=== PATIENT | male | born 1965 | race Caucasian/White ===

== ENCOUNTER 2017-08-21 02:58 | Inpatient (IN) | payer OTHER ==
[2017-08-21 03:59] LABS: ADD MAN DIFF? NO
[2017-08-21 04:08] LABS: BASOPHIL # 0.1 10^3/ul (0.0-0.1); BASOPHILS % 1.2 % (0.0-2.0); EOSINOPHILS # 0.6 10^3/ul (0.0-0.5); EOSINOPHILS % 8.9 % (0.0-7.0); HEMOGLOBIN 8.1 g/dl (14.0-18.0); LYMPHOCYTES # 1.5 10^3/ul (0.8-2.9); LYMPHOCYTES % 22.3 % (15.0-51.0); MEAN CORPUSCULAR HEMOGLOBIN 29.8 pg (29.0-33.0); MEAN CORPUSCULAR HGB CONC 33.8 g/dl (32.0-37.0); MEAN CORPUSCULAR VOLUME 88.2 fl (82.0-101.0); MEAN PLATELET VOLUME 8.8 fl (7.4-10.4); MONOCYTE # 0.7 10^3/ul (0.3-0.9); MONOCYTES % 11.2 % (0.0-11.0); NEUTROPHIL # 3.6 10^3/ul (1.6-7.5); NEUTROPHILS % 56.1 % (39.0-77.0); PLATELET COUNT 219 10^3/UL (140-415); RED BLOOD COUNT 2.72 10^6/ul (4.70-6.10)
[2017-08-21 04:08] LABS: WHITE BLOOD COUNT 6.5 10^3/ul (4.8-10.8)
[2017-08-21 04:09] LABS: ADD UMIC YES; UR ASCORBIC ACID 40 mg/dL (NEGATIVE); UR BACTERIA FEW /HPF (NONE SEEN); UR BILIRUBIN (Dip) NEGATIVE (NEGATIVE); UR BLOOD (Dip) 3+ mg/dL (NEGATIVE); UR CLARITY CLEAR (CLEAR); UR COLOR YELLOW (YELLOW); UR GLUCOSE (Dip) NEGATIVE (NEGATIVE); UR KETONES (Dip) NEGATIVE (NEGATIVE); UR LEUKOCYTE ESTERASE (Dip) NEGATIVE Leu/ul (NEGATIVE); UR NITRITE (Dip) NEGATIVE (NEGATIVE); UR RBC 144 /HPF (0-5); UR SPECIFIC GRAVITY (Dip) 1.011 (1.003-1.030); UR TOTAL PROTEIN (Dip) NEGATIVE (NEGATIVE); UR UROBILINOGEN (Dip) NEGATIVE (NEGATIVE); UR WBC 7 /HPF (0-5)
[2017-08-21 04:35] LABS: ALANINE AMINOTRANSFERASE 21 IU/L (13-69); ALBUMIN 3.2 g/dl (3.3-4.9); ALBUMIN/GLOBULIN RATIO 0.61; ALKALINE PHOSPHATASE 160 IU/L (42-121); ANION GAP 15 (8-16); ASPARTATE AMINO TRANSFERASE 29 IU/L (15-46); BILIRUBIN,INDIRECT 0.3 mg/dl (0-1.1); BILIRUBIN,TOTAL 0.3 mg/dl (0.2-1.3); BLOOD UREA NITROGEN 25 mg/dl (7-20); CALCIUM 9.3 mg/dl (8.4-10.2); CARBON DIOXIDE 23 mmol/L (21-31); CHLORIDE 100 mmol/L (97-110); CREATININE 1.52 mg/dl (0.61-1.24); GLUCOSE 116 mg/dl (70-220); LIPASE 360 U/L (23-300); POTASSIUM 4.4 mmol/L (3.5-5.1); SODIUM 134 mmol/L (135-144); TOTAL PROTEIN 8.4 g/dl (6.1-8.1)
[2017-08-21] MEDS: ONDANSETRON 4 MG INJ IV ×2 (04:48→22:04)
[2017-08-21] MEDS: morphine 4 MG/ML VIAL IV ×2 (04:48→06:45)
[2017-08-21] MEDS: PIPER-TAZO 3.375 GM IV (PMX) 50 ML IVPB (06:03)
[2017-08-21] MEDS: morphine 2 MG INJ IV ×3 (11:23→19:32)
[2017-08-21] MEDS ORDERED: DOCUSATE SODIUM 100 MG CAP PO (12:00)
[2017-08-21 17:50] LABS: ADD MAN DIFF? NO
[2017-08-21 17:55] LABS: BASOPHIL # 0.1 10^3/ul (0.0-0.1); BASOPHILS % 1.1 % (0.0-2.0); EOSINOPHILS # 0.4 10^3/ul (0.0-0.5); EOSINOPHILS % 5.4 % (0.0-7.0); HEMATOCRIT 20.9 % (42.0-52.0); HEMOGLOBIN 7.1 g/dl (14.0-18.0); LYMPHOCYTES # 1.7 10^3/ul (0.8-2.9); LYMPHOCYTES % 21.6 % (15.0-51.0); MEAN CORPUSCULAR HEMOGLOBIN 29.7 pg (29.0-33.0); MEAN CORPUSCULAR VOLUME 87.4 fl (82.0-101.0); MEAN PLATELET VOLUME 8.5 fl (7.4-10.4); MONOCYTE # 0.9 10^3/ul (0.3-0.9); MONOCYTES % 10.8 % (0.0-11.0); NEUTROPHIL # 4.8 10^3/ul (1.6-7.5); NEUTROPHILS % 60.7 % (39.0-77.0); PLATELET COUNT 199 10^3/UL (140-415); RED BLOOD COUNT 2.39 10^6/ul (4.70-6.10); RED CELL DISTRIBUTION WIDTH 14.8 % (11.5-14.5)
[2017-08-21] MEDS: LIDOCAINE 1% (MPF) 30 ML INJ INJ (22:09)
[2017-08-21] MEDS: FERROUS SULFATE (EC) 325 MG TAB PO (22:39)
[2017-08-21] MEDS: SOD CHLORIDE 0.9% 1,000 ML IV (22:39)
[2017-08-21] MEDS: CEFAZOLIN 1 GM/50 ML (PMX) 50 ML IVPB (23:19)
[2017-08-22] MEDS: CEFAZOLIN 1 GM/50 ML (PMX) 50 ML IVPB ×3 (05:16→21:24)
[2017-08-22] MEDS: morphine 2 MG INJ IV ×5 (05:19→21:24)
[2017-08-22] MEDS: FOLIC ACID 1 MG TAB PO (08:37)
[2017-08-22] MEDS: ZINC SULFATE 220 MG CAP PO (08:37)
[2017-08-22] MEDS: DULOXETINE 30 MG CAP DR PO (08:37)
[2017-08-22] MEDS: SPIRONOLACTONE 50 MG TAB PO (08:37)
[2017-08-22] MEDS: FERROUS SULFATE (EC) 325 MG TAB PO ×2 (08:37→21:24)
[2017-08-22] MEDS ORDERED: VITAMIN A & D 5 GM OINT PACKET TOP (10:32)
[2017-08-22 14:42] LABS: ADD MAN DIFF? NO
[2017-08-22 14:45] LABS: WHITE BLOOD COUNT 9.1 10^3/ul (4.8-10.8)
[2017-08-22 14:45] LABS: BASOPHIL # 0.1 10^3/ul (0.0-0.1); BASOPHILS % 1.1 % (0.0-2.0); EOSINOPHILS # 0.4 10^3/ul (0.0-0.5); EOSINOPHILS % 4.8 % (0.0-7.0); HEMATOCRIT 21.9 % (42.0-52.0); HEMOGLOBIN 7.7 g/dl (14.0-18.0); LYMPHOCYTES # 2.1 10^3/ul (0.8-2.9); LYMPHOCYTES % 23.2 % (15.0-51.0); MEAN CORPUSCULAR HEMOGLOBIN 30.4 pg (29.0-33.0); MEAN CORPUSCULAR HGB CONC 35.2 g/dl (32.0-37.0); MEAN CORPUSCULAR VOLUME 86.6 fl (82.0-101.0); MONOCYTE # 1.3 10^3/ul (0.3-0.9); MONOCYTES % 14.4 % (0.0-11.0); NEUTROPHIL # 5.1 10^3/ul (1.6-7.5); NEUTROPHILS % 55.9 % (39.0-77.0); PLATELET COUNT 162 10^3/UL (140-415); RED BLOOD COUNT 2.53 10^6/ul (4.70-6.10); RED CELL DISTRIBUTION WIDTH 15.6 % (11.5-14.5)
[2017-08-22 15:22] LABS: ANION GAP 13 (8-16); BLOOD UREA NITROGEN 23 mg/dl (7-20); CALCIUM 8.1 mg/dl (8.4-10.2); CARBON DIOXIDE 21 mmol/L (21-31); CHLORIDE 104 mmol/L (97-110); CREATININE 1.59 mg/dl (0.61-1.24); GLUCOSE 116 mg/dl (70-220); POTASSIUM 4.2 mmol/L (3.5-5.1); SODIUM 134 mmol/L (135-144)
[2017-08-22 15:33] LABS: INR 1.29; PROTIME 16.3 Sec (11.9-14.9); PT RATIO 1.3
[2017-08-22 15:34] LABS: PARTIAL THROMBOPLASTIN TIME 38.6 Sec (25.0-35.0)
[2017-08-22] MEDS: SOD CHLORIDE 0.9% 1,000 ML IV (17:26)
[2017-08-22] MEDS: TRIAMCINOLONE ACET 0.1% 15 GM CR TOP (21:23)
[2017-08-22] MEDS: ONDANSETRON 4 MG INJ IV (22:07)
[2017-08-23] MEDS ORDERED: HYDROmorphONE 0.5 MG/0.5 ML SYG IV (01:00)
[2017-08-23] MEDS: HYDROmorphONE 0.5 MG/0.5 ML SYG IV ×6 (01:44→21:51)
[2017-08-23 06:12] LABS: ADD MAN DIFF? NO
[2017-08-23 06:15] LABS: WHITE BLOOD COUNT 7.5 10^3/ul (4.8-10.8)
[2017-08-23 06:15] LABS: BASOPHIL # 0.1 10^3/ul (0.0-0.1); BASOPHILS % 1.1 % (0.0-2.0); EOSINOPHILS # 0.5 10^3/ul (0.0-0.5); EOSINOPHILS % 6.8 % (0.0-7.0); HEMATOCRIT 21.8 % (42.0-52.0); HEMOGLOBIN 7.5 g/dl (14.0-18.0); LYMPHOCYTES # 1.8 10^3/ul (0.8-2.9); LYMPHOCYTES % 23.4 % (15.0-51.0); MEAN CORPUSCULAR HEMOGLOBIN 29.9 pg (29.0-33.0); MEAN CORPUSCULAR HGB CONC 34.4 g/dl (32.0-37.0); MEAN CORPUSCULAR VOLUME 86.9 fl (82.0-101.0); MEAN PLATELET VOLUME 9.3 fl (7.4-10.4); MONOCYTE # 0.9 10^3/ul (0.3-0.9); MONOCYTES % 12.4 % (0.0-11.0); NEUTROPHIL # 4.2 10^3/ul (1.6-7.5); NEUTROPHILS % 55.9 % (39.0-77.0); PLATELET COUNT 154 10^3/UL (140-415); RED BLOOD COUNT 2.51 10^6/ul (4.70-6.10); RED CELL DISTRIBUTION WIDTH 15.5 % (11.5-14.5)
[2017-08-23 06:40] LABS: ANION GAP 11 (8-16); BLOOD UREA NITROGEN 19 mg/dl (7-20); CALCIUM 8.1 mg/dl (8.4-10.2); CARBON DIOXIDE 20 mmol/L (21-31); CHLORIDE 109 mmol/L (97-110); CREATININE 1.17 mg/dl (0.61-1.24); GLUCOSE 109 mg/dl (70-220); POTASSIUM 3.9 mmol/L (3.5-5.1); SODIUM 136 mmol/L (135-144)
[2017-08-23] MEDS: CEFAZOLIN 1 GM/50 ML (PMX) 50 ML IVPB ×3 (06:40→21:13)
[2017-08-23] MEDS: ZINC SULFATE 220 MG CAP PO (08:17)
[2017-08-23] MEDS: DULOXETINE 30 MG CAP DR PO (08:17)
[2017-08-23] MEDS: FERROUS SULFATE (EC) 325 MG TAB PO ×2 (08:18→21:13)
[2017-08-23] MEDS: FOLIC ACID 1 MG TAB PO (08:18)
[2017-08-23] MEDS: SPIRONOLACTONE 50 MG TAB PO (08:18)
[2017-08-23] MEDS: TRIAMCINOLONE ACET 0.1% 15 GM CR TOP ×2 (08:19→21:00)
[2017-08-24] MEDS: HYDROmorphONE 0.5 MG/0.5 ML SYG IV ×6 (02:05→23:43)
[2017-08-24] MEDS: CEFAZOLIN 1 GM/50 ML (PMX) 50 ML IVPB ×3 (05:51→22:06)
[2017-08-24 06:26] LABS: ABNORMAL IP MESSAGE 1; HEMATOCRIT 19.1 % (42.0-52.0); MEAN CORPUSCULAR HEMOGLOBIN 30.2 pg (29.0-33.0); MEAN CORPUSCULAR VOLUME 88.8 fl (82.0-101.0); MEAN PLATELET VOLUME 9.1 fl (7.4-10.4); PLATELET COUNT 137 10^3/UL (140-415); POSITIVE DIFF @See below; RED BLOOD COUNT 2.15 10^6/ul (4.70-6.10); RED CELL DISTRIBUTION WIDTH 15.5 % (11.5-14.5)
[2017-08-24 06:26] LABS: WHITE BLOOD COUNT 7.1 10^3/ul (4.8-10.8)
[2017-08-24 06:49] LABS: ALANINE AMINOTRANSFERASE 25 IU/L (13-69); ALBUMIN 2.2 g/dl (3.3-4.9); ALBUMIN/GLOBULIN RATIO 0.51; ALKALINE PHOSPHATASE 122 IU/L (42-121); ANION GAP 13 (8-16); ASPARTATE AMINO TRANSFERASE 28 IU/L (15-46); BILIRUBIN,INDIRECT 0.4 mg/dl (0-1.1); BILIRUBIN,TOTAL 0.4 mg/dl (0.2-1.3); BLOOD UREA NITROGEN 15 mg/dl (7-20); CALCIUM 8.4 mg/dl (8.4-10.2); CARBON DIOXIDE 19 mmol/L (21-31); CHLORIDE 112 mmol/L (97-110); CREATININE 1.02 mg/dl (0.61-1.24); GLUCOSE 107 mg/dl (70-220); POTASSIUM 4.2 mmol/L (3.5-5.1); SODIUM 140 mmol/L (135-144); TOTAL PROTEIN 6.5 g/dl (6.1-8.1)
[2017-08-24 07:02] LABS: PROTIME 15.4 Sec (11.9-14.9); PT RATIO 1.2
[2017-08-24 07:03] LABS: PARTIAL THROMBOPLASTIN TIME 34.9 Sec (25.0-35.0)
[2017-08-24 07:07] LABS: ADD MAN DIFF? YES; HEMOGLOBIN 6.5 g/dl (14.0-18.0)
[2017-08-24] MEDS: FERROUS SULFATE (EC) 325 MG TAB PO ×2 (08:25→20:27)
[2017-08-24] MEDS: DULOXETINE 30 MG CAP DR PO (08:25)
[2017-08-24] MEDS: ZINC SULFATE 220 MG CAP PO (08:25)
[2017-08-24] MEDS: TRIAMCINOLONE ACET 0.1% 15 GM CR TOP ×2 (08:25→20:28)
[2017-08-24] MEDS: SPIRONOLACTONE 50 MG TAB PO (08:25)
[2017-08-24] MEDS: FOLIC ACID 1 MG TAB PO (08:25)
[2017-08-24 10:00] LABS: ANISOCYTOSIS 2+ (0-0); BAND NEUTROPHILS #M 0.2 10^3/ul (0.0-0.6); BAND NEUTROPHILS % (M) 3 % (0-4); EOSINOPHILS % (M) 3 % (0-7); LYMPHOCYTES #M 1.6 10^3/ul (0.8-2.9); LYMPHOCYTES % (M) 23 % (15-51); MONOCYTE #M 0.5 10^3/ul (0.3-0.9); MONOCYTES % (M) 8 % (0-11); PLATELET ESTIMATE NORMAL; POLYCHROMASIA 3+ (0-0); SEG NEUT #M 4.5 10^3/ul (1.7-7.5); SEGMENTED NEUTROPHILS (M) % 63 % (39-77); SMUDGE%M 2 % (0-0)
[2017-08-24 12:36] LABS: IMMEDIATE SPIN CROSSMATCH 1 6
[2017-08-25] MEDS: HYDROmorphONE 0.5 MG/0.5 ML SYG IV ×6 (03:43→23:51)
[2017-08-25 06:04] LABS: ADD MAN DIFF? NO
[2017-08-25 06:21] LABS: BASOPHIL # 0.1 10^3/ul (0.0-0.1); BASOPHILS % 1.1 % (0.0-2.0); EOSINOPHILS # 0.5 10^3/ul (0.0-0.5); EOSINOPHILS % 7.3 % (0.0-7.0); HEMATOCRIT 25.7 % (42.0-52.0); HEMOGLOBIN 8.5 g/dl (14.0-18.0); LYMPHOCYTES # 1.5 10^3/ul (0.8-2.9); LYMPHOCYTES % 23.2 % (15.0-51.0); MEAN CORPUSCULAR HGB CONC 33.1 g/dl (32.0-37.0); MEAN CORPUSCULAR VOLUME 87.7 fl (82.0-101.0); MONOCYTE # 0.7 10^3/ul (0.3-0.9); MONOCYTES % 10.7 % (0.0-11.0); NEUTROPHIL # 3.7 10^3/ul (1.6-7.5); NEUTROPHILS % 57.1 % (39.0-77.0); PLATELET COUNT 158 10^3/UL (140-415); RED BLOOD COUNT 2.93 10^6/ul (4.70-6.10); RED CELL DISTRIBUTION WIDTH 16.6 % (11.5-14.5)
[2017-08-25 06:21] LABS: WHITE BLOOD COUNT 6.5 10^3/ul (4.8-10.8)
[2017-08-25] MEDS: CEFAZOLIN 1 GM/50 ML (PMX) 50 ML IVPB ×3 (06:35→22:00)
[2017-08-25 06:49] LABS: ANION GAP 11 (8-16); BLOOD UREA NITROGEN 14 mg/dl (7-20); CALCIUM 8.2 mg/dl (8.4-10.2); CARBON DIOXIDE 19 mmol/L (21-31); CHLORIDE 110 mmol/L (97-110); GLUCOSE 89 mg/dl (70-220); POTASSIUM 4.8 mmol/L (3.5-5.1); SODIUM 135 mmol/L (135-144)
[2017-08-25] MEDS: ZINC SULFATE 220 MG CAP PO (09:29)
[2017-08-25] MEDS: FERROUS SULFATE (EC) 325 MG TAB PO ×2 (09:29→21:59)
[2017-08-25] MEDS: FOLIC ACID 1 MG TAB PO (09:29)
[2017-08-25] MEDS: TRIAMCINOLONE ACET 0.1% 15 GM CR TOP ×2 (09:29→21:59)
[2017-08-25] MEDS: DULOXETINE 30 MG CAP DR PO (09:29)
[2017-08-25] MEDS: SPIRONOLACTONE 50 MG TAB PO (09:29)
[2017-08-25] MEDS: ONDANSETRON 4 MG INJ IV (13:04)
[2017-08-25] MEDS: METOCLOPRAMIDE 10 MG INJ IV (16:12)
[2017-08-26] MEDS: METOCLOPRAMIDE 10 MG INJ IV (01:37)
[2017-08-26] MEDS: DIPHENOXYLATE/ATROPINE TAB PO (02:16)
[2017-08-26] MEDS: HYDROmorphONE 0.5 MG/0.5 ML SYG IV ×5 (04:33→22:13)
[2017-08-26] MEDS: CEFAZOLIN 1 GM/50 ML (PMX) 50 ML IVPB ×3 (05:28→22:08)
[2017-08-26 06:05] LABS: ADD MAN DIFF? NO
[2017-08-26 06:13] LABS: BASOPHIL # 0.1 10^3/ul (0.0-0.1); BASOPHILS % 0.3 % (0.0-2.0); EOSINOPHILS % 0.1 % (0.0-7.0); HEMATOCRIT 27.1 % (42.0-52.0); LYMPHOCYTES # 1.3 10^3/ul (0.8-2.9); LYMPHOCYTES % 6.1 % (15.0-51.0); MEAN CORPUSCULAR HEMOGLOBIN 29.5 pg (29.0-33.0); MEAN CORPUSCULAR HGB CONC 33.2 g/dl (32.0-37.0); MEAN CORPUSCULAR VOLUME 88.9 fl (82.0-101.0); MEAN PLATELET VOLUME 9.3 fl (7.4-10.4); MONOCYTE # 1.4 10^3/ul (0.3-0.9); MONOCYTES % 6.7 % (0.0-11.0); NEUTROPHIL # 18.3 10^3/ul (1.6-7.5); NEUTROPHILS % 86.3 % (39.0-77.0); PLATELET COUNT 172 10^3/UL (140-415); RED BLOOD COUNT 3.05 10^6/ul (4.70-6.10); RED CELL DISTRIBUTION WIDTH 16.5 % (11.5-14.5)
[2017-08-26 06:13] LABS: WHITE BLOOD COUNT 21.2 10^3/ul (4.8-10.8)
[2017-08-26] MEDS: SPIRONOLACTONE 50 MG TAB PO (09:38)
[2017-08-26] MEDS: FERROUS SULFATE (EC) 325 MG TAB PO ×2 (09:38→20:05)
[2017-08-26] MEDS: FOLIC ACID 1 MG TAB PO (09:38)
[2017-08-26] MEDS: TRIAMCINOLONE ACET 0.1% 15 GM CR TOP ×2 (09:38→20:05)
[2017-08-26] MEDS: ZINC SULFATE 220 MG CAP PO (09:38)
[2017-08-26] MEDS: DULOXETINE 30 MG CAP DR PO (09:38)
[2017-08-26 16:23] LABS: ADD MAN DIFF? NO
[2017-08-26 16:29] LABS: BASOPHIL # 0.1 10^3/ul (0.0-0.1); BASOPHILS % 0.4 % (0.0-2.0); EOSINOPHILS # 0.3 10^3/ul (0.0-0.5); EOSINOPHILS % 1.8 % (0.0-7.0); HEMATOCRIT 26.4 % (42.0-52.0); HEMOGLOBIN 8.9 g/dl (14.0-18.0); LYMPHOCYTES # 1.4 10^3/ul (0.8-2.9); LYMPHOCYTES % 7.9 % (15.0-51.0); MEAN CORPUSCULAR HEMOGLOBIN 30.2 pg (29.0-33.0); MEAN CORPUSCULAR HGB CONC 33.7 g/dl (32.0-37.0); MEAN CORPUSCULAR VOLUME 89.5 fl (82.0-101.0); MEAN PLATELET VOLUME 9.3 fl (7.4-10.4); MONOCYTE # 1.4 10^3/ul (0.3-0.9); MONOCYTES % 7.6 % (0.0-11.0); NEUTROPHILS % 81.9 % (39.0-77.0); PLATELET COUNT 155 10^3/UL (140-415); RED BLOOD COUNT 2.95 10^6/ul (4.70-6.10); RED CELL DISTRIBUTION WIDTH 16.2 % (11.5-14.5)
[2017-08-26 16:29] LABS: WHITE BLOOD COUNT 18.3 10^3/ul (4.8-10.8)
[2017-08-26 18:56] LABS: ADD UMIC YES; UR ASCORBIC ACID 20 mg/dL (NEGATIVE); UR BACTERIA FEW /HPF (NONE SEEN); UR BILIRUBIN (Dip) NEGATIVE (NEGATIVE); UR BLOOD (Dip) 3+ mg/dL (NEGATIVE); UR CLARITY CLEAR (CLEAR); UR COLOR YELLOW (YELLOW); UR GLUCOSE (Dip) NEGATIVE (NEGATIVE); UR KETONES (Dip) NEGATIVE (NEGATIVE); UR LEUKOCYTE ESTERASE (Dip) NEGATIVE Leu/ul (NEGATIVE); UR MUCUS FEW /HPF (NONE SEEN); UR NITRITE (Dip) NEGATIVE (NEGATIVE); UR RBC > 182 /HPF (0-5); UR SPECIFIC GRAVITY (Dip) 1.016 (1.003-1.030); UR TOTAL PROTEIN (Dip) 1+ mg/dl (NEGATIVE); UR UROBILINOGEN (Dip) NEGATIVE (NEGATIVE); UR WBC 15 /HPF (0-5)
[2017-08-26] MEDS ORDERED: TEMAZEPAM 15 MG CAP PO (23:59)
[2017-08-27] MEDS: HYDROmorphONE 0.5 MG/0.5 ML SYG IV ×4 (02:41→13:16)
[2017-08-27 05:50] LABS: ADD MAN DIFF? NO
[2017-08-27 05:54] LABS: BASOPHIL # 0.1 10^3/ul (0.0-0.1); BASOPHILS % 0.6 % (0.0-2.0); EOSINOPHILS # 0.5 10^3/ul (0.0-0.5); EOSINOPHILS % 3.9 % (0.0-7.0); HEMATOCRIT 24.4 % (42.0-52.0); HEMOGLOBIN 8.2 g/dl (14.0-18.0); LYMPHOCYTES # 1.1 10^3/ul (0.8-2.9); LYMPHOCYTES % 8.7 % (15.0-51.0); MEAN CORPUSCULAR HEMOGLOBIN 29.7 pg (29.0-33.0); MEAN CORPUSCULAR HGB CONC 33.6 g/dl (32.0-37.0); MEAN CORPUSCULAR VOLUME 88.4 fl (82.0-101.0); MEAN PLATELET VOLUME 9.2 fl (7.4-10.4); MONOCYTES % 7.7 % (0.0-11.0); NEUTROPHIL # 9.8 10^3/ul (1.6-7.5); NEUTROPHILS % 78.7 % (39.0-77.0); PLATELET COUNT 138 10^3/UL (140-415); RED BLOOD COUNT 2.76 10^6/ul (4.70-6.10); RED CELL DISTRIBUTION WIDTH 16.2 % (11.5-14.5)
[2017-08-27 05:54] LABS: WHITE BLOOD COUNT 12.4 10^3/ul (4.8-10.8)
[2017-08-27] MEDS: CEFAZOLIN 1 GM/50 ML (PMX) 50 ML IVPB ×3 (05:57→21:04)
[2017-08-27] MEDS: DULOXETINE 30 MG CAP DR PO (08:41)
[2017-08-27] MEDS: FERROUS SULFATE (EC) 325 MG TAB PO ×2 (08:41→21:03)
[2017-08-27] MEDS: FOLIC ACID 1 MG TAB PO (08:41)
[2017-08-27] MEDS: ZINC SULFATE 220 MG CAP PO (08:41)
[2017-08-27] MEDS: SPIRONOLACTONE 50 MG TAB PO (08:41)
[2017-08-27] MEDS: TRIAMCINOLONE ACET 0.1% 15 GM CR TOP ×2 (08:42→21:05)
[2017-08-27] MEDS: DIPHENOXYLATE/ATROPINE TAB PO (16:43)
[2017-08-27] MEDS: HYDROmorphONE 2 MG TAB PO ×2 (17:49→21:04)
[2017-08-27] MEDS: ZOLPIDEM 5 MG TAB PO (21:04)
[2017-08-28] MEDS: HYDROmorphONE 2 MG TAB PO ×4 (04:10→21:06)
[2017-08-28 05:44] LABS: ADD MAN DIFF? NO
[2017-08-28 05:59] LABS: BASOPHIL # 0.1 10^3/ul (0.0-0.1); BASOPHILS % 0.9 % (0.0-2.0); EOSINOPHILS # 0.8 10^3/ul (0.0-0.5); EOSINOPHILS % 10.6 % (0.0-7.0); HEMATOCRIT 24.4 % (42.0-52.0); HEMOGLOBIN 8.1 g/dl (14.0-18.0); LYMPHOCYTES # 1.2 10^3/ul (0.8-2.9); LYMPHOCYTES % 15.5 % (15.0-51.0); MEAN CORPUSCULAR HEMOGLOBIN 29.7 pg (29.0-33.0); MEAN CORPUSCULAR HGB CONC 33.2 g/dl (32.0-37.0); MEAN CORPUSCULAR VOLUME 89.4 fl (82.0-101.0); MEAN PLATELET VOLUME 9.4 fl (7.4-10.4); MONOCYTE # 0.9 10^3/ul (0.3-0.9); MONOCYTES % 11.6 % (0.0-11.0); NEUTROPHIL # 4.6 10^3/ul (1.6-7.5); NEUTROPHILS % 60.7 % (39.0-77.0); PLATELET COUNT 148 10^3/UL (140-415); RED BLOOD COUNT 2.73 10^6/ul (4.70-6.10)
[2017-08-28 05:59] LABS: WHITE BLOOD COUNT 7.6 10^3/ul (4.8-10.8)
[2017-08-28] MEDS: morphine 2 MG INJ IV ×3 (06:22→18:46)
[2017-08-28] MEDS: CEFAZOLIN 1 GM/50 ML (PMX) 50 ML IVPB ×3 (06:22→21:11)
[2017-08-28 06:28] LABS: ANION GAP 11 (8-16); BLOOD UREA NITROGEN 16 mg/dl (7-20); CALCIUM 8.3 mg/dl (8.4-10.2); CARBON DIOXIDE 16 mmol/L (21-31); CHLORIDE 108 mmol/L (97-110); CREATININE 0.86 mg/dl (0.61-1.24); GLUCOSE 92 mg/dl (70-220); POTASSIUM 4.1 mmol/L (3.5-5.1); SODIUM 131 mmol/L (135-144)
[2017-08-28] MEDS: FERROUS SULFATE (EC) 325 MG TAB PO ×2 (08:21→21:06)
[2017-08-28] MEDS: FOLIC ACID 1 MG TAB PO (08:21)
[2017-08-28] MEDS: DULOXETINE 30 MG CAP DR PO (08:21)
[2017-08-28] MEDS: SPIRONOLACTONE 50 MG TAB PO (08:21)
[2017-08-28] MEDS: ZINC SULFATE 220 MG CAP PO (08:21)
[2017-08-28] MEDS: TRIAMCINOLONE ACET 0.1% 15 GM CR TOP ×2 (08:21→21:11)
[2017-08-28] MEDS: VANCOMYCIN HCL 250 MG/5ML POSYG PO (16:48)
[2017-08-28] MEDS ORDERED: HYDROmorphONE 0.5 MG/0.5 ML SYG IV (19:30)
[2017-08-28] MEDS: IBUPROFEN 400 MG TAB PO (21:06)
[2017-08-28] MEDS: ZOLPIDEM 5 MG TAB PO (21:06)
[2017-08-28] MEDS: LIDOCAINE 5% PATCH TD (21:09)
[2017-08-29] MEDS: VANCOMYCIN HCL 250 MG/5ML POSYG PO ×4 (01:00→18:50)
[2017-08-29] MEDS: morphine 4 MG/ML VIAL IV ×3 (01:00→19:45)
[2017-08-29] MEDS: CEFAZOLIN 1 GM/50 ML (PMX) 50 ML IVPB ×2 (05:06→15:00)
[2017-08-29] MEDS: HYDROmorphONE 2 MG TAB PO ×2 (05:06→17:00)
[2017-08-29 05:51] LABS: HEMATOCRIT 23.8 % (42.0-52.0); HEMOGLOBIN 7.9 g/dl (14.0-18.0); MEAN CORPUSCULAR HEMOGLOBIN 29.9 pg (29.0-33.0); MEAN CORPUSCULAR HGB CONC 33.2 g/dl (32.0-37.0); MEAN CORPUSCULAR VOLUME 90.2 fl (82.0-101.0); MEAN PLATELET VOLUME 8.8 fl (7.4-10.4); PLATELET COUNT 140 10^3/UL (140-415); POSITIVE DIFF @See below; RED BLOOD COUNT 2.64 10^6/ul (4.70-6.10); RED CELL DISTRIBUTION WIDTH 15.9 % (11.5-14.5)
[2017-08-29 05:51] LABS: WHITE BLOOD COUNT 6.4 10^3/ul (4.8-10.8)
[2017-08-29 06:04] LABS: ADD MAN DIFF? YES
[2017-08-29 06:27] LABS: ANION GAP 12 (8-16); BLOOD UREA NITROGEN 16 mg/dl (7-20); CALCIUM 8.3 mg/dl (8.4-10.2); CARBON DIOXIDE 18 mmol/L (21-31); CHLORIDE 108 mmol/L (97-110); CREATININE 0.99 mg/dl (0.61-1.24); GLUCOSE 101 mg/dl (70-220); POTASSIUM 4.7 mmol/L (3.5-5.1); SODIUM 133 mmol/L (135-144)
[2017-08-29] MEDS: ZINC SULFATE 220 MG CAP PO (09:18)
[2017-08-29] MEDS: SPIRONOLACTONE 50 MG TAB PO (09:19)
[2017-08-29] MEDS: DULOXETINE 30 MG CAP DR PO (09:19)
[2017-08-29] MEDS: FOLIC ACID 1 MG TAB PO (09:19)
[2017-08-29] MEDS: FERROUS SULFATE (EC) 325 MG TAB PO ×2 (09:19→19:45)
[2017-08-29] MEDS: LIDOCAINE 5% PATCH TD (09:22)
[2017-08-29] MEDS: TRIAMCINOLONE ACET 0.1% 15 GM CR TOP ×2 (09:30→19:49)
[2017-08-29 09:46] LABS: ANISOCYTOSIS 1+ (0-0); BAND NEUTROPHILS #M 2.4 10^3/ul (0.0-0.6); BAND NEUTROPHILS % (M) 38 % (0-4); BASOPHILS % (M) 1 % (0-2); EOSINOPHILS % (M) 10 % (0-7); LYMPHOCYTES #M 0.8 10^3/ul (0.8-2.9); LYMPHOCYTES % (M) 13 % (15-51); MONOCYTES % (M) 16 % (0-11); PLATELET ESTIMATE NORMAL; POLYCHROMASIA 1+ (0-0); SEG NEUT #M 1.6 10^3/ul (1.7-7.5); SEGMENTED NEUTROPHILS (M) % 22 % (39-77)
[2017-08-29] MEDS: SOD CHLORIDE 0.9% 1,000 ML IV ×2 (13:30→23:30)
[2017-08-29] MEDS ORDERED: VANCOMYCIN IV PER PHARMACY XX (15:30)
[2017-08-29] MEDS: VANCOMYCIN 1.25 GM in SOD CHLORIDE 0.9% 250 ML IVPB (17:13)
[2017-08-29] MEDS: ZOLPIDEM 5 MG TAB PO (22:08)
[2017-08-30] MEDS: VANCOMYCIN HCL 250 MG/5ML POSYG PO ×5 (00:14→23:16)
[2017-08-30] MEDS: morphine 4 MG/ML VIAL IV ×6 (00:15→20:18)
[2017-08-30] MEDS: SOD CHLORIDE 0.9% 1,000 ML IV ×3 (04:24→16:20)
[2017-08-30] MEDS: VANCOMYCIN 750 MG in DEXTROSE 5% 150 ML IVPB ×2 (04:24→16:20)
[2017-08-30 06:12] LABS: WHITE BLOOD COUNT 4.1 10^3/ul (4.8-10.8)
[2017-08-30 06:12] LABS: ADD MAN DIFF? NO; EOSINOPHILS # 0.5 10^3/ul (0.0-0.5); EOSINOPHILS % 11.1 % (0.0-7.0); HEMATOCRIT 22.7 % (42.0-52.0); HEMOGLOBIN 7.6 g/dl (14.0-18.0); LYMPHOCYTES # 1.1 10^3/ul (0.8-2.9); LYMPHOCYTES % 25.8 % (15.0-51.0); MEAN CORPUSCULAR HEMOGLOBIN 29.9 pg (29.0-33.0); MEAN CORPUSCULAR HGB CONC 33.5 g/dl (32.0-37.0); MEAN CORPUSCULAR VOLUME 89.4 fl (82.0-101.0); MEAN PLATELET VOLUME 9.3 fl (7.4-10.4); NEUTROPHIL # 1.6 10^3/ul (1.6-7.5); NEUTROPHILS % 38.2 % (39.0-77.0); PLATELET COUNT 142 10^3/UL (140-415); RED BLOOD COUNT 2.54 10^6/ul (4.70-6.10); RED CELL DISTRIBUTION WIDTH 15.9 % (11.5-14.5)
[2017-08-30] MEDS: HYDROmorphONE 2 MG TAB PO ×4 (06:21→23:17)
[2017-08-30 06:51] LABS: ANION GAP 13 (8-16); BLOOD UREA NITROGEN 11 mg/dl (7-20); CALCIUM 8.5 mg/dl (8.4-10.2); CARBON DIOXIDE 16 mmol/L (21-31); CHLORIDE 108 mmol/L (97-110); CREATININE 0.73 mg/dl (0.61-1.24); GLUCOSE 98 mg/dl (70-220); POTASSIUM 4.7 mmol/L (3.5-5.1); SODIUM 132 mmol/L (135-144)
[2017-08-30 08:09] LABS: MONOCYTES % 23.1 % (0.0-11.0)
[2017-08-30] MEDS: FOLIC ACID 1 MG TAB PO (08:36)
[2017-08-30] MEDS: ZINC SULFATE 220 MG CAP PO (08:36)
[2017-08-30] MEDS: DULOXETINE 30 MG CAP DR PO (08:36)
[2017-08-30] MEDS: FERROUS SULFATE (EC) 325 MG TAB PO ×2 (08:36→20:18)
[2017-08-30] MEDS: SPIRONOLACTONE 50 MG TAB PO (08:38)
[2017-08-30] MEDS: LIDOCAINE 5% PATCH TD (08:38)
[2017-08-30] MEDS: TRIAMCINOLONE ACET 0.1% 15 GM CR TOP ×2 (08:42→20:25)
[2017-08-30] MEDS: ONDANSETRON 4 MG INJ IV (09:06)
[2017-08-30] MEDS ORDERED: VANCOMYCIN 1 GM in NS 250 ML IVPB (11:00)
[2017-08-30] MEDS: SOD CHLORIDE 0.9% 250 ML IV* (15:33)
[2017-08-30 16:59] LABS: IRON 38 ug/dl (35-150)
[2017-08-30 17:08] LABS: % IRON SATURATION 19 % SAT (22-52); TOTAL IRON BINDING CAPACITY 205 ug/dl (241-421)
[2017-08-30 17:20] LABS: PLATELET COUNT 153 10^3/UL (140-415)
[2017-08-30 17:28] LABS: INR 1.27; PARTIAL THROMBOPLASTIN TIME 37.9 Sec (25.0-35.0); PROTIME 16.1 Sec (11.9-14.9); PT RATIO 1.3
[2017-08-30 17:32] LABS: THROMBIN TIME 15.8 SEC (13.8-19.1)
[2017-08-30 18:30] LABS: IMMEDIATE SPIN CROSSMATCH 1 2
[2017-08-30 19:55] LABS: LACTATE DEHYDROGENASE 301 IU/L (313-618)
[2017-08-30 21:17] LABS: FOLATE > 20.0 ng/ml (2.8-20.0)
[2017-08-30] MEDS: ZOLPIDEM 5 MG TAB PO (23:16)
[2017-08-31] MEDS: HYDROmorphONE 2 MG TAB PO ×4 (04:08→21:23)
[2017-08-31 04:10] LABS: ADD MAN DIFF? NO
[2017-08-31 04:12] LABS: BASOPHIL # 0.1 10^3/ul (0.0-0.1); BASOPHILS % 1.4 % (0.0-2.0); EOSINOPHILS # 0.4 10^3/ul (0.0-0.5); HEMATOCRIT 27.3 % (42.0-52.0); HEMOGLOBIN 9.3 g/dl (14.0-18.0); LYMPHOCYTES % 26.7 % (15.0-51.0); MEAN CORPUSCULAR HEMOGLOBIN 30.2 pg (29.0-33.0); MEAN CORPUSCULAR HGB CONC 34.1 g/dl (32.0-37.0); MEAN CORPUSCULAR VOLUME 88.6 fl (82.0-101.0); MEAN PLATELET VOLUME 8.9 fl (7.4-10.4); MONOCYTE # 0.8 10^3/ul (0.3-0.9); MONOCYTES % 21.9 % (0.0-11.0); NEUTROPHIL # 1.4 10^3/ul (1.6-7.5); NEUTROPHILS % 39.2 % (39.0-77.0); PLATELET COUNT 147 10^3/UL (140-415); RED BLOOD COUNT 3.08 10^6/ul (4.70-6.10); RED CELL DISTRIBUTION WIDTH 15.6 % (11.5-14.5)
[2017-08-31 04:12] LABS: WHITE BLOOD COUNT 3.6 10^3/ul (4.8-10.8)
[2017-08-31 04:33] LABS: ANION GAP 10 (8-16); BLOOD UREA NITROGEN 9 mg/dl (7-20); CALCIUM 8.4 mg/dl (8.4-10.2); CARBON DIOXIDE 17 mmol/L (21-31); CHLORIDE 113 mmol/L (97-110); CREATININE 0.74 mg/dl (0.61-1.24); GLUCOSE 101 mg/dl (70-220); POTASSIUM 4.9 mmol/L (3.5-5.1); SODIUM 135 mmol/L (135-144)
[2017-08-31 04:38] LABS: VANCOMYCIN,TROUGH 13.2 ug/ml (10.0-20.0)
[2017-08-31] MEDS: SOD CHLORIDE 0.9% 1,000 ML IV ×3 (05:10→17:26)
[2017-08-31] MEDS: VANCOMYCIN 750 MG in DEXTROSE 5% 150 ML IVPB ×2 (05:11→17:25)
[2017-08-31] MEDS: VANCOMYCIN HCL 250 MG/5ML POSYG PO ×4 (05:11→23:14)
[2017-08-31] MEDS: SPIRONOLACTONE 50 MG TAB PO (09:20)
[2017-08-31] MEDS: FOLIC ACID 1 MG TAB PO (09:20)
[2017-08-31] MEDS: FERROUS SULFATE (EC) 325 MG TAB PO ×2 (09:20→21:23)
[2017-08-31] MEDS: DULOXETINE 30 MG CAP DR PO (09:20)
[2017-08-31] MEDS: ZINC SULFATE 220 MG CAP PO (09:21)
[2017-08-31] MEDS: LIDOCAINE 5% PATCH TD (09:22)
[2017-08-31] MEDS: TRIAMCINOLONE ACET 0.1% 15 GM CR TOP ×2 (09:23→21:24)
[2017-08-31] MEDS: morphine 4 MG/ML VIAL IV ×2 (11:48→17:33)
[2017-08-31 20:18] LABS: OCCULT BLOOD STOOL POSITIVE (NEGATIVE)
[2017-08-31] MEDS: ZOLPIDEM 5 MG TAB PO (22:41)
[2017-09-01] MEDS: HYDROmorphONE 2 MG TAB PO ×4 (02:25→21:31)
[2017-09-01] MEDS: VANCOMYCIN HCL 250 MG/5ML POSYG PO ×3 (05:24→17:27)
[2017-09-01] MEDS: VANCOMYCIN 750 MG in DEXTROSE 5% 150 ML IVPB (05:25)
[2017-09-01] MEDS: morphine 4 MG/ML VIAL IV (05:25)
[2017-09-01 06:31] LABS: WHITE BLOOD COUNT 4.2 10^3/ul (4.8-10.8)
[2017-09-01 06:31] LABS: ADD MAN DIFF? NO; BASOPHIL # 0.1 10^3/ul (0.0-0.1); BASOPHILS % 1.2 % (0.0-2.0); EOSINOPHILS # 0.4 10^3/ul (0.0-0.5); EOSINOPHILS % 9.5 % (0.0-7.0); HEMATOCRIT 27.6 % (42.0-52.0); HEMOGLOBIN 9.2 g/dl (14.0-18.0); LYMPHOCYTES # 1.2 10^3/ul (0.8-2.9); LYMPHOCYTES % 27.4 % (15.0-51.0); MEAN CORPUSCULAR HEMOGLOBIN 29.9 pg (29.0-33.0); MEAN CORPUSCULAR HGB CONC 33.3 g/dl (32.0-37.0); MEAN CORPUSCULAR VOLUME 89.6 fl (82.0-101.0); MEAN PLATELET VOLUME 9.1 fl (7.4-10.4); MONOCYTE # 0.8 10^3/ul (0.3-0.9); MONOCYTES % 19.4 % (0.0-11.0); NEUTROPHIL # 1.8 10^3/ul (1.6-7.5); NEUTROPHILS % 41.6 % (39.0-77.0); PLATELET COUNT 166 10^3/UL (140-415); RED BLOOD COUNT 3.08 10^6/ul (4.70-6.10)
[2017-09-01 06:58] LABS: ANION GAP 13 (8-16); BLOOD UREA NITROGEN 9 mg/dl (7-20); CALCIUM 8.6 mg/dl (8.4-10.2); CARBON DIOXIDE 16 mmol/L (21-31); CHLORIDE 114 mmol/L (97-110); CREATININE 0.79 mg/dl (0.61-1.24); GLUCOSE 93 mg/dl (70-220); POTASSIUM 4.9 mmol/L (3.5-5.1); SODIUM 138 mmol/L (135-144)
[2017-09-01] MEDS: TRIAMCINOLONE ACET 0.1% 15 GM CR TOP ×2 (09:01→21:09)
[2017-09-01] MEDS: SPIRONOLACTONE 50 MG TAB PO (09:01)
[2017-09-01] MEDS: FERROUS SULFATE (EC) 325 MG TAB PO ×2 (09:01→21:02)
[2017-09-01] MEDS: FOLIC ACID 1 MG TAB PO (09:01)
[2017-09-01] MEDS: ZINC SULFATE 220 MG CAP PO (09:01)
[2017-09-01] MEDS: DULOXETINE 30 MG CAP DR PO (09:01)
[2017-09-01] MEDS: LIDOCAINE 5% PATCH TD (09:04)
[2017-09-01] MEDS: ZOLPIDEM 5 MG TAB PO (21:30)
[2017-09-02] MEDS: VANCOMYCIN HCL 250 MG/5ML POSYG PO ×4 (00:17→17:49)
[2017-09-02] MEDS: HYDROmorphONE 2 MG TAB PO ×5 (03:04→21:45)
[2017-09-02] MEDS: LIDOCAINE 5% PATCH TD (08:39)
[2017-09-02] MEDS: FOLIC ACID 1 MG TAB PO (08:40)
[2017-09-02] MEDS: DULOXETINE 30 MG CAP DR PO (08:40)
[2017-09-02] MEDS: ZINC SULFATE 220 MG CAP PO (08:40)
[2017-09-02] MEDS: SPIRONOLACTONE 50 MG TAB PO (08:40)
[2017-09-02] MEDS: TRIAMCINOLONE ACET 0.1% 15 GM CR TOP ×2 (08:42→21:45)
[2017-09-02] MEDS: FERROUS SULFATE (EC) 325 MG TAB PO ×2 (08:52→21:44)
[2017-09-02] MEDS: CITRIC ACID/SODIUM CITRATE 15 ML CUP PO ×2 (17:03→21:44)
[2017-09-03] MEDS: HYDROmorphONE 2 MG TAB PO ×5 (02:18→20:24)
[2017-09-03] MEDS: VANCOMYCIN HCL 250 MG/5ML POSYG PO ×5 (02:19→17:53)
[2017-09-03 06:00] LABS: ADD MAN DIFF? NO
[2017-09-03 06:11] LABS: BASOPHIL # 0.1 10^3/ul (0.0-0.1); EOSINOPHILS # 0.4 10^3/ul (0.0-0.5); EOSINOPHILS % 5.5 % (0.0-7.0); HEMATOCRIT 30.8 % (42.0-52.0); HEMOGLOBIN 10.1 g/dl (14.0-18.0); LYMPHOCYTES # 1.4 10^3/ul (0.8-2.9); MEAN CORPUSCULAR HEMOGLOBIN 30.1 pg (29.0-33.0); MEAN CORPUSCULAR HGB CONC 32.8 g/dl (32.0-37.0); MEAN CORPUSCULAR VOLUME 91.7 fl (82.0-101.0); MEAN PLATELET VOLUME 8.7 fl (7.4-10.4); MONOCYTE # 0.7 10^3/ul (0.3-0.9); MONOCYTES % 10.7 % (0.0-11.0); NEUTROPHIL # 4.1 10^3/ul (1.6-7.5); NEUTROPHILS % 60.6 % (39.0-77.0); PLATELET COUNT 208 10^3/UL (140-415); RED BLOOD COUNT 3.36 10^6/ul (4.70-6.10); RED CELL DISTRIBUTION WIDTH 15.9 % (11.5-14.5)
[2017-09-03 06:11] LABS: WHITE BLOOD COUNT 6.8 10^3/ul (4.8-10.8)
[2017-09-03 06:55] LABS: ANION GAP 13 (8-16); BLOOD UREA NITROGEN 8 mg/dl (7-20); CALCIUM 8.8 mg/dl (8.4-10.2); CARBON DIOXIDE 20 mmol/L (21-31); CHLORIDE 110 mmol/L (97-110); CREATININE 0.77 mg/dl (0.61-1.24); GLUCOSE 96 mg/dl (70-220); POTASSIUM 4.6 mmol/L (3.5-5.1); SODIUM 138 mmol/L (135-144)
[2017-09-03] MEDS: CITRIC ACID/SODIUM CITRATE 15 ML CUP PO ×2 (09:03→20:23)
[2017-09-03] MEDS: FOLIC ACID 1 MG TAB PO (09:03)
[2017-09-03] MEDS: DULOXETINE 30 MG CAP DR PO (09:03)
[2017-09-03] MEDS: SPIRONOLACTONE 50 MG TAB PO (09:03)
[2017-09-03] MEDS: FERROUS SULFATE (EC) 325 MG TAB PO ×2 (09:03→20:22)
[2017-09-03] MEDS: ZINC SULFATE 220 MG CAP PO (09:03)
[2017-09-03] MEDS: TRIAMCINOLONE ACET 0.1% 15 GM CR TOP ×2 (09:05→20:23)
[2017-09-03] MEDS: LIDOCAINE 5% PATCH TD (09:05)
[2017-09-03] MEDS: ZOLPIDEM 5 MG TAB PO (21:20)
[2017-09-04] MEDS: VANCOMYCIN HCL 250 MG/5ML POSYG PO ×5 (00:04→23:21)
[2017-09-04] MEDS: HYDROmorphONE 2 MG TAB PO ×5 (01:48→23:21)
[2017-09-04 06:16] LABS: ADD MAN DIFF? NO
[2017-09-04 06:26] LABS: BASOPHIL # 0.1 10^3/ul (0.0-0.1); BASOPHILS % 1.1 % (0.0-2.0); EOSINOPHILS # 0.4 10^3/ul (0.0-0.5); EOSINOPHILS % 5.4 % (0.0-7.0); HEMATOCRIT 32.4 % (42.0-52.0); HEMOGLOBIN 10.5 g/dl (14.0-18.0); LYMPHOCYTES # 1.7 10^3/ul (0.8-2.9); LYMPHOCYTES % 23.9 % (15.0-51.0); MEAN CORPUSCULAR HEMOGLOBIN 29.7 pg (29.0-33.0); MEAN CORPUSCULAR HGB CONC 32.4 g/dl (32.0-37.0); MEAN CORPUSCULAR VOLUME 91.8 fl (82.0-101.0); MEAN PLATELET VOLUME 8.7 fl (7.4-10.4); MONOCYTE # 0.6 10^3/ul (0.3-0.9); MONOCYTES % 8.5 % (0.0-11.0); NEUTROPHIL # 4.2 10^3/ul (1.6-7.5); PLATELET COUNT 220 10^3/UL (140-415); RED BLOOD COUNT 3.53 10^6/ul (4.70-6.10); RED CELL DISTRIBUTION WIDTH 15.9 % (11.5-14.5)
[2017-09-04 06:57] LABS: ANION GAP 15 (8-16); BLOOD UREA NITROGEN 10 mg/dl (7-20); CALCIUM 8.9 mg/dl (8.4-10.2); CARBON DIOXIDE 21 mmol/L (21-31); CHLORIDE 108 mmol/L (97-110); CREATININE 0.74 mg/dl (0.61-1.24); GLUCOSE 91 mg/dl (70-220); POTASSIUM 4.7 mmol/L (3.5-5.1); SODIUM 139 mmol/L (135-144)
[2017-09-04] MEDS: morphine 4 MG/ML VIAL IV (07:51)
[2017-09-04] MEDS: CITRIC ACID/SODIUM CITRATE 15 ML CUP PO ×2 (08:54→20:03)
[2017-09-04] MEDS: SPIRONOLACTONE 50 MG TAB PO (08:55)
[2017-09-04] MEDS: FOLIC ACID 1 MG TAB PO (08:55)
[2017-09-04] MEDS: FERROUS SULFATE (EC) 325 MG TAB PO ×2 (08:55→20:03)
[2017-09-04] MEDS: DULOXETINE 30 MG CAP DR PO (08:56)
[2017-09-04] MEDS: ZINC SULFATE 220 MG CAP PO (08:56)
[2017-09-04] MEDS: LIDOCAINE 5% PATCH TD (08:59)
[2017-09-04] MEDS: TRIAMCINOLONE ACET 0.1% 15 GM CR TOP ×2 (09:03→20:03)
[2017-09-04] MEDS: ZOLPIDEM 5 MG TAB PO (21:33)
[2017-09-05] MEDS: HYDROmorphONE 2 MG TAB PO ×4 (03:21→23:37)
[2017-09-05] MEDS: VANCOMYCIN HCL 250 MG/5ML POSYG PO ×4 (05:36→23:37)
[2017-09-05] MEDS: morphine 4 MG/ML VIAL IV ×4 (05:37→20:40)
[2017-09-05 05:55] LABS: ADD MAN DIFF? NO
[2017-09-05 06:39] LABS: BASOPHIL # 0.1 10^3/ul (0.0-0.1); BASOPHILS % 0.9 % (0.0-2.0); EOSINOPHILS # 0.5 10^3/ul (0.0-0.5); EOSINOPHILS % 6.5 % (0.0-7.0); HEMATOCRIT 31.3 % (42.0-52.0); HEMOGLOBIN 10.3 g/dl (14.0-18.0); LYMPHOCYTES # 1.8 10^3/ul (0.8-2.9); LYMPHOCYTES % 23.5 % (15.0-51.0); MEAN CORPUSCULAR HEMOGLOBIN 29.8 pg (29.0-33.0); MEAN CORPUSCULAR HGB CONC 32.9 g/dl (32.0-37.0); MEAN CORPUSCULAR VOLUME 90.5 fl (82.0-101.0); MEAN PLATELET VOLUME 8.8 fl (7.4-10.4); MONOCYTE # 0.6 10^3/ul (0.3-0.9); MONOCYTES % 7.1 % (0.0-11.0); NEUTROPHIL # 4.8 10^3/ul (1.6-7.5); NEUTROPHILS % 61.4 % (39.0-77.0); PLATELET COUNT 214 10^3/UL (140-415); RED BLOOD COUNT 3.46 10^6/ul (4.70-6.10); RED CELL DISTRIBUTION WIDTH 15.7 % (11.5-14.5)
[2017-09-05 06:39] LABS: WHITE BLOOD COUNT 7.8 10^3/ul (4.8-10.8)
[2017-09-05 07:14] LABS: ANION GAP 12 (8-16); BLOOD UREA NITROGEN 13 mg/dl (7-20); CARBON DIOXIDE 23 mmol/L (21-31); CHLORIDE 108 mmol/L (97-110); CREATININE 0.77 mg/dl (0.61-1.24); GLUCOSE 96 mg/dl (70-220); POTASSIUM 4.9 mmol/L (3.5-5.1); SODIUM 138 mmol/L (135-144)
[2017-09-05] MEDS: ZINC SULFATE 220 MG CAP PO (08:50)
[2017-09-05] MEDS: FOLIC ACID 1 MG TAB PO (08:50)
[2017-09-05] MEDS: DULOXETINE 30 MG CAP DR PO (08:50)
[2017-09-05] MEDS: FERROUS SULFATE (EC) 325 MG TAB PO ×2 (08:50→20:39)
[2017-09-05] MEDS: SPIRONOLACTONE 50 MG TAB PO (08:50)
[2017-09-05] MEDS: CITRIC ACID/SODIUM CITRATE 15 ML CUP PO ×2 (08:50→20:39)
[2017-09-05] MEDS: LIDOCAINE 5% PATCH TD (08:52)
[2017-09-05] MEDS: TRIAMCINOLONE ACET 0.1% 15 GM CR TOP ×2 (08:52→20:39)
[2017-09-06] MEDS: ZOLPIDEM 5 MG TAB PO ×2 (00:30→21:36)
[2017-09-06] MEDS: VANCOMYCIN HCL 250 MG/5ML POSYG PO ×3 (05:14→17:37)
[2017-09-06] MEDS: morphine 4 MG/ML VIAL IV ×3 (05:15→21:36)
[2017-09-06 06:59] LABS: ANION GAP 11 (8-16); BLOOD UREA NITROGEN 14 mg/dl (7-20); CALCIUM 8.7 mg/dl (8.4-10.2); CARBON DIOXIDE 24 mmol/L (21-31); CHLORIDE 108 mmol/L (97-110); CREATININE 0.86 mg/dl (0.61-1.24); GLUCOSE 81 mg/dl (70-220); POTASSIUM 4.4 mmol/L (3.5-5.1); SODIUM 139 mmol/L (135-144)
[2017-09-06] MEDS: FERROUS SULFATE (EC) 325 MG TAB PO ×2 (08:19→20:01)
[2017-09-06] MEDS: ZINC SULFATE 220 MG CAP PO (08:19)
[2017-09-06] MEDS: CITRIC ACID/SODIUM CITRATE 15 ML CUP PO (08:19)
[2017-09-06] MEDS: DULOXETINE 30 MG CAP DR PO (08:19)
[2017-09-06] MEDS: SPIRONOLACTONE 50 MG TAB PO (08:19)
[2017-09-06] MEDS: FOLIC ACID 1 MG TAB PO (08:19)
[2017-09-06] MEDS: LIDOCAINE 5% PATCH TD (08:23)
[2017-09-06] MEDS: TRIAMCINOLONE ACET 0.1% 15 GM CR TOP ×2 (08:23→20:01)
[2017-09-06] MEDS: HYDROmorphONE 2 MG TAB PO ×2 (08:24→20:01)
[2017-09-07] MEDS: VANCOMYCIN HCL 250 MG/5ML POSYG PO ×5 (00:32→23:55)
[2017-09-07] MEDS: HYDROmorphONE 2 MG TAB PO ×5 (00:32→20:50)
[2017-09-07] MEDS: morphine 4 MG/ML VIAL IV ×2 (03:40→09:57)
[2017-09-07 06:57] LABS: ADD MAN DIFF? NO
[2017-09-07 07:04] LABS: BASOPHIL # 0.1 10^3/ul (0.0-0.1); BASOPHILS % 1.3 % (0.0-2.0); EOSINOPHILS # 0.4 10^3/ul (0.0-0.5); EOSINOPHILS % 6.3 % (0.0-7.0); HEMATOCRIT 30.3 % (42.0-52.0); HEMOGLOBIN 10.1 g/dl (14.0-18.0); LYMPHOCYTES # 1.7 10^3/ul (0.8-2.9); LYMPHOCYTES % 27.1 % (15.0-51.0); MEAN CORPUSCULAR HEMOGLOBIN 30.3 pg (29.0-33.0); MEAN CORPUSCULAR HGB CONC 33.3 g/dl (32.0-37.0); MEAN PLATELET VOLUME 9.1 fl (7.4-10.4); MONOCYTE # 0.5 10^3/ul (0.3-0.9); MONOCYTES % 8.6 % (0.0-11.0); NEUTROPHIL # 3.5 10^3/ul (1.6-7.5); NEUTROPHILS % 56.2 % (39.0-77.0); PLATELET COUNT 178 10^3/UL (140-415); RED BLOOD COUNT 3.33 10^6/ul (4.70-6.10); RED CELL DISTRIBUTION WIDTH 15.6 % (11.5-14.5)
[2017-09-07 07:04] LABS: WHITE BLOOD COUNT 6.2 10^3/ul (4.8-10.8)
[2017-09-07 07:33] LABS: ANION GAP 14 (8-16); BLOOD UREA NITROGEN 15 mg/dl (7-20); CARBON DIOXIDE 22 mmol/L (21-31); CHLORIDE 107 mmol/L (97-110); GLUCOSE 111 mg/dl (70-220); POTASSIUM 4.8 mmol/L (3.5-5.1); SODIUM 138 mmol/L (135-144)
[2017-09-07] MEDS: ZINC SULFATE 220 MG CAP PO (09:38)
[2017-09-07] MEDS: FOLIC ACID 1 MG TAB PO (09:38)
[2017-09-07] MEDS: SPIRONOLACTONE 50 MG TAB PO (09:38)
[2017-09-07] MEDS: FERROUS SULFATE (EC) 325 MG TAB PO ×2 (09:38→20:43)
[2017-09-07] MEDS: DULOXETINE 30 MG CAP DR PO (09:38)
[2017-09-07] MEDS: LIDOCAINE 5% PATCH TD (09:42)
[2017-09-07] MEDS: TRIAMCINOLONE ACET 0.1% 15 GM CR TOP ×2 (09:43→20:44)
[2017-09-07] MEDS ORDERED: BUPIVACAINE 0.5%/EPI 1:200,000 50 ML (MDV) INJ (18:00)
[2017-09-07] MEDS ORDERED: BETAMET NA PHOS/AC(6 MG/ML) 5ML INJ INJ (18:00)
[2017-09-08] MEDS: HYDROmorphONE 2 MG TAB PO ×4 (00:34→22:04)
[2017-09-08] MEDS: ZOLPIDEM 5 MG TAB PO ×2 (01:31→22:36)
[2017-09-08] MEDS: morphine 4 MG/ML VIAL IV ×4 (06:10→23:58)
[2017-09-08] MEDS: VANCOMYCIN HCL 250 MG/5ML POSYG PO ×4 (06:10→23:55)
[2017-09-08] MEDS: ZINC SULFATE 220 MG CAP PO (09:36)
[2017-09-08] MEDS: SPIRONOLACTONE 50 MG TAB PO (09:36)
[2017-09-08] MEDS: FOLIC ACID 1 MG TAB PO (09:36)
[2017-09-08] MEDS: DULOXETINE 30 MG CAP DR PO (09:36)
[2017-09-08] MEDS: FERROUS SULFATE (EC) 325 MG TAB PO ×2 (09:36→20:38)
[2017-09-08] MEDS: TRIAMCINOLONE ACET 0.1% 15 GM CR TOP ×2 (09:39→20:39)
[2017-09-08] MEDS: LIDOCAINE 5% PATCH TD (09:39)
[2017-09-09] MEDS: HYDROmorphONE 2 MG TAB PO ×4 (03:39→21:12)
[2017-09-09] MEDS: VANCOMYCIN HCL 250 MG/5ML POSYG PO ×3 (05:16→17:19)
[2017-09-09] MEDS: morphine 4 MG/ML VIAL IV ×3 (05:16→17:19)
[2017-09-09] MEDS: ZINC SULFATE 220 MG CAP PO (08:28)
[2017-09-09] MEDS: FERROUS SULFATE (EC) 325 MG TAB PO ×2 (08:28→21:13)
[2017-09-09] MEDS: DULOXETINE 30 MG CAP DR PO (08:29)
[2017-09-09] MEDS: SPIRONOLACTONE 50 MG TAB PO (08:29)
[2017-09-09] MEDS: FOLIC ACID 1 MG TAB PO (08:29)
[2017-09-09] MEDS: TRIAMCINOLONE ACET 0.1% 15 GM CR TOP ×2 (08:29→21:12)
[2017-09-09] MEDS: LIDOCAINE 5% PATCH TD (08:33)
[2017-09-09] MEDS: ZOLPIDEM 5 MG TAB PO (21:12)
[2017-09-10] MEDS: VANCOMYCIN HCL 250 MG/5ML POSYG PO ×4 (00:05→17:44)
[2017-09-10] MEDS: morphine 4 MG/ML VIAL IV ×2 (00:12→20:38)
[2017-09-10] MEDS: HYDROmorphONE 2 MG TAB PO ×4 (04:41→22:18)
[2017-09-10 07:27] LABS: ADD MAN DIFF? NO
[2017-09-10 07:34] LABS: BASOPHILS % 0.1 % (0.0-2.0); HEMATOCRIT 32.7 % (42.0-52.0); HEMOGLOBIN 10.1 g/dl (14.0-18.0); LYMPHOCYTES # 1.1 10^3/ul (0.8-2.9); LYMPHOCYTES % 9.3 % (15.0-51.0); MEAN CORPUSCULAR HEMOGLOBIN 29.6 pg (29.0-33.0); MEAN CORPUSCULAR HGB CONC 30.9 g/dl (32.0-37.0); MEAN CORPUSCULAR VOLUME 95.9 fl (82.0-101.0); MEAN PLATELET VOLUME 9.8 fl (7.4-10.4); MONOCYTE # 0.6 10^3/ul (0.3-0.9); MONOCYTES % 4.8 % (0.0-11.0); NEUTROPHIL # 10.4 10^3/ul (1.6-7.5); NEUTROPHILS % 85.4 % (39.0-77.0); PLATELET COUNT 204 10^3/UL (140-415); RED BLOOD COUNT 3.41 10^6/ul (4.70-6.10); RED CELL DISTRIBUTION WIDTH 15.9 % (11.5-14.5)
[2017-09-10 07:34] LABS: WHITE BLOOD COUNT 12.1 10^3/ul (4.8-10.8)
[2017-09-10 08:00] LABS: ANION GAP 13 (8-16); BLOOD UREA NITROGEN 30 mg/dl (7-20); CALCIUM 9.1 mg/dl (8.4-10.2); CARBON DIOXIDE 20 mmol/L (21-31); CHLORIDE 111 mmol/L (97-110); CREATININE 1.15 mg/dl (0.61-1.24); GLUCOSE 137 mg/dl (70-220); POTASSIUM 5.6 mmol/L (3.5-5.1); SODIUM 138 mmol/L (135-144)
[2017-09-10] MEDS: FERROUS SULFATE (EC) 325 MG TAB PO ×2 (09:22→20:37)
[2017-09-10] MEDS: DULOXETINE 30 MG CAP DR PO (09:22)
[2017-09-10] MEDS: ZINC SULFATE 220 MG CAP PO (09:23)
[2017-09-10] MEDS: FOLIC ACID 1 MG TAB PO (09:23)
[2017-09-10] MEDS: SPIRONOLACTONE 50 MG TAB PO (09:23)
[2017-09-10] MEDS: TRIAMCINOLONE ACET 0.1% 15 GM CR TOP ×2 (09:24→20:37)
[2017-09-10] MEDS: LIDOCAINE 5% PATCH TD (09:28)
[2017-09-10] MEDS: NA POLYST SULFON 15 GM/60 ML BTL PO ×3 (13:44→17:45)
[2017-09-10] MEDS: ZOLPIDEM 5 MG TAB PO (22:18)
[2017-09-11] MEDS: VANCOMYCIN HCL 250 MG/5ML POSYG PO ×4 (01:07→18:34)
[2017-09-11] MEDS: morphine 4 MG/ML VIAL IV ×5 (01:08→21:30)
[2017-09-11] MEDS: HYDROmorphONE 2 MG TAB PO ×3 (04:18→20:14)
[2017-09-11 06:24] LABS: ADD MAN DIFF? NO
[2017-09-11 06:29] LABS: EOSINOPHILS % 0.1 % (0.0-7.0); HEMOGLOBIN 9.8 g/dl (14.0-18.0); LYMPHOCYTES # 1.4 10^3/ul (0.8-2.9); LYMPHOCYTES % 14.6 % (15.0-51.0); MEAN CORPUSCULAR HEMOGLOBIN 30.6 pg (29.0-33.0); MEAN CORPUSCULAR HGB CONC 32.7 g/dl (32.0-37.0); MEAN CORPUSCULAR VOLUME 93.8 fl (82.0-101.0); MONOCYTE # 0.9 10^3/ul (0.3-0.9); MONOCYTES % 9.3 % (0.0-11.0); NEUTROPHIL # 7.1 10^3/ul (1.6-7.5); NEUTROPHILS % 75.4 % (39.0-77.0); PLATELET COUNT 174 10^3/UL (140-415); RED CELL DISTRIBUTION WIDTH 16.1 % (11.5-14.5)
[2017-09-11 06:29] LABS: WHITE BLOOD COUNT 9.4 10^3/ul (4.8-10.8)
[2017-09-11] MEDS: ZINC SULFATE 220 MG CAP PO (08:22)
[2017-09-11] MEDS: DULOXETINE 30 MG CAP DR PO (08:22)
[2017-09-11] MEDS: FERROUS SULFATE (EC) 325 MG TAB PO ×2 (08:22→20:14)
[2017-09-11] MEDS: FOLIC ACID 1 MG TAB PO (08:22)
[2017-09-11] MEDS: LIDOCAINE 5% PATCH TD (08:23)
[2017-09-11 08:45] LABS: ANION GAP 14 (8-16); BLOOD UREA NITROGEN 24 mg/dl (7-20); CALCIUM 8.9 mg/dl (8.4-10.2); CARBON DIOXIDE 18 mmol/L (21-31); CHLORIDE 111 mmol/L (97-110); CREATININE 0.87 mg/dl (0.61-1.24); GLUCOSE 132 mg/dl (70-220); POTASSIUM 3.8 mmol/L (3.5-5.1); SODIUM 139 mmol/L (135-144)
[2017-09-11] MEDS: TRIAMCINOLONE ACET 0.1% 15 GM CR TOP ×2 (18:33→20:14)
[2017-09-11] MEDS: ZOLPIDEM 5 MG TAB PO (21:30)
[2017-09-12] MEDS: VANCOMYCIN HCL 250 MG/5ML POSYG PO ×3 (01:04→12:46)
[2017-09-12] MEDS: HYDROmorphONE 2 MG TAB PO ×4 (01:04→20:10)
[2017-09-12] MEDS: morphine 4 MG/ML VIAL IV ×4 (04:54→22:17)
[2017-09-12] MEDS: FOLIC ACID 1 MG TAB PO (09:31)
[2017-09-12] MEDS: DULOXETINE 30 MG CAP DR PO (09:31)
[2017-09-12] MEDS: FERROUS SULFATE (EC) 325 MG TAB PO ×2 (09:31→22:17)
[2017-09-12] MEDS: ZINC SULFATE 220 MG CAP PO (09:31)
[2017-09-12] MEDS: LIDOCAINE 5% PATCH TD (09:32)
[2017-09-12] MEDS: TRIAMCINOLONE ACET 0.1% 15 GM CR TOP ×2 (09:32→20:11)
[2017-09-12] MEDS: ZOLPIDEM 5 MG TAB PO (22:18)
[2017-09-13] MEDS: HYDROmorphONE 2 MG TAB PO ×3 (03:17→21:02)
[2017-09-13] MEDS: morphine 4 MG/ML VIAL IV ×4 (05:26→18:35)
[2017-09-13] MEDS: ZINC SULFATE 220 MG CAP PO (09:15)
[2017-09-13] MEDS: DULOXETINE 30 MG CAP DR PO (09:15)
[2017-09-13] MEDS: FERROUS SULFATE (EC) 325 MG TAB PO ×2 (09:16→21:02)
[2017-09-13] MEDS: TRIAMCINOLONE ACET 0.1% 15 GM CR TOP ×2 (09:16→21:03)
[2017-09-13] MEDS: FOLIC ACID 1 MG TAB PO (09:16)
[2017-09-13] MEDS: LIDOCAINE 5% PATCH TD (09:18)
[2017-09-13] MEDS ORDERED: BETAMET NA PHOS/AC(6 MG/ML) 5ML INJ INJ (19:30)
[2017-09-13] MEDS ORDERED: BUPIVACAINE 0.5%/EPI (SDV) 30 ML INJ INJ (19:30)
[2017-09-13] MEDS ORDERED: BUPIVACAINE 0.5%/EPI 1:200,000 50 ML (MDV) INJ (20:30)
[2017-09-13] MEDS: ZOLPIDEM 5 MG TAB PO (21:02)
[2017-09-14] MEDS: morphine 4 MG/ML VIAL IV ×3 (01:38→15:10)
[2017-09-14] MEDS: HYDROmorphONE 2 MG TAB PO ×3 (04:34→20:35)
[2017-09-14 06:23] LABS: ADD MAN DIFF? NO
[2017-09-14 06:27] LABS: BASOPHILS % 0.2 % (0.0-2.0); EOSINOPHILS # 0.2 10^3/ul (0.0-0.5); EOSINOPHILS % 1.8 % (0.0-7.0); HEMATOCRIT 28.9 % (42.0-52.0); HEMOGLOBIN 9.4 g/dl (14.0-18.0); LYMPHOCYTES # 1.4 10^3/ul (0.8-2.9); LYMPHOCYTES % 15.5 % (15.0-51.0); MEAN CORPUSCULAR HEMOGLOBIN 30.3 pg (29.0-33.0); MEAN CORPUSCULAR HGB CONC 32.5 g/dl (32.0-37.0); MEAN CORPUSCULAR VOLUME 93.2 fl (82.0-101.0); MEAN PLATELET VOLUME 10.5 fl (7.4-10.4); MONOCYTE # 1.3 10^3/ul (0.3-0.9); MONOCYTES % 14.8 % (0.0-11.0); NEUTROPHIL # 6.1 10^3/ul (1.6-7.5); NEUTROPHILS % 66.9 % (39.0-77.0); PLATELET COUNT 139 10^3/UL (140-415); RED CELL DISTRIBUTION WIDTH 16.6 % (11.5-14.5)
[2017-09-14 06:27] LABS: WHITE BLOOD COUNT 9.1 10^3/ul (4.8-10.8)
[2017-09-14 06:56] LABS: ANION GAP 11 (8-16); BLOOD UREA NITROGEN 22 mg/dl (7-20); CALCIUM 8.7 mg/dl (8.4-10.2); CARBON DIOXIDE 22 mmol/L (21-31); CHLORIDE 111 mmol/L (97-110); CREATININE 0.97 mg/dl (0.61-1.24); GLUCOSE 104 mg/dl (70-220); SODIUM 140 mmol/L (135-144)
[2017-09-14] MEDS: ZINC SULFATE 220 MG CAP PO (08:39)
[2017-09-14] MEDS: FERROUS SULFATE (EC) 325 MG TAB PO ×2 (08:39→20:35)
[2017-09-14] MEDS: DULOXETINE 30 MG CAP DR PO (08:39)
[2017-09-14] MEDS: FOLIC ACID 1 MG TAB PO (08:39)
[2017-09-14] MEDS: LIDOCAINE 5% PATCH TD (08:40)
[2017-09-14] MEDS: TRIAMCINOLONE ACET 0.1% 15 GM CR TOP ×2 (08:40→20:36)
[2017-09-14] MEDS: ZOLPIDEM 5 MG TAB PO (20:35)
[2017-09-15] MEDS: morphine 4 MG/ML VIAL IV ×5 (00:39→20:16)
[2017-09-15] MEDS: HYDROmorphONE 2 MG TAB PO ×4 (02:41→22:46)
[2017-09-15 06:19] LABS: ADD MAN DIFF? NO
[2017-09-15 06:34] LABS: BASOPHILS % 0.2 % (0.0-2.0); EOSINOPHILS # 0.2 10^3/ul (0.0-0.5); EOSINOPHILS % 2.5 % (0.0-7.0); HEMATOCRIT 30.6 % (42.0-52.0); HEMOGLOBIN 9.6 g/dl (14.0-18.0); LYMPHOCYTES # 1.2 10^3/ul (0.8-2.9); LYMPHOCYTES % 18.7 % (15.0-51.0); MEAN CORPUSCULAR HGB CONC 31.4 g/dl (32.0-37.0); MEAN CORPUSCULAR VOLUME 95.6 fl (82.0-101.0); MEAN PLATELET VOLUME 10.7 fl (7.4-10.4); MONOCYTE # 0.9 10^3/ul (0.3-0.9); MONOCYTES % 14.3 % (0.0-11.0); NEUTROPHIL # 4.1 10^3/ul (1.6-7.5); NEUTROPHILS % 63.5 % (39.0-77.0); PLATELET COUNT 141 10^3/UL (140-415)
[2017-09-15 06:34] LABS: WHITE BLOOD COUNT 6.5 10^3/ul (4.8-10.8)
[2017-09-15 07:08] LABS: ANION GAP 12 (8-16); BLOOD UREA NITROGEN 24 mg/dl (7-20); CALCIUM 8.5 mg/dl (8.4-10.2); CARBON DIOXIDE 21 mmol/L (21-31); CHLORIDE 110 mmol/L (97-110); GLUCOSE 125 mg/dl (70-220); POTASSIUM 3.8 mmol/L (3.5-5.1); SODIUM 139 mmol/L (135-144)
[2017-09-15] MEDS: FERROUS SULFATE (EC) 325 MG TAB PO ×2 (08:55→20:14)
[2017-09-15] MEDS: ZINC SULFATE 220 MG CAP PO (08:55)
[2017-09-15] MEDS: SPIRONOLACTONE 25 MG TAB PO (08:55)
[2017-09-15] MEDS: FOLIC ACID 1 MG TAB PO (08:55)
[2017-09-15] MEDS: DULOXETINE 30 MG CAP DR PO (08:55)
[2017-09-15] MEDS: LIDOCAINE 5% PATCH TD (08:56)
[2017-09-15] MEDS: TRIAMCINOLONE ACET 0.1% 15 GM CR TOP ×2 (09:02→20:14)
[2017-09-15] MEDS: ZOLPIDEM 5 MG TAB PO (21:17)
[2017-09-16] MEDS: morphine 4 MG/ML VIAL IV ×3 (00:03→11:23)
[2017-09-16] MEDS: HYDROmorphONE 2 MG TAB PO ×5 (03:20→22:48)
[2017-09-16 07:03] LABS: ADD MAN DIFF? NO
[2017-09-16 07:11] LABS: WHITE BLOOD COUNT 7.6 10^3/ul (4.8-10.8)
[2017-09-16 07:11] LABS: BASOPHILS % 0.4 % (0.0-2.0); EOSINOPHILS # 0.3 10^3/ul (0.0-0.5); EOSINOPHILS % 3.4 % (0.0-7.0); HEMATOCRIT 30.4 % (42.0-52.0); HEMOGLOBIN 9.7 g/dl (14.0-18.0); LYMPHOCYTES # 1.3 10^3/ul (0.8-2.9); LYMPHOCYTES % 16.4 % (15.0-51.0); MEAN CORPUSCULAR HEMOGLOBIN 30.9 pg (29.0-33.0); MEAN CORPUSCULAR HGB CONC 31.9 g/dl (32.0-37.0); MEAN CORPUSCULAR VOLUME 96.8 fl (82.0-101.0); MONOCYTES % 12.5 % (0.0-11.0); NEUTROPHIL # 5.1 10^3/ul (1.6-7.5); NEUTROPHILS % 66.6 % (39.0-77.0); PLATELET COUNT 160 10^3/UL (140-415); RED BLOOD COUNT 3.14 10^6/ul (4.70-6.10); RED CELL DISTRIBUTION WIDTH 17.8 % (11.5-14.5)
[2017-09-16 07:59] LABS: ANION GAP 13 (8-16); BLOOD UREA NITROGEN 24 mg/dl (7-20); CALCIUM 8.6 mg/dl (8.4-10.2); CARBON DIOXIDE 22 mmol/L (21-31); CHLORIDE 111 mmol/L (97-110); CREATININE 0.92 mg/dl (0.61-1.24); GLUCOSE 118 mg/dl (70-220); POTASSIUM 4.1 mmol/L (3.5-5.1); SODIUM 142 mmol/L (135-144)
[2017-09-16] MEDS: ZINC SULFATE 220 MG CAP PO (08:07)
[2017-09-16] MEDS: FERROUS SULFATE (EC) 325 MG TAB PO ×2 (08:07→21:29)
[2017-09-16] MEDS: DULOXETINE 30 MG CAP DR PO (08:07)
[2017-09-16] MEDS: FOLIC ACID 1 MG TAB PO (08:07)
[2017-09-16] MEDS: SPIRONOLACTONE 25 MG TAB PO (08:07)
[2017-09-16] MEDS: TRIAMCINOLONE ACET 0.1% 15 GM CR TOP ×2 (08:08→21:28)
[2017-09-16] MEDS: LIDOCAINE 5% PATCH TD (09:31)
[2017-09-16] MEDS: ZOLPIDEM 5 MG TAB PO (21:29)
[2017-09-17] MEDS: HYDROmorphONE 2 MG TAB PO ×6 (02:37→23:31)
[2017-09-17 06:03] LABS: ADD MAN DIFF? NO
[2017-09-17 06:09] LABS: WHITE BLOOD COUNT 6.9 10^3/ul (4.8-10.8)
[2017-09-17 06:09] LABS: BASOPHILS % 0.6 % (0.0-2.0); EOSINOPHILS # 0.2 10^3/ul (0.0-0.5); HEMATOCRIT 30.9 % (42.0-52.0); HEMOGLOBIN 9.8 g/dl (14.0-18.0); LYMPHOCYTES # 1.3 10^3/ul (0.8-2.9); LYMPHOCYTES % 19.2 % (15.0-51.0); MEAN CORPUSCULAR HEMOGLOBIN 30.3 pg (29.0-33.0); MEAN CORPUSCULAR HGB CONC 31.7 g/dl (32.0-37.0); MEAN CORPUSCULAR VOLUME 95.7 fl (82.0-101.0); MEAN PLATELET VOLUME 10.6 fl (7.4-10.4); MONOCYTE # 1.1 10^3/ul (0.3-0.9); MONOCYTES % 15.2 % (0.0-11.0); NEUTROPHIL # 4.2 10^3/ul (1.6-7.5); NEUTROPHILS % 61.3 % (39.0-77.0); PLATELET COUNT 157 10^3/UL (140-415); RED BLOOD COUNT 3.23 10^6/ul (4.70-6.10); RED CELL DISTRIBUTION WIDTH 17.9 % (11.5-14.5)
[2017-09-17 07:33] LABS: ANION GAP 14 (8-16); BLOOD UREA NITROGEN 24 mg/dl (7-20); CARBON DIOXIDE 23 mmol/L (21-31); CHLORIDE 109 mmol/L (97-110); CREATININE 0.77 mg/dl (0.61-1.24); GLUCOSE 99 mg/dl (70-220); POTASSIUM 4.4 mmol/L (3.5-5.1); SODIUM 142 mmol/L (135-144)
[2017-09-17] MEDS: SPIRONOLACTONE 25 MG TAB PO (09:23)
[2017-09-17] MEDS: DULOXETINE 30 MG CAP DR PO (09:24)
[2017-09-17] MEDS: LIDOCAINE 5% PATCH TD (09:24)
[2017-09-17] MEDS: FOLIC ACID 1 MG TAB PO (09:24)
[2017-09-17] MEDS: ZINC SULFATE 220 MG CAP PO (09:24)
[2017-09-17] MEDS: FERROUS SULFATE (EC) 325 MG TAB PO ×2 (09:24→20:17)
[2017-09-17] MEDS: TRIAMCINOLONE ACET 0.1% 15 GM CR TOP ×3 (09:26→20:17)
[2017-09-17] MEDS: ZOLPIDEM 5 MG TAB PO (20:17)
[2017-09-18] MEDS: HYDROmorphONE 2 MG TAB PO ×5 (03:31→21:05)
[2017-09-18 06:32] LABS: ADD MAN DIFF? NO
[2017-09-18 06:46] LABS: WHITE BLOOD COUNT 7.8 10^3/ul (4.8-10.8)
[2017-09-18 06:46] LABS: BASOPHILS % 0.5 % (0.0-2.0); EOSINOPHILS # 0.3 10^3/ul (0.0-0.5); EOSINOPHILS % 3.3 % (0.0-7.0); HEMATOCRIT 31.5 % (42.0-52.0); HEMOGLOBIN 10.2 g/dl (14.0-18.0); LYMPHOCYTES # 1.4 10^3/ul (0.8-2.9); LYMPHOCYTES % 18.4 % (15.0-51.0); MEAN CORPUSCULAR HEMOGLOBIN 31.2 pg (29.0-33.0); MEAN CORPUSCULAR HGB CONC 32.4 g/dl (32.0-37.0); MEAN CORPUSCULAR VOLUME 96.3 fl (82.0-101.0); NEUTROPHILS % 64.3 % (39.0-77.0); PLATELET COUNT 157 10^3/UL (140-415); RED BLOOD COUNT 3.27 10^6/ul (4.70-6.10); RED CELL DISTRIBUTION WIDTH 18.1 % (11.5-14.5)
[2017-09-18 07:26] LABS: ANION GAP 16 (8-16); BLOOD UREA NITROGEN 25 mg/dl (7-20); CALCIUM 9.1 mg/dl (8.4-10.2); CARBON DIOXIDE 24 mmol/L (21-31); CHLORIDE 107 mmol/L (97-110); CREATININE 0.77 mg/dl (0.61-1.24); GLUCOSE 95 mg/dl (70-220); POTASSIUM 4.5 mmol/L (3.5-5.1); SODIUM 142 mmol/L (135-144)
[2017-09-18] MEDS: DULOXETINE 30 MG CAP DR PO (08:43)
[2017-09-18] MEDS: SPIRONOLACTONE 25 MG TAB PO (08:43)
[2017-09-18] MEDS: TRIAMCINOLONE ACET 0.1% 15 GM CR TOP ×2 (08:44→21:07)
[2017-09-18] MEDS: FERROUS SULFATE (EC) 325 MG TAB PO ×2 (08:44→21:06)
[2017-09-18] MEDS: ZINC SULFATE 220 MG CAP PO (08:44)
[2017-09-18] MEDS: FOLIC ACID 1 MG TAB PO (08:44)
[2017-09-18] MEDS: LIDOCAINE 5% PATCH TD (08:44)
[2017-09-18] MEDS: ZOLPIDEM 5 MG TAB PO (23:23)
[2017-09-19] MEDS: HYDROmorphONE 2 MG TAB PO ×6 (01:10→21:25)
[2017-09-19 06:34] LABS: ADD MAN DIFF? NO
[2017-09-19 06:54] LABS: WHITE BLOOD COUNT 6.6 10^3/ul (4.8-10.8)
[2017-09-19 06:54] LABS: BASOPHIL # 0.1 10^3/ul (0.0-0.1); BASOPHILS % 0.8 % (0.0-2.0); EOSINOPHILS # 0.4 10^3/ul (0.0-0.5); EOSINOPHILS % 6.4 % (0.0-7.0); HEMATOCRIT 32.2 % (42.0-52.0); HEMOGLOBIN 10.2 g/dl (14.0-18.0); LYMPHOCYTES # 1.3 10^3/ul (0.8-2.9); LYMPHOCYTES % 19.7 % (15.0-51.0); MEAN CORPUSCULAR HEMOGLOBIN 30.9 pg (29.0-33.0); MEAN CORPUSCULAR HGB CONC 31.7 g/dl (32.0-37.0); MEAN CORPUSCULAR VOLUME 97.6 fl (82.0-101.0); NEUTROPHIL # 3.8 10^3/ul (1.6-7.5); NEUTROPHILS % 57.6 % (39.0-77.0); PLATELET COUNT 163 10^3/UL (140-415); RED CELL DISTRIBUTION WIDTH 18.5 % (11.5-14.5)
[2017-09-19 07:07] LABS: ANION GAP 14 (8-16); BLOOD UREA NITROGEN 28 mg/dl (7-20); CALCIUM 9.3 mg/dl (8.4-10.2); CARBON DIOXIDE 26 mmol/L (21-31); CHLORIDE 108 mmol/L (97-110); CREATININE 0.95 mg/dl (0.61-1.24); GLUCOSE 82 mg/dl (70-220); POTASSIUM 4.8 mmol/L (3.5-5.1); SODIUM 143 mmol/L (135-144)
[2017-09-19 07:18] LABS: MONOCYTES % 15.2 % (0.0-11.0)
[2017-09-19] MEDS: SPIRONOLACTONE 25 MG TAB PO (09:07)
[2017-09-19] MEDS: DULOXETINE 30 MG CAP DR PO (09:07)
[2017-09-19] MEDS: FERROUS SULFATE (EC) 325 MG TAB PO ×2 (09:07→21:25)
[2017-09-19] MEDS: TRIAMCINOLONE ACET 0.1% 15 GM CR TOP ×2 (09:08→21:25)
[2017-09-19] MEDS: ZINC SULFATE 220 MG CAP PO (09:08)
[2017-09-19] MEDS: LIDOCAINE 5% PATCH TD (09:08)
[2017-09-19] MEDS: FOLIC ACID 1 MG TAB PO (09:08)
[2017-09-19] MEDS: ZOLPIDEM 5 MG TAB PO (21:25)
[2017-09-20] MEDS: HYDROmorphONE 2 MG TAB PO ×6 (01:38→21:34)
[2017-09-20] MEDS: SPIRONOLACTONE 25 MG TAB PO (08:30)
[2017-09-20] MEDS: TRIAMCINOLONE ACET 0.1% 15 GM CR TOP ×2 (08:30→21:34)
[2017-09-20] MEDS: FERROUS SULFATE (EC) 325 MG TAB PO ×2 (08:30→21:33)
[2017-09-20] MEDS: FOLIC ACID 1 MG TAB PO (08:30)
[2017-09-20] MEDS: ZINC SULFATE 220 MG CAP PO (08:30)
[2017-09-20] MEDS: DULOXETINE 30 MG CAP DR PO (08:30)
[2017-09-20] MEDS: LIDOCAINE 5% PATCH TD (08:31)
[2017-09-20] MEDS: ZOLPIDEM 5 MG TAB PO (21:35)
[2017-09-21] MEDS: HYDROmorphONE 2 MG TAB PO ×6 (01:25→21:42)
[2017-09-21] MEDS: FERROUS SULFATE (EC) 325 MG TAB PO ×2 (09:02→21:41)
[2017-09-21] MEDS: ZINC SULFATE 220 MG CAP PO (09:03)
[2017-09-21] MEDS: SPIRONOLACTONE 25 MG TAB PO (09:03)
[2017-09-21] MEDS: DULOXETINE 30 MG CAP DR PO (09:03)
[2017-09-21] MEDS: FOLIC ACID 1 MG TAB PO (09:03)
[2017-09-21] MEDS: LIDOCAINE 5% PATCH TD (09:07)
[2017-09-21] MEDS: TRIAMCINOLONE ACET 0.1% 15 GM CR TOP ×2 (09:08→21:43)
[2017-09-21] MEDS: ZOLPIDEM 5 MG TAB PO (21:41)
[2017-09-22] MEDS: HYDROmorphONE 2 MG TAB PO ×4 (01:58→18:17)
[2017-09-22 06:03] LABS: ADD MAN DIFF? NO
[2017-09-22 06:11] LABS: WHITE BLOOD COUNT 8.1 10^3/ul (4.8-10.8)
[2017-09-22 06:11] LABS: BASOPHIL # 0.1 10^3/ul (0.0-0.1); EOSINOPHILS # 0.5 10^3/ul (0.0-0.5); EOSINOPHILS % 5.7 % (0.0-7.0); HEMATOCRIT 30.9 % (42.0-52.0); LYMPHOCYTES # 1.4 10^3/ul (0.8-2.9); LYMPHOCYTES % 17.2 % (15.0-51.0); MEAN CORPUSCULAR HEMOGLOBIN 31.4 pg (29.0-33.0); MEAN CORPUSCULAR HGB CONC 32.4 g/dl (32.0-37.0); MEAN CORPUSCULAR VOLUME 97.2 fl (82.0-101.0); MEAN PLATELET VOLUME 10.7 fl (7.4-10.4); MONOCYTE # 0.9 10^3/ul (0.3-0.9); MONOCYTES % 11.6 % (0.0-11.0); NEUTROPHIL # 5.2 10^3/ul (1.6-7.5); PLATELET COUNT 137 10^3/UL (140-415); RED BLOOD COUNT 3.18 10^6/ul (4.70-6.10); RED CELL DISTRIBUTION WIDTH 18.5 % (11.5-14.5)
[2017-09-22 06:47] LABS: ANION GAP 14 (8-16); BLOOD UREA NITROGEN 26 mg/dl (7-20); CALCIUM 9.1 mg/dl (8.4-10.2); CARBON DIOXIDE 24 mmol/L (21-31); CHLORIDE 110 mmol/L (97-110); CREATININE 1.03 mg/dl (0.61-1.24); GLUCOSE 99 mg/dl (70-220); POTASSIUM 4.7 mmol/L (3.5-5.1); SODIUM 143 mmol/L (135-144)
[2017-09-22] MEDS: DULOXETINE 30 MG CAP DR PO (09:54)
[2017-09-22] MEDS: TRIAMCINOLONE ACET 0.1% 15 GM CR TOP ×2 (09:54→21:38)
[2017-09-22] MEDS: FERROUS SULFATE (EC) 325 MG TAB PO ×2 (09:55→21:38)
[2017-09-22] MEDS: SPIRONOLACTONE 25 MG TAB PO (09:55)
[2017-09-22] MEDS: ZINC SULFATE 220 MG CAP PO (09:55)
[2017-09-22] MEDS: FOLIC ACID 1 MG TAB PO (09:55)
[2017-09-22] MEDS: LIDOCAINE 5% PATCH TD (09:57)
[2017-09-22] MEDS: ZOLPIDEM 5 MG TAB PO (21:38)
[2017-09-23] MEDS: HYDROmorphONE 2 MG TAB PO ×5 (01:10→21:24)
[2017-09-23] MEDS: FERROUS SULFATE (EC) 325 MG TAB PO ×2 (09:43→21:23)
[2017-09-23] MEDS: LIDOCAINE 5% PATCH TD (09:43)
[2017-09-23] MEDS: FOLIC ACID 1 MG TAB PO (09:44)
[2017-09-23] MEDS: SPIRONOLACTONE 25 MG TAB PO (09:44)
[2017-09-23] MEDS: DULOXETINE 30 MG CAP DR PO (09:44)
[2017-09-23] MEDS: ZINC SULFATE 220 MG CAP PO (09:44)
[2017-09-23] MEDS: TRIAMCINOLONE ACET 0.1% 15 GM CR TOP ×2 (09:45→21:23)
[2017-09-23] MEDS: ZOLPIDEM 5 MG TAB PO (23:21)
[2017-09-24] MEDS: HYDROmorphONE 2 MG TAB PO ×5 (04:43→21:48)
[2017-09-24] MEDS: FERROUS SULFATE (EC) 325 MG TAB PO ×2 (09:00→21:48)
[2017-09-24] MEDS: ZINC SULFATE 220 MG CAP PO (09:00)
[2017-09-24] MEDS: FOLIC ACID 1 MG TAB PO (09:00)
[2017-09-24] MEDS: SPIRONOLACTONE 25 MG TAB PO (09:00)
[2017-09-24] MEDS: LIDOCAINE 5% PATCH TD (09:00)
[2017-09-24] MEDS: DULOXETINE 30 MG CAP DR PO (09:00)
[2017-09-24] MEDS: TRIAMCINOLONE ACET 0.1% 15 GM CR TOP ×2 (09:01→21:47)
[2017-09-24] MEDS: ZOLPIDEM 5 MG TAB PO (21:47)
[2017-09-25] MEDS: HYDROmorphONE 2 MG TAB PO ×5 (02:27→20:15)
[2017-09-25] MEDS: TRIAMCINOLONE ACET 0.1% 15 GM CR TOP ×2 (08:19→20:15)
[2017-09-25] MEDS: DULOXETINE 30 MG CAP DR PO (08:19)
[2017-09-25] MEDS: ZINC SULFATE 220 MG CAP PO (08:19)
[2017-09-25] MEDS: FOLIC ACID 1 MG TAB PO (08:19)
[2017-09-25] MEDS: FERROUS SULFATE (EC) 325 MG TAB PO ×2 (08:19→20:15)
[2017-09-25] MEDS: LIDOCAINE 5% PATCH TD (08:19)
[2017-09-25] MEDS: SPIRONOLACTONE 25 MG TAB PO (08:19)
[2017-09-26] MEDS: HYDROmorphONE 2 MG TAB PO ×5 (00:01→20:41)
[2017-09-26] MEDS: ZOLPIDEM 5 MG TAB PO ×2 (00:02→20:43)
[2017-09-26] MEDS: FOLIC ACID 1 MG TAB PO (08:16)
[2017-09-26] MEDS: ZINC SULFATE 220 MG CAP PO (08:16)
[2017-09-26] MEDS: FERROUS SULFATE (EC) 325 MG TAB PO ×2 (08:16→20:40)
[2017-09-26] MEDS: TRIAMCINOLONE ACET 0.1% 15 GM CR TOP ×2 (08:16→20:43)
[2017-09-26] MEDS: SPIRONOLACTONE 25 MG TAB PO (08:16)
[2017-09-26] MEDS: LIDOCAINE 5% PATCH TD (08:16)
[2017-09-26] MEDS: DULOXETINE 30 MG CAP DR PO (08:16)
[2017-09-27] MEDS: HYDROmorphONE 2 MG TAB PO ×5 (01:43→20:06)
[2017-09-27 06:00] LABS: ADD MAN DIFF? NO
[2017-09-27 06:13] LABS: BASOPHIL # 0.1 10^3/ul (0.0-0.1); EOSINOPHILS # 0.4 10^3/ul (0.0-0.5); HEMATOCRIT 32.2 % (42.0-52.0); HEMOGLOBIN 10.5 g/dl (14.0-18.0); LYMPHOCYTES # 1.3 10^3/ul (0.8-2.9); LYMPHOCYTES % 21.4 % (15.0-51.0); MEAN CORPUSCULAR HEMOGLOBIN 31.6 pg (29.0-33.0); MEAN CORPUSCULAR HGB CONC 32.6 g/dl (32.0-37.0); MEAN PLATELET VOLUME 10.5 fl (7.4-10.4); MONOCYTE # 0.8 10^3/ul (0.3-0.9); MONOCYTES % 13.3 % (0.0-11.0); NEUTROPHIL # 3.4 10^3/ul (1.6-7.5); PLATELET COUNT 110 10^3/UL (140-415); RED BLOOD COUNT 3.32 10^6/ul (4.70-6.10); RED CELL DISTRIBUTION WIDTH 18.2 % (11.5-14.5)
[2017-09-27 07:01] LABS: ANION GAP 12 (8-16); BLOOD UREA NITROGEN 25 mg/dl (7-20); CALCIUM 9.6 mg/dl (8.4-10.2); CARBON DIOXIDE 26 mmol/L (21-31); CHLORIDE 107 mmol/L (97-110); CREATININE 0.85 mg/dl (0.61-1.24); GLUCOSE 99 mg/dl (70-220); POTASSIUM 5.3 mmol/L (3.5-5.1); SODIUM 140 mmol/L (135-144)
[2017-09-27] MEDS: SPIRONOLACTONE 25 MG TAB PO (08:37)
[2017-09-27] MEDS: FERROUS SULFATE (EC) 325 MG TAB PO ×2 (08:37→20:06)
[2017-09-27] MEDS: DULOXETINE 30 MG CAP DR PO (08:37)
[2017-09-27] MEDS: FOLIC ACID 1 MG TAB PO (08:38)
[2017-09-27] MEDS: ZINC SULFATE 220 MG CAP PO (08:38)
[2017-09-27] MEDS: TRIAMCINOLONE ACET 0.1% 15 GM CR TOP ×2 (08:39→20:07)
[2017-09-27] MEDS: LIDOCAINE 5% PATCH TD (08:39)
[2017-09-27] MEDS: ZOLPIDEM 5 MG TAB PO (21:21)
[2017-09-28] MEDS: HYDROmorphONE 2 MG TAB PO ×4 (05:59→20:13)
[2017-09-28 06:52] LABS: ANION GAP 13 (8-16); BLOOD UREA NITROGEN 25 mg/dl (7-20); CARBON DIOXIDE 24 mmol/L (21-31); CHLORIDE 109 mmol/L (97-110); CREATININE 0.86 mg/dl (0.61-1.24); GLUCOSE 128 mg/dl (70-220); POTASSIUM 4.6 mmol/L (3.5-5.1); SODIUM 141 mmol/L (135-144)
[2017-09-28] MEDS: DULOXETINE 30 MG CAP DR PO (09:07)
[2017-09-28] MEDS: ZINC SULFATE 220 MG CAP PO (09:07)
[2017-09-28] MEDS: FERROUS SULFATE (EC) 325 MG TAB PO ×2 (09:07→20:14)
[2017-09-28] MEDS: FOLIC ACID 1 MG TAB PO (09:07)
[2017-09-28] MEDS: LIDOCAINE 5% PATCH TD (09:08)
[2017-09-28] MEDS: TRIAMCINOLONE ACET 0.1% 15 GM CR TOP ×2 (09:09→20:15)
[2017-09-28] MEDS: ZOLPIDEM 5 MG TAB PO (20:14)
[2017-09-29] MEDS: HYDROmorphONE 2 MG TAB PO ×3 (04:37→21:32)
[2017-09-29 05:58] LABS: ADD MAN DIFF? NO
[2017-09-29 05:59] LABS: BASOPHIL # 0.1 10^3/ul (0.0-0.1); BASOPHILS % 1.1 % (0.0-2.0); EOSINOPHILS # 0.3 10^3/ul (0.0-0.5); EOSINOPHILS % 6.6 % (0.0-7.0); HEMATOCRIT 32.4 % (42.0-52.0); HEMOGLOBIN 10.5 g/dl (14.0-18.0); LYMPHOCYTES # 1.1 10^3/ul (0.8-2.9); LYMPHOCYTES % 24.4 % (15.0-51.0); MEAN CORPUSCULAR HEMOGLOBIN 31.7 pg (29.0-33.0); MEAN CORPUSCULAR HGB CONC 32.4 g/dl (32.0-37.0); MEAN CORPUSCULAR VOLUME 97.9 fl (82.0-101.0); MEAN PLATELET VOLUME 10.6 fl (7.4-10.4); MONOCYTE # 0.4 10^3/ul (0.3-0.9); MONOCYTES % 9.4 % (0.0-11.0); NEUTROPHIL # 2.7 10^3/ul (1.6-7.5); NEUTROPHILS % 58.1 % (39.0-77.0); PLATELET COUNT 108 10^3/UL (140-415); RED BLOOD COUNT 3.31 10^6/ul (4.70-6.10); RED CELL DISTRIBUTION WIDTH 17.9 % (11.5-14.5)
[2017-09-29 05:59] LABS: WHITE BLOOD COUNT 4.7 10^3/ul (4.8-10.8)
[2017-09-29 06:34] LABS: ANION GAP 12 (8-16); BLOOD UREA NITROGEN 23 mg/dl (7-20); CALCIUM 9.4 mg/dl (8.4-10.2); CARBON DIOXIDE 23 mmol/L (21-31); CHLORIDE 110 mmol/L (97-110); CREATININE 0.95 mg/dl (0.61-1.24); GLUCOSE 164 mg/dl (70-220); SODIUM 141 mmol/L (135-144)
[2017-09-29] MEDS: LIDOCAINE 5% PATCH TD (08:00)
[2017-09-29] MEDS: DULOXETINE 30 MG CAP DR PO (08:00)
[2017-09-29] MEDS: ZINC SULFATE 220 MG CAP PO (08:00)
[2017-09-29] MEDS: FERROUS SULFATE (EC) 325 MG TAB PO ×2 (08:00→21:33)
[2017-09-29] MEDS: FOLIC ACID 1 MG TAB PO (08:00)
[2017-09-29] MEDS: TRIAMCINOLONE ACET 0.1% 15 GM CR TOP ×2 (08:01→21:33)
[2017-09-29] MEDS: ZOLPIDEM 5 MG TAB PO (22:45)
[2017-09-30] MEDS: HYDROmorphONE 2 MG TAB PO ×4 (02:28→20:13)
[2017-09-30 06:14] LABS: ADD MAN DIFF? NO
[2017-09-30 06:17] LABS: BASOPHILS % 0.8 % (0.0-2.0); EOSINOPHILS # 0.4 10^3/ul (0.0-0.5); EOSINOPHILS % 7.6 % (0.0-7.0); HEMATOCRIT 31.4 % (42.0-52.0); HEMOGLOBIN 10.2 g/dl (14.0-18.0); LYMPHOCYTES # 1.3 10^3/ul (0.8-2.9); LYMPHOCYTES % 26.1 % (15.0-51.0); MEAN CORPUSCULAR HEMOGLOBIN 31.5 pg (29.0-33.0); MEAN CORPUSCULAR HGB CONC 32.5 g/dl (32.0-37.0); MEAN CORPUSCULAR VOLUME 96.9 fl (82.0-101.0); MEAN PLATELET VOLUME 10.7 fl (7.4-10.4); MONOCYTE # 0.7 10^3/ul (0.3-0.9); MONOCYTES % 14.3 % (0.0-11.0); NEUTROPHIL # 2.5 10^3/ul (1.6-7.5); PLATELET COUNT 109 10^3/UL (140-415); RED BLOOD COUNT 3.24 10^6/ul (4.70-6.10); RED CELL DISTRIBUTION WIDTH 17.8 % (11.5-14.5)
[2017-09-30 06:59] LABS: ANION GAP 12 (8-16); BLOOD UREA NITROGEN 21 mg/dl (7-20); CALCIUM 9.7 mg/dl (8.4-10.2); CARBON DIOXIDE 24 mmol/L (21-31); CHLORIDE 109 mmol/L (97-110); CREATININE 0.79 mg/dl (0.61-1.24); GLUCOSE 115 mg/dl (70-220); POTASSIUM 4.3 mmol/L (3.5-5.1); SODIUM 141 mmol/L (135-144)
[2017-09-30] MEDS: DULOXETINE 30 MG CAP DR PO (08:39)
[2017-09-30] MEDS: ZINC SULFATE 220 MG CAP PO (08:39)
[2017-09-30] MEDS: FOLIC ACID 1 MG TAB PO (08:39)
[2017-09-30] MEDS: FERROUS SULFATE (EC) 325 MG TAB PO ×2 (08:39→20:13)
[2017-09-30] MEDS: TRIAMCINOLONE ACET 0.1% 15 GM CR TOP ×2 (08:41→20:14)
[2017-09-30] MEDS: LIDOCAINE 5% PATCH TD (08:42)
[2017-09-30] MEDS: ZOLPIDEM 5 MG TAB PO (23:22)
[2017-10-01] MEDS: CYCLOBENZAPRINE 10 MG TAB PO ×4 (00:30→21:37)
[2017-10-01] MEDS: HYDROmorphONE 2 MG TAB PO ×4 (03:44→21:37)
[2017-10-01 06:12] LABS: ADD MAN DIFF? NO
[2017-10-01 06:21] LABS: ABNORMAL IP MESSAGE 1; BASOPHILS % 0.8 % (0.0-2.0); EOSINOPHILS # 0.4 10^3/ul (0.0-0.5); EOSINOPHILS % 6.8 % (0.0-7.0); HEMOGLOBIN 9.9 g/dl (14.0-18.0); LYMPHOCYTES # 1.3 10^3/ul (0.8-2.9); LYMPHOCYTES % 25.1 % (15.0-51.0); MEAN CORPUSCULAR HEMOGLOBIN 31.7 pg (29.0-33.0); MEAN CORPUSCULAR VOLUME 96.2 fl (82.0-101.0); MONOCYTE # 0.7 10^3/ul (0.3-0.9); MONOCYTES % 13.1 % (0.0-11.0); NEUTROPHIL # 2.9 10^3/ul (1.6-7.5); PLATELET COUNT 98 10^3/UL (140-415); POSITIVE DIFF @See below; RED BLOOD COUNT 3.12 10^6/ul (4.70-6.10); RED CELL DISTRIBUTION WIDTH 17.8 % (11.5-14.5)
[2017-10-01 06:21] LABS: WHITE BLOOD COUNT 5.3 10^3/ul (4.8-10.8)
[2017-10-01 06:49] LABS: ANION GAP 10 (8-16); BLOOD UREA NITROGEN 26 mg/dl (7-20); CALCIUM 9.5 mg/dl (8.4-10.2); CARBON DIOXIDE 24 mmol/L (21-31); CHLORIDE 108 mmol/L (97-110); GLUCOSE 102 mg/dl (70-220); POTASSIUM 3.9 mmol/L (3.5-5.1); SODIUM 138 mmol/L (135-144)
[2017-10-01] MEDS: DULOXETINE 30 MG CAP DR PO (08:32)
[2017-10-01] MEDS: FERROUS SULFATE (EC) 325 MG TAB PO ×2 (08:32→21:36)
[2017-10-01] MEDS: ZINC SULFATE 220 MG CAP PO (08:32)
[2017-10-01] MEDS: FOLIC ACID 1 MG TAB PO (08:32)
[2017-10-01] MEDS: LIDOCAINE 5% PATCH TD (08:33)
[2017-10-01] MEDS: TRIAMCINOLONE ACET 0.1% 15 GM CR TOP ×2 (08:33→21:38)
[2017-10-01] MEDS: ZOLPIDEM 5 MG TAB PO (21:37)
[2017-10-02] MEDS: CYCLOBENZAPRINE 10 MG TAB PO ×3 (05:56→21:37)
[2017-10-02 06:55] LABS: ADD MAN DIFF? NO
[2017-10-02 06:57] LABS: BASOPHILS % 0.5 % (0.0-2.0); EOSINOPHILS # 0.3 10^3/ul (0.0-0.5); EOSINOPHILS % 6.2 % (0.0-7.0); HEMATOCRIT 30.6 % (42.0-52.0); HEMOGLOBIN 10.2 g/dl (14.0-18.0); LYMPHOCYTES # 1.3 10^3/ul (0.8-2.9); LYMPHOCYTES % 23.4 % (15.0-51.0); MEAN CORPUSCULAR HEMOGLOBIN 32.4 pg (29.0-33.0); MEAN CORPUSCULAR HGB CONC 33.3 g/dl (32.0-37.0); MEAN CORPUSCULAR VOLUME 97.1 fl (82.0-101.0); MEAN PLATELET VOLUME 10.3 fl (7.4-10.4); MONOCYTE # 0.8 10^3/ul (0.3-0.9); MONOCYTES % 14.7 % (0.0-11.0); NEUTROPHILS % 54.8 % (39.0-77.0); PLATELET COUNT 103 10^3/UL (140-415); RED BLOOD COUNT 3.15 10^6/ul (4.70-6.10); RED CELL DISTRIBUTION WIDTH 17.7 % (11.5-14.5)
[2017-10-02 06:57] LABS: WHITE BLOOD COUNT 5.5 10^3/ul (4.8-10.8)
[2017-10-02 07:21] LABS: ANION GAP 13 (8-16); BLOOD UREA NITROGEN 26 mg/dl (7-20); CALCIUM 8.9 mg/dl (8.4-10.2); CARBON DIOXIDE 24 mmol/L (21-31); CHLORIDE 109 mmol/L (97-110); CREATININE 0.86 mg/dl (0.61-1.24); GLUCOSE 106 mg/dl (70-220); POTASSIUM 3.6 mmol/L (3.5-5.1); SODIUM 142 mmol/L (135-144)
[2017-10-02] MEDS: ZINC SULFATE 220 MG CAP PO (09:04)
[2017-10-02] MEDS: DULOXETINE 30 MG CAP DR PO (09:04)
[2017-10-02] MEDS: FOLIC ACID 1 MG TAB PO (09:04)
[2017-10-02] MEDS: FERROUS SULFATE (EC) 325 MG TAB PO ×2 (09:04→21:37)
[2017-10-02] MEDS: LIDOCAINE 5% PATCH TD (09:05)
[2017-10-02] MEDS: HYDROmorphONE 2 MG TAB PO ×2 (12:41→18:26)
[2017-10-02] MEDS: TRIAMCINOLONE ACET 0.1% 15 GM CR TOP ×2 (15:18→21:38)
[2017-10-02] MEDS: ZOLPIDEM 5 MG TAB PO (21:37)
[2017-10-03] MEDS: HYDROmorphONE 2 MG TAB PO ×4 (01:37→22:35)
[2017-10-03] MEDS: CYCLOBENZAPRINE 10 MG TAB PO ×3 (06:05→22:30)
[2017-10-03 06:14] LABS: ADD MAN DIFF? NO
[2017-10-03 06:22] LABS: BASOPHILS % 0.8 % (0.0-2.0); EOSINOPHILS # 0.4 10^3/ul (0.0-0.5); EOSINOPHILS % 8.1 % (0.0-7.0); HEMATOCRIT 32.8 % (42.0-52.0); HEMOGLOBIN 10.5 g/dl (14.0-18.0); LYMPHOCYTES # 1.4 10^3/ul (0.8-2.9); LYMPHOCYTES % 29.4 % (15.0-51.0); MEAN CORPUSCULAR HEMOGLOBIN 31.5 pg (29.0-33.0); MEAN CORPUSCULAR VOLUME 98.5 fl (82.0-101.0); MEAN PLATELET VOLUME 10.9 fl (7.4-10.4); MONOCYTE # 0.5 10^3/ul (0.3-0.9); MONOCYTES % 10.4 % (0.0-11.0); NEUTROPHIL # 2.4 10^3/ul (1.6-7.5); NEUTROPHILS % 50.7 % (39.0-77.0); PLATELET COUNT 113 10^3/UL (140-415); RED BLOOD COUNT 3.33 10^6/ul (4.70-6.10); RED CELL DISTRIBUTION WIDTH 17.8 % (11.5-14.5)
[2017-10-03 06:22] LABS: WHITE BLOOD COUNT 4.8 10^3/ul (4.8-10.8)
[2017-10-03 07:00] LABS: ANION GAP 12 (8-16); BLOOD UREA NITROGEN 25 mg/dl (7-20); CALCIUM 9.5 mg/dl (8.4-10.2); CARBON DIOXIDE 25 mmol/L (21-31); CHLORIDE 109 mmol/L (97-110); CREATININE 0.91 mg/dl (0.61-1.24); GLUCOSE 121 mg/dl (70-220); POTASSIUM 4.2 mmol/L (3.5-5.1); SODIUM 142 mmol/L (135-144)
[2017-10-03] MEDS: FERROUS SULFATE (EC) 325 MG TAB PO ×2 (08:04→21:16)
[2017-10-03] MEDS: DULOXETINE 30 MG CAP DR PO (08:04)
[2017-10-03] MEDS: FOLIC ACID 1 MG TAB PO (08:04)
[2017-10-03] MEDS: ZINC SULFATE 220 MG CAP PO (08:04)
[2017-10-03] MEDS: TRIAMCINOLONE ACET 0.1% 15 GM CR TOP ×2 (08:05→21:16)
[2017-10-03] MEDS: LIDOCAINE 5% PATCH TD (08:17)
[2017-10-04] MEDS: HYDROmorphONE 2 MG TAB PO ×3 (04:38→21:39)
[2017-10-04] MEDS: CYCLOBENZAPRINE 10 MG TAB PO ×3 (06:16→21:17)
[2017-10-04] MEDS: FOLIC ACID 1 MG TAB PO (08:58)
[2017-10-04] MEDS: DULOXETINE 30 MG CAP DR PO (08:58)
[2017-10-04] MEDS: ZINC SULFATE 220 MG CAP PO (08:58)
[2017-10-04] MEDS: FERROUS SULFATE (EC) 325 MG TAB PO ×2 (08:58→21:17)
[2017-10-04] MEDS: LIDOCAINE 5% PATCH TD (08:59)
[2017-10-04] MEDS: TRIAMCINOLONE ACET 0.1% 15 GM CR TOP ×2 (08:59→21:19)
[2017-10-04] MEDS ORDERED: VANCOMYCIN IV PER PHARMACY XX (14:30)
[2017-10-04] MEDS: CEFEPIME 1GM/50 ML (PMX) 50 ML IVPB (15:00)
[2017-10-04] MEDS: VANCOMYCIN 1.25 GM in SOD CHLORIDE 0.45% 250 ML IVPB ×2 (15:30→22:09)
[2017-10-05] MEDS: CEFEPIME 1GM/50 ML (PMX) 50 ML IVPB ×3 (01:33→20:35)
[2017-10-05 01:47] LABS: CHOLESTEROL 118 mg/dl (100-200)
[2017-10-05 01:47] LABS: CHOL/HDL RATIO 2.1 RATIO; HDL CHOLESTEROL 54 mg/dl (28-71); LDL CHOLESTEROL,CALCULATED 56 mg/dl; TRIGLYCERIDES 40 mg/dl (0-149)
[2017-10-05] MEDS: HYDROmorphONE 2 MG TAB PO ×5 (01:54→20:34)
[2017-10-05 02:00] LABS: TROPONIN-I < 0.012 ng/ml (0.00-0.12)
[2017-10-05] MEDS ORDERED: VANCOMYCIN 750 MG in DEXTROSE 5% 150 ML IVPB (03:30)
[2017-10-05 06:14] LABS: ADD MAN DIFF? NO
[2017-10-05] MEDS: CYCLOBENZAPRINE 10 MG TAB PO ×3 (06:23→22:53)
[2017-10-05 06:28] LABS: ABNORMAL IP MESSAGE 1; EOSINOPHILS # 0.4 10^3/ul (0.0-0.5); EOSINOPHILS % 9.6 % (0.0-7.0); HEMOGLOBIN 9.9 g/dl (14.0-18.0); LYMPHOCYTES # 1.1 10^3/ul (0.8-2.9); LYMPHOCYTES % 26.3 % (15.0-51.0); MEAN CORPUSCULAR HEMOGLOBIN 32.2 pg (29.0-33.0); MEAN CORPUSCULAR VOLUME 97.7 fl (82.0-101.0); MEAN PLATELET VOLUME 10.7 fl (7.4-10.4); MONOCYTE # 0.5 10^3/ul (0.3-0.9); MONOCYTES % 12.4 % (0.0-11.0); NEUTROPHIL # 2.1 10^3/ul (1.6-7.5); NEUTROPHILS % 50.5 % (39.0-77.0); PLATELET COUNT 99 10^3/UL (140-415); POSITIVE DIFF @See below; RED BLOOD COUNT 3.07 10^6/ul (4.70-6.10); RED CELL DISTRIBUTION WIDTH 17.2 % (11.5-14.5)
[2017-10-05 06:28] LABS: WHITE BLOOD COUNT 4.2 10^3/ul (4.8-10.8)
[2017-10-05 06:42] LABS: INR 1.12; PROTIME 14.6 Sec (11.9-14.9); PT RATIO 1.1
[2017-10-05 07:13] LABS: CHOL/HDL RATIO 2.1 RATIO; HDL CHOLESTEROL 50 mg/dl (28-71); LDL CHOLESTEROL,CALCULATED 50 mg/dl; TRIGLYCERIDES 32 mg/dl (0-149)
[2017-10-05 07:13] LABS: CHOLESTEROL 106 mg/dl (100-200)
[2017-10-05 07:19] LABS: TROPONIN-I < 0.012 ng/ml (0.00-0.12)
[2017-10-05 07:38] LABS: ANION GAP 10 (8-16); BLOOD UREA NITROGEN 22 mg/dl (7-20); CALCIUM 9.1 mg/dl (8.4-10.2); CARBON DIOXIDE 24 mmol/L (21-31); CHLORIDE 110 mmol/L (97-110); CREATININE 0.79 mg/dl (0.61-1.24); GLUCOSE 130 mg/dl (70-220); POTASSIUM 3.6 mmol/L (3.5-5.1); SODIUM 140 mmol/L (135-144)
[2017-10-05] MEDS: FERROUS SULFATE (EC) 325 MG TAB PO ×2 (08:53→20:34)
[2017-10-05] MEDS: ZINC SULFATE 220 MG CAP PO (08:53)
[2017-10-05] MEDS: DULOXETINE 30 MG CAP DR PO (08:53)
[2017-10-05] MEDS: FOLIC ACID 1 MG TAB PO (08:53)
[2017-10-05] MEDS: LIDOCAINE 5% PATCH TD (08:55)
[2017-10-05] MEDS: TRIAMCINOLONE ACET 0.1% 15 GM CR TOP ×2 (08:56→20:34)
[2017-10-05] MEDS: VANCOMYCIN 750 MG in DEXTROSE 5% 150 ML IVPB ×2 (11:11→22:54)
[2017-10-05 13:39] LABS: TROPONIN-I < 0.012 ng/ml (0.00-0.12)
[2017-10-05] MEDS: LIDOCAINE 1% (MPF) 5 ML VIAL SC (20:00)
[2017-10-06] MEDS: CYCLOBENZAPRINE 10 MG TAB PO ×3 (05:02→22:28)
[2017-10-06] MEDS: HYDROmorphONE 2 MG TAB PO ×4 (05:02→20:33)
[2017-10-06 06:22] LABS: ADD MAN DIFF? NO
[2017-10-06 06:36] LABS: BASOPHILS % 0.9 % (0.0-2.0); EOSINOPHILS # 0.4 10^3/ul (0.0-0.5); EOSINOPHILS % 8.7 % (0.0-7.0); HEMOGLOBIN 9.7 g/dl (14.0-18.0); LYMPHOCYTES # 1.2 10^3/ul (0.8-2.9); LYMPHOCYTES % 28.2 % (15.0-51.0); MEAN CORPUSCULAR HEMOGLOBIN 31.8 pg (29.0-33.0); MEAN CORPUSCULAR HGB CONC 32.3 g/dl (32.0-37.0); MEAN CORPUSCULAR VOLUME 98.4 fl (82.0-101.0); MEAN PLATELET VOLUME 10.5 fl (7.4-10.4); MONOCYTE # 0.7 10^3/ul (0.3-0.9); MONOCYTES % 14.9 % (0.0-11.0); NEUTROPHIL # 2.1 10^3/ul (1.6-7.5); NEUTROPHILS % 47.1 % (39.0-77.0); PLATELET COUNT 104 10^3/UL (140-415); RED BLOOD COUNT 3.05 10^6/ul (4.70-6.10); RED CELL DISTRIBUTION WIDTH 17.5 % (11.5-14.5)
[2017-10-06 06:36] LABS: WHITE BLOOD COUNT 4.4 10^3/ul (4.8-10.8)
[2017-10-06 07:18] LABS: ANION GAP 11 (8-16); BLOOD UREA NITROGEN 21 mg/dl (7-20); CARBON DIOXIDE 25 mmol/L (21-31); CHLORIDE 109 mmol/L (97-110); CREATININE 0.81 mg/dl (0.61-1.24); GLUCOSE 92 mg/dl (70-220); POTASSIUM 3.8 mmol/L (3.5-5.1); SODIUM 141 mmol/L (135-144)
[2017-10-06] MEDS: FOLIC ACID 1 MG TAB PO (08:29)
[2017-10-06] MEDS: ZINC SULFATE 220 MG CAP PO (08:30)
[2017-10-06] MEDS: FERROUS SULFATE (EC) 325 MG TAB PO ×2 (08:30→20:32)
[2017-10-06] MEDS: CEFEPIME 1GM/50 ML (PMX) 50 ML IVPB ×2 (08:30→20:32)
[2017-10-06] MEDS: DULOXETINE 30 MG CAP DR PO (08:30)
[2017-10-06] MEDS: TRIAMCINOLONE ACET 0.1% 15 GM CR TOP ×2 (08:31→20:33)
[2017-10-06] MEDS: LIDOCAINE 5% PATCH TD (08:31)
[2017-10-06 09:40] LABS: VANCOMYCIN,TROUGH 10.7 ug/ml (10.0-20.0)
[2017-10-06] MEDS: VANCOMYCIN 750 MG in DEXTROSE 5% 150 ML IVPB (10:50)
[2017-10-06] MEDS: HEPARIN (10 UNITS/ML) 5ML SYG IV (16:30)
[2017-10-06] MEDS: VANCOMYCIN 1 GM 250 ML IVPB (22:28)
[2017-10-07] MEDS: HYDROmorphONE 2 MG TAB PO ×5 (01:05→18:44)
[2017-10-07] MEDS: CYCLOBENZAPRINE 10 MG TAB PO ×3 (05:42→23:03)
[2017-10-07] MEDS: CEFEPIME 1GM/50 ML (PMX) 50 ML IVPB ×2 (09:45→23:02)
[2017-10-07] MEDS: DULOXETINE 30 MG CAP DR PO (09:46)
[2017-10-07] MEDS: FERROUS SULFATE (EC) 325 MG TAB PO ×2 (09:46→23:02)
[2017-10-07] MEDS: FOLIC ACID 1 MG TAB PO (09:46)
[2017-10-07] MEDS: VANCOMYCIN 1 GM 250 ML IVPB (09:46)
[2017-10-07] MEDS: ZINC SULFATE 220 MG CAP PO (09:46)
[2017-10-07] MEDS: TRIAMCINOLONE ACET 0.1% 15 GM CR TOP ×2 (09:47→23:09)
[2017-10-07] MEDS: LIDOCAINE 5% PATCH TD (09:47)
[2017-10-07] MEDS: ZOLPIDEM 5 MG TAB PO (23:03)
[2017-10-08] MEDS: VANCOMYCIN 1 GM 250 ML IVPB ×3 (00:34→23:53)
[2017-10-08] MEDS: HYDROmorphONE 2 MG TAB PO ×4 (02:44→19:06)
[2017-10-08] MEDS: CYCLOBENZAPRINE 10 MG TAB PO ×3 (07:00→22:01)
[2017-10-08] MEDS: FERROUS SULFATE (EC) 325 MG TAB PO ×2 (08:38→22:04)
[2017-10-08] MEDS: DULOXETINE 30 MG CAP DR PO (08:38)
[2017-10-08] MEDS: ZINC SULFATE 220 MG CAP PO (08:38)
[2017-10-08] MEDS: FOLIC ACID 1 MG TAB PO (08:38)
[2017-10-08] MEDS: LIDOCAINE 5% PATCH TD (08:39)
[2017-10-08] MEDS: CEFEPIME 1GM/50 ML (PMX) 50 ML IVPB ×2 (08:39→22:01)
[2017-10-08] MEDS: TRIAMCINOLONE ACET 0.1% 15 GM CR TOP ×2 (10:18→22:04)
[2017-10-08] MEDS: ZOLPIDEM 5 MG TAB PO (22:02)
[2017-10-08 22:14] LABS: VANCOMYCIN,TROUGH 14.4 ug/ml (10.0-20.0)
[2017-10-09] MEDS: HYDROmorphONE 2 MG TAB PO ×5 (00:19→21:04)
[2017-10-09] MEDS: CYCLOBENZAPRINE 10 MG TAB PO ×3 (06:07→22:20)
[2017-10-09 06:08] LABS: ADD MAN DIFF? NO
[2017-10-09 06:14] LABS: WHITE BLOOD COUNT 4.2 10^3/ul (4.8-10.8)
[2017-10-09 06:14] LABS: ABNORMAL IP MESSAGE 1; BASOPHILS % 0.7 % (0.0-2.0); EOSINOPHILS # 0.2 10^3/ul (0.0-0.5); EOSINOPHILS % 5.5 % (0.0-7.0); HEMATOCRIT 27.4 % (42.0-52.0); HEMOGLOBIN 9.2 g/dl (14.0-18.0); LYMPHOCYTES # 1.1 10^3/ul (0.8-2.9); LYMPHOCYTES % 25.4 % (15.0-51.0); MEAN CORPUSCULAR HEMOGLOBIN 32.5 pg (29.0-33.0); MEAN CORPUSCULAR HGB CONC 33.6 g/dl (32.0-37.0); MEAN CORPUSCULAR VOLUME 96.8 fl (82.0-101.0); MEAN PLATELET VOLUME 10.2 fl (7.4-10.4); MONOCYTE # 0.5 10^3/ul (0.3-0.9); MONOCYTES % 11.7 % (0.0-11.0); NEUTROPHIL # 2.4 10^3/ul (1.6-7.5); NEUTROPHILS % 56.5 % (39.0-77.0); PLATELET COUNT 93 10^3/UL (140-415); POSITIVE DIFF @See below; RED BLOOD COUNT 2.83 10^6/ul (4.70-6.10)
[2017-10-09 06:48] LABS: ANION GAP 11 (8-16); BLOOD UREA NITROGEN 16 mg/dl (7-20); CALCIUM 9.1 mg/dl (8.4-10.2); CARBON DIOXIDE 24 mmol/L (21-31); CHLORIDE 109 mmol/L (97-110); CREATININE 0.64 mg/dl (0.61-1.24); GLUCOSE 89 mg/dl (70-220); POTASSIUM 3.9 mmol/L (3.5-5.1); SODIUM 140 mmol/L (135-144)
[2017-10-09] MEDS: CEFEPIME 1GM/50 ML (PMX) 50 ML IVPB ×2 (10:22→21:03)
[2017-10-09] MEDS: ZINC SULFATE 220 MG CAP PO (10:23)
[2017-10-09] MEDS: FOLIC ACID 1 MG TAB PO (10:23)
[2017-10-09] MEDS: FERROUS SULFATE (EC) 325 MG TAB PO ×2 (10:23→21:03)
[2017-10-09] MEDS: DULOXETINE 30 MG CAP DR PO (10:23)
[2017-10-09] MEDS: TRIAMCINOLONE ACET 0.1% 15 GM CR TOP ×2 (10:24→21:03)
[2017-10-09] MEDS: LIDOCAINE 5% PATCH TD (10:25)
[2017-10-09] MEDS: VANCOMYCIN 1 GM 250 ML IVPB ×2 (11:27→22:20)
[2017-10-09] MEDS: ZOLPIDEM 5 MG TAB PO (22:24)
[2017-10-10] MEDS: HYDROmorphONE 2 MG TAB PO ×4 (02:55→21:00)
[2017-10-10] MEDS: CYCLOBENZAPRINE 10 MG TAB PO ×3 (05:48→21:49)
[2017-10-10 05:55] LABS: ADD MAN DIFF? NO
[2017-10-10 05:59] LABS: ABNORMAL IP MESSAGE 1; BASOPHIL # 0.1 10^3/ul (0.0-0.1); BASOPHILS % 1.2 % (0.0-2.0); EOSINOPHILS # 0.2 10^3/ul (0.0-0.5); EOSINOPHILS % 4.7 % (0.0-7.0); HEMATOCRIT 28.2 % (42.0-52.0); HEMOGLOBIN 9.3 g/dl (14.0-18.0); LYMPHOCYTES # 1.1 10^3/ul (0.8-2.9); MEAN CORPUSCULAR HEMOGLOBIN 32.1 pg (29.0-33.0); MEAN CORPUSCULAR VOLUME 97.2 fl (82.0-101.0); MONOCYTE # 0.6 10^3/ul (0.3-0.9); MONOCYTES % 15.2 % (0.0-11.0); NEUTROPHIL # 2.1 10^3/ul (1.6-7.5); NEUTROPHILS % 51.7 % (39.0-77.0); PLATELET COUNT 95 10^3/UL (140-415); POSITIVE DIFF @See below; RED CELL DISTRIBUTION WIDTH 16.8 % (11.5-14.5)
[2017-10-10 05:59] LABS: WHITE BLOOD COUNT 4.1 10^3/ul (4.8-10.8)
[2017-10-10 06:25] LABS: ANION GAP 10 (8-16); BLOOD UREA NITROGEN 17 mg/dl (7-20); CALCIUM 9.5 mg/dl (8.4-10.2); CARBON DIOXIDE 26 mmol/L (21-31); CHLORIDE 108 mmol/L (97-110); CREATININE 0.71 mg/dl (0.61-1.24); GLUCOSE 96 mg/dl (70-220); POTASSIUM 4.1 mmol/L (3.5-5.1); SODIUM 140 mmol/L (135-144)
[2017-10-10] MEDS: CEFEPIME 1GM/50 ML (PMX) 50 ML IVPB ×2 (08:33→20:59)
[2017-10-10] MEDS: FERROUS SULFATE (EC) 325 MG TAB PO ×2 (08:34→21:00)
[2017-10-10] MEDS: LIDOCAINE 5% PATCH TD (08:34)
[2017-10-10] MEDS: DULOXETINE 30 MG CAP DR PO (08:34)
[2017-10-10] MEDS: ZINC SULFATE 220 MG CAP PO (08:34)
[2017-10-10] MEDS: FOLIC ACID 1 MG TAB PO (08:34)
[2017-10-10] MEDS: TRIAMCINOLONE ACET 0.1% 15 GM CR TOP ×2 (08:35→21:05)
[2017-10-10] MEDS: VANCOMYCIN 1 GM 250 ML IVPB ×2 (10:19→21:49)
[2017-10-10] MEDS: ZOLPIDEM 5 MG TAB PO (21:00)
[2017-10-11] MEDS: HYDROmorphONE 2 MG TAB PO ×5 (02:55→22:58)
[2017-10-11] MEDS: CYCLOBENZAPRINE 10 MG TAB PO ×3 (05:41→21:05)
[2017-10-11 06:22] LABS: ADD MAN DIFF? NO
[2017-10-11 06:34] LABS: BASOPHILS % 0.6 % (0.0-2.0); EOSINOPHILS # 0.2 10^3/ul (0.0-0.5); EOSINOPHILS % 3.2 % (0.0-7.0); HEMATOCRIT 28.9 % (42.0-52.0); HEMOGLOBIN 9.5 g/dl (14.0-18.0); LYMPHOCYTES # 1.1 10^3/ul (0.8-2.9); LYMPHOCYTES % 22.7 % (15.0-51.0); MEAN CORPUSCULAR HGB CONC 32.9 g/dl (32.0-37.0); MEAN CORPUSCULAR VOLUME 97.3 fl (82.0-101.0); MEAN PLATELET VOLUME 10.2 fl (7.4-10.4); MONOCYTE # 0.6 10^3/ul (0.3-0.9); MONOCYTES % 11.8 % (0.0-11.0); NEUTROPHIL # 3.1 10^3/ul (1.6-7.5); NEUTROPHILS % 61.5 % (39.0-77.0); PLATELET COUNT 106 10^3/UL (140-415); RED BLOOD COUNT 2.97 10^6/ul (4.70-6.10); RED CELL DISTRIBUTION WIDTH 16.9 % (11.5-14.5)
[2017-10-11 06:50] LABS: INR 1.15; PROTIME 14.9 Sec (11.9-14.9); PT RATIO 1.2
[2017-10-11 06:51] LABS: PARTIAL THROMBOPLASTIN TIME 36.1 Sec (25.0-35.0); THROMBIN TIME 15.2 SEC (13.8-19.1)
[2017-10-11 06:52] LABS: ANION GAP 10 (8-16); BLOOD UREA NITROGEN 17 mg/dl (7-20); CALCIUM 9.5 mg/dl (8.4-10.2); CARBON DIOXIDE 26 mmol/L (21-31); CHLORIDE 108 mmol/L (97-110); CREATININE 0.68 mg/dl (0.61-1.24); GLUCOSE 93 mg/dl (70-220); POTASSIUM 4.1 mmol/L (3.5-5.1); SODIUM 140 mmol/L (135-144)
[2017-10-11] MEDS: CEFEPIME 1GM/50 ML (PMX) 50 ML IVPB ×2 (08:19→21:05)
[2017-10-11] MEDS: FOLIC ACID 1 MG TAB PO (08:20)
[2017-10-11] MEDS: ZINC SULFATE 220 MG CAP PO (08:20)
[2017-10-11] MEDS: FERROUS SULFATE (EC) 325 MG TAB PO ×2 (08:20→21:05)
[2017-10-11] MEDS: LIDOCAINE 5% PATCH TD (08:20)
[2017-10-11] MEDS: DULOXETINE 30 MG CAP DR PO (08:20)
[2017-10-11] MEDS: TRIAMCINOLONE ACET 0.1% 15 GM CR TOP ×2 (08:21→21:06)
[2017-10-11 08:45] LABS: PLATELET COUNT 105 10^3/UL (140-440)
[2017-10-11] MEDS: VANCOMYCIN 1 GM 250 ML IVPB ×2 (10:06→22:05)
[2017-10-12] MEDS: HYDROmorphONE 1 MG/ML SYG IV ×3 (03:11→23:34)
[2017-10-12] MEDS: CYCLOBENZAPRINE 10 MG TAB PO ×3 (05:48→21:50)
[2017-10-12] MEDS ORDERED: ALBUMIN HUMAN 25% 100 ML INJ (07:00)
[2017-10-12] MEDS ORDERED: CEFAZOLIN 1 GM INJ (07:00)
[2017-10-12] MEDS ORDERED: SUCCINYLCHOLINE CHLORIDE 100 MG/5 ML SYG IV (07:00)
[2017-10-12] MEDS ORDERED: CA CHLORIDE 10% 10 ML SYRINGE ×2 (07:00→11:08)
[2017-10-12] MEDS ORDERED: MIDAZOLAM 1 MG/ML 2 ML INJ (08:12)
[2017-10-12] MEDS ORDERED: SURGIFOAM POWDER 1 GM KIT (08:21)
[2017-10-12] MEDS ORDERED: THROMBIN 5000 UNIT VIAL (08:21)
[2017-10-12] MEDS ORDERED: ROPIVACAINE 0.5 % 30 ML VIAL ×2 (08:50→09:25)
[2017-10-12] MEDS ORDERED: GELATIN SIZE 100 SPONGE (08:50)
[2017-10-12] MEDS: LIDOCAINE 5% PATCH TD (09:00)
[2017-10-12] MEDS: CEFEPIME 1GM/50 ML (PMX) 50 ML IVPB ×2 (09:00→21:24)
[2017-10-12] MEDS: FUROSEMIDE 20 MG TAB PO (09:00)
[2017-10-12] MEDS: FERROUS SULFATE (EC) 325 MG TAB PO ×2 (09:00→21:24)
[2017-10-12] MEDS: TRIAMCINOLONE ACET 0.1% 15 GM CR TOP ×2 (09:00→21:50)
[2017-10-12] MEDS: FOLIC ACID 1 MG TAB PO (09:00)
[2017-10-12] MEDS: ZINC SULFATE 220 MG CAP PO (09:00)
[2017-10-12] MEDS: SPIRONOLACTONE 50 MG TAB PO (09:00)
[2017-10-12] MEDS: DULOXETINE 30 MG CAP DR PO (09:00)
[2017-10-12] MEDS: ROPIVACAINE 0.5 % 30 ML VIAL INJ (09:11)
[2017-10-12] MEDS ORDERED: LIDOCAINE 100 MG SYRINGE (09:22)
[2017-10-12] MEDS ORDERED: PROPOFOL 20 ML (09:22)
[2017-10-12] MEDS ORDERED: GLYCOPYRROLATE 0.4 MG INJ (09:24)
[2017-10-12] MEDS ORDERED: NEOSTIGMINE 3 MG/3 ML SYRINGE (09:24)
[2017-10-12] MEDS ORDERED: ROCURONIUM 50 MG INJ (09:25)
[2017-10-12] MEDS ORDERED: LABETALOL HCL 20MG INJ ×2 (09:29→11:29)
[2017-10-12] MEDS ORDERED: NITROGLYCERIN 50 MG/D5W (PMX) 250 ML (09:30)
[2017-10-12] MEDS: GELATIN SIZE 100 SPONGE TOP (09:30)
[2017-10-12] MEDS: POLYMYXIN/BACITRACIN 1L IRRIG IRR (09:30)
[2017-10-12] MEDS: THROMBIN 5000 UNIT VIAL TOP (09:30)
[2017-10-12] MEDS ORDERED: morphine 10 MG INJ (09:32)
[2017-10-12] MEDS ORDERED: METOPROLOL 5 MG INJ (09:48)
[2017-10-12] MEDS ORDERED: ONDANSETRON 4 MG INJ IV (10:00)
[2017-10-12] MEDS ORDERED: METOCLOPRAMIDE 10 MG INJ IV (10:00)
[2017-10-12] MEDS ORDERED: NALOXONE (0.4 MG/ML) INJ IV (10:00)
[2017-10-12] MEDS: VANCOMYCIN 1 GM 250 ML IVPB ×2 (10:00→18:03)
[2017-10-12] MEDS ORDERED: EPHEDrine SULFATE 50 MG/5 ML SYG IV (10:00)
[2017-10-12] MEDS ORDERED: hydrALAzine 20 MG INJ IV (10:00)
[2017-10-12] MEDS ORDERED: HYDROmorphONE 0.5 MG/0.5 ML SYG IV (10:00)
[2017-10-12] MEDS ORDERED: DIPHENHYDRAMINE 50 MG INJ IV (10:00)
[2017-10-12] MEDS ORDERED: ALBUMIN HUMAN 5% 250 ML IV (10:00)
[2017-10-12] MEDS ORDERED: LABETALOL HCL 20MG INJ IV (10:00)
[2017-10-12] MEDS ORDERED: DEXAMETHASONE 4 MG/ML 1 ML INJ (10:15)
[2017-10-12 10:30] LABS: IMMEDIATE SPIN CROSSMATCH 1 2
[2017-10-12] MEDS ORDERED: ONDANSETRON 4 MG INJ (10:55)
[2017-10-12] MEDS ORDERED: METOCLOPRAMIDE 10 MG INJ (10:55)
[2017-10-12] MEDS ORDERED: CARISOPRODOL 350 MG TAB PO (11:00)
[2017-10-12] MEDS ORDERED: HYDROmorphONE (0.2 MG/ML) 10ML SYG IV ×2 (12:47→14:00)
[2017-10-12] MEDS: HYDROmorphONE 0.5 MG/0.5 ML SYG IV ×3 (15:38→20:18)
[2017-10-12] MEDS: niCARdipine-NS 0.1MG/ML DRIP 200 ML IV (15:41)
[2017-10-13] MEDS: HYDROmorphONE 0.2 MG/ML PCA IV ×4 (01:07→23:35)
[2017-10-13] MEDS: niCARdipine-NS 0.1MG/ML DRIP 200 ML IV ×3 (02:54→15:10)
[2017-10-13] MEDS: CYCLOBENZAPRINE 10 MG TAB PO ×3 (05:21→21:06)
[2017-10-13] MEDS: VANCOMYCIN 1 GM 250 ML IVPB ×2 (05:21→18:08)
[2017-10-13] MEDS: LIDOCAINE 5% PATCH TD (09:00)
[2017-10-13] MEDS: ZINC SULFATE 220 MG CAP PO (09:28)
[2017-10-13] MEDS: CEFEPIME 1GM/50 ML (PMX) 50 ML IVPB ×2 (09:28→21:07)
[2017-10-13] MEDS: DULOXETINE 30 MG CAP DR PO (09:28)
[2017-10-13] MEDS: FERROUS SULFATE (EC) 325 MG TAB PO ×2 (09:29→21:06)
[2017-10-13] MEDS: FUROSEMIDE 20 MG TAB PO (09:29)
[2017-10-13] MEDS: SPIRONOLACTONE 50 MG TAB PO (09:29)
[2017-10-13] MEDS: FOLIC ACID 1 MG TAB PO (09:29)
[2017-10-13] MEDS: TRIAMCINOLONE ACET 0.1% 15 GM CR TOP ×2 (09:30→21:07)
[2017-10-13] MEDS: metroNIDAZOLE 250 MG TAB PO ×2 (14:39→21:06)
[2017-10-14 05:41] LABS: ADD MAN DIFF? NO
[2017-10-14 06:23] LABS: VANCOMYCIN,TROUGH 12.4 ug/ml (10.0-20.0)
[2017-10-14] MEDS: metroNIDAZOLE 250 MG TAB PO ×3 (06:47→22:09)
[2017-10-14] MEDS: CYCLOBENZAPRINE 10 MG TAB PO ×3 (06:47→22:00)
[2017-10-14] MEDS: VANCOMYCIN 1 GM 250 ML IVPB (06:48)
[2017-10-14 07:05] LABS: ALBUMIN/GLOBULIN RATIO 0.85; ANION GAP 11 (8-16)
[2017-10-14 07:41] LABS: ALANINE AMINOTRANSFERASE 78 IU/L (13-69); ALKALINE PHOSPHATASE 130 IU/L (42-121); ASPARTATE AMINO TRANSFERASE 107 IU/L (15-46); BILIRUBIN,INDIRECT 0.2 mg/dl (0-1.1); BILIRUBIN,TOTAL 0.2 mg/dl (0.2-1.3); BLOOD UREA NITROGEN 17 mg/dl (7-20); CALCIUM 9.7 mg/dl (8.4-10.2); CARBON DIOXIDE 24 mmol/L (21-31); CHLORIDE 107 mmol/L (97-110); CREATININE 0.65 mg/dl (0.61-1.24); GLUCOSE 128 mg/dl (70-220); POTASSIUM 4.5 mmol/L (3.5-5.1); SODIUM 137 mmol/L (135-144); TOTAL PROTEIN 6.5 g/dl (6.1-8.1)
[2017-10-14 07:47] LABS: ABNORMAL IP MESSAGE 1; BASOPHILS % 0.2 % (0.0-2.0); EOSINOPHILS % 0.2 % (0.0-7.0); HEMATOCRIT 27.4 % (42.0-52.0); HEMOGLOBIN 9.2 g/dl (14.0-18.0); LYMPHOCYTES % 8.3 % (15.0-51.0); MEAN CORPUSCULAR HEMOGLOBIN 32.1 pg (29.0-33.0); MEAN CORPUSCULAR HGB CONC 33.6 g/dl (32.0-37.0); MEAN CORPUSCULAR VOLUME 95.5 fl (82.0-101.0); MEAN PLATELET VOLUME 10.6 fl (7.4-10.4); MONOCYTE # 1.5 10^3/ul (0.3-0.9); MONOCYTES % 12.8 % (0.0-11.0); NEUTROPHIL # 9.5 10^3/ul (1.6-7.5); NEUTROPHILS % 78.2 % (39.0-77.0); PLATELET COUNT 111 10^3/UL (140-415); POSITIVE DIFF @See below; RED BLOOD COUNT 2.87 10^6/ul (4.70-6.10); RED CELL DISTRIBUTION WIDTH 16.3 % (11.5-14.5)
[2017-10-14 07:47] LABS: WHITE BLOOD COUNT 12.1 10^3/ul (4.8-10.8)
[2017-10-14] MEDS: FUROSEMIDE 20 MG TAB PO (08:41)
[2017-10-14] MEDS: DULOXETINE 30 MG CAP DR PO (08:41)
[2017-10-14] MEDS: TRIAMCINOLONE ACET 0.1% 15 GM CR TOP ×2 (08:41→22:10)
[2017-10-14] MEDS: HYDROmorphONE 0.2 MG/ML PCA IV ×2 (08:41→15:39)
[2017-10-14] MEDS: ZINC SULFATE 220 MG CAP PO (08:42)
[2017-10-14] MEDS: CEFEPIME 1GM/50 ML (PMX) 50 ML IVPB ×2 (08:42→22:09)
[2017-10-14] MEDS: FERROUS SULFATE (EC) 325 MG TAB PO ×2 (08:42→22:09)
[2017-10-14] MEDS: FOLIC ACID 1 MG TAB PO (08:42)
[2017-10-14] MEDS: SPIRONOLACTONE 50 MG TAB PO (08:42)
[2017-10-14] MEDS: LIDOCAINE 5% PATCH TD (08:43)
[2017-10-14] MEDS: VANCOMYCIN 1.25 GM in SOD CHLORIDE 0.45% 250 ML IVPB (18:48)
[2017-10-15] MEDS: HYDROmorphONE 0.2 MG/ML PCA IV ×4 (02:35→23:06)
[2017-10-15] MEDS: metroNIDAZOLE 250 MG TAB PO ×3 (05:20→21:01)
[2017-10-15] MEDS: CYCLOBENZAPRINE 10 MG TAB PO ×3 (05:21→21:01)
[2017-10-15] MEDS: VANCOMYCIN 1.25 GM in SOD CHLORIDE 0.45% 250 ML IVPB ×2 (05:22→18:04)
[2017-10-15 06:17] LABS: ADD MAN DIFF? NO
[2017-10-15 06:28] LABS: ABNORMAL IP MESSAGE 1; BASOPHIL # 0.1 10^3/ul (0.0-0.1); BASOPHILS % 0.5 % (0.0-2.0); EOSINOPHILS # 0.1 10^3/ul (0.0-0.5); EOSINOPHILS % 1.4 % (0.0-7.0); HEMATOCRIT 27.4 % (42.0-52.0); HEMOGLOBIN 9.1 g/dl (14.0-18.0); LYMPHOCYTES # 1.4 10^3/ul (0.8-2.9); LYMPHOCYTES % 14.7 % (15.0-51.0); MEAN CORPUSCULAR HEMOGLOBIN 32.4 pg (29.0-33.0); MEAN CORPUSCULAR HGB CONC 33.2 g/dl (32.0-37.0); MEAN CORPUSCULAR VOLUME 97.5 fl (82.0-101.0); MEAN PLATELET VOLUME 10.3 fl (7.4-10.4); MONOCYTE # 1.7 10^3/ul (0.3-0.9); MONOCYTES % 17.3 % (0.0-11.0); NEUTROPHIL # 6.3 10^3/ul (1.6-7.5); NEUTROPHILS % 65.6 % (39.0-77.0); PLATELET COUNT 98 10^3/UL (140-415); POSITIVE DIFF @See below; RED BLOOD COUNT 2.81 10^6/ul (4.70-6.10); RED CELL DISTRIBUTION WIDTH 16.1 % (11.5-14.5)
[2017-10-15 06:28] LABS: WHITE BLOOD COUNT 9.7 10^3/ul (4.8-10.8)
[2017-10-15 06:50] LABS: ALANINE AMINOTRANSFERASE 143 IU/L (13-69); ALBUMIN 2.9 g/dl (3.3-4.9); ALBUMIN/GLOBULIN RATIO 0.85; ALKALINE PHOSPHATASE 151 IU/L (42-121); ANION GAP 10 (8-16); ASPARTATE AMINO TRANSFERASE 172 IU/L (15-46); BILIRUBIN,INDIRECT 0.4 mg/dl (0-1.1); BILIRUBIN,TOTAL 0.4 mg/dl (0.2-1.3); BLOOD UREA NITROGEN 20 mg/dl (7-20); CALCIUM 9.6 mg/dl (8.4-10.2); CARBON DIOXIDE 26 mmol/L (21-31); CHLORIDE 105 mmol/L (97-110); CREATININE 0.74 mg/dl (0.61-1.24); GLUCOSE 107 mg/dl (70-220); POTASSIUM 4.4 mmol/L (3.5-5.1); SODIUM 137 mmol/L (135-144); TOTAL PROTEIN 6.3 g/dl (6.1-8.1)
[2017-10-15] MEDS: TRIAMCINOLONE ACET 0.1% 15 GM CR TOP ×2 (09:00→21:00)
[2017-10-15] MEDS: FOLIC ACID 1 MG TAB PO (09:01)
[2017-10-15] MEDS: FERROUS SULFATE (EC) 325 MG TAB PO ×2 (09:01→20:56)
[2017-10-15] MEDS: DULOXETINE 30 MG CAP DR PO (09:02)
[2017-10-15] MEDS: ZINC SULFATE 220 MG CAP PO (09:03)
[2017-10-15] MEDS: FUROSEMIDE 20 MG TAB PO (09:04)
[2017-10-15] MEDS: SPIRONOLACTONE 50 MG TAB PO (09:04)
[2017-10-15] MEDS: CEFEPIME 1GM/50 ML (PMX) 50 ML IVPB ×2 (09:04→20:56)
[2017-10-15] MEDS: LIDOCAINE 5% PATCH TD (09:07)
[2017-10-16 05:28] LABS: ADD MAN DIFF? NO
[2017-10-16] MEDS: CYCLOBENZAPRINE 10 MG TAB PO ×3 (05:28→20:57)
[2017-10-16] MEDS: metroNIDAZOLE 250 MG TAB PO ×3 (05:28→20:57)
[2017-10-16 05:37] LABS: BASOPHIL # 0.1 10^3/ul (0.0-0.1); BASOPHILS % 0.5 % (0.0-2.0); EOSINOPHILS # 0.2 10^3/ul (0.0-0.5); EOSINOPHILS % 2.2 % (0.0-7.0); HEMATOCRIT 27.6 % (42.0-52.0); HEMOGLOBIN 9.4 g/dl (14.0-18.0); LYMPHOCYTES # 1.3 10^3/ul (0.8-2.9); LYMPHOCYTES % 13.8 % (15.0-51.0); MEAN CORPUSCULAR HEMOGLOBIN 32.3 pg (29.0-33.0); MEAN CORPUSCULAR HGB CONC 34.1 g/dl (32.0-37.0); MEAN CORPUSCULAR VOLUME 94.8 fl (82.0-101.0); MONOCYTE # 1.4 10^3/ul (0.3-0.9); MONOCYTES % 14.8 % (0.0-11.0); NEUTROPHIL # 6.6 10^3/ul (1.6-7.5); NEUTROPHILS % 68.3 % (39.0-77.0); PLATELET COUNT 112 10^3/UL (140-415); RED BLOOD COUNT 2.91 10^6/ul (4.70-6.10); RED CELL DISTRIBUTION WIDTH 15.9 % (11.5-14.5)
[2017-10-16 05:37] LABS: WHITE BLOOD COUNT 9.6 10^3/ul (4.8-10.8)
[2017-10-16 06:06] LABS: VANCOMYCIN,TROUGH 17.7 ug/ml (10.0-20.0)
[2017-10-16 06:06] LABS: ALANINE AMINOTRANSFERASE 131 IU/L (13-69); ALBUMIN/GLOBULIN RATIO 0.85; ALKALINE PHOSPHATASE 216 IU/L (42-121); ANION GAP 12 (8-16); ASPARTATE AMINO TRANSFERASE 105 IU/L (15-46); BILIRUBIN,INDIRECT 0.5 mg/dl (0-1.1); BILIRUBIN,TOTAL 0.5 mg/dl (0.2-1.3); BLOOD UREA NITROGEN 19 mg/dl (7-20); CALCIUM 9.6 mg/dl (8.4-10.2); CARBON DIOXIDE 25 mmol/L (21-31); CHLORIDE 103 mmol/L (97-110); CREATININE 0.67 mg/dl (0.61-1.24); GLUCOSE 113 mg/dl (70-220); POTASSIUM 4.2 mmol/L (3.5-5.1); SODIUM 136 mmol/L (135-144); TOTAL PROTEIN 6.5 g/dl (6.1-8.1)
[2017-10-16] MEDS: VANCOMYCIN 1.25 GM in SOD CHLORIDE 0.45% 250 ML IVPB (06:16)
[2017-10-16] MEDS: CEFEPIME 1GM/50 ML (PMX) 50 ML IVPB ×2 (08:30→20:52)
[2017-10-16] MEDS: FUROSEMIDE 20 MG TAB PO (08:31)
[2017-10-16] MEDS: FERROUS SULFATE (EC) 325 MG TAB PO ×2 (08:31→20:52)
[2017-10-16] MEDS: ZINC SULFATE 220 MG CAP PO (08:32)
[2017-10-16] MEDS: DULOXETINE 30 MG CAP DR PO (08:32)
[2017-10-16] MEDS: FOLIC ACID 1 MG TAB PO (08:32)
[2017-10-16] MEDS: SPIRONOLACTONE 50 MG TAB PO (08:32)
[2017-10-16] MEDS: LIDOCAINE 5% PATCH TD (08:33)
[2017-10-16] MEDS: IBUPROFEN 400 MG TAB PO (11:55)
[2017-10-16] MEDS: TRIAMCINOLONE ACET 0.1% 15 GM CR TOP ×2 (11:55→20:52)
[2017-10-16] MEDS: HYDROmorphONE 0.2 MG/ML PCA IV ×2 (14:11→23:36)
[2017-10-16] MEDS: VANCOMYCIN 1 GM 250 ML IVPB (18:09)
[2017-10-17] MEDS: CYCLOBENZAPRINE 10 MG TAB PO ×3 (05:22→22:24)
[2017-10-17] MEDS: metroNIDAZOLE 250 MG TAB PO ×3 (05:22→22:24)
[2017-10-17] MEDS: VANCOMYCIN 1 GM 250 ML IVPB ×2 (05:22→17:29)
[2017-10-17 05:55] LABS: ADD MAN DIFF? NO
[2017-10-17 05:58] LABS: BASOPHIL # 0.1 10^3/ul (0.0-0.1); BASOPHILS % 0.6 % (0.0-2.0); EOSINOPHILS # 0.4 10^3/ul (0.0-0.5); EOSINOPHILS % 4.6 % (0.0-7.0); HEMATOCRIT 27.9 % (42.0-52.0); HEMOGLOBIN 9.4 g/dl (14.0-18.0); LYMPHOCYTES # 1.4 10^3/ul (0.8-2.9); LYMPHOCYTES % 17.1 % (15.0-51.0); MEAN CORPUSCULAR HEMOGLOBIN 32.1 pg (29.0-33.0); MEAN CORPUSCULAR HGB CONC 33.7 g/dl (32.0-37.0); MEAN CORPUSCULAR VOLUME 95.2 fl (82.0-101.0); MEAN PLATELET VOLUME 9.8 fl (7.4-10.4); MONOCYTE # 1.3 10^3/ul (0.3-0.9); MONOCYTES % 16.3 % (0.0-11.0); NEUTROPHIL # 4.9 10^3/ul (1.6-7.5); NEUTROPHILS % 60.7 % (39.0-77.0); PLATELET COUNT 131 10^3/UL (140-415); RED BLOOD COUNT 2.93 10^6/ul (4.70-6.10); RED CELL DISTRIBUTION WIDTH 15.9 % (11.5-14.5)
[2017-10-17 05:58] LABS: WHITE BLOOD COUNT 8.1 10^3/ul (4.8-10.8)
[2017-10-17 07:09] LABS: ALANINE AMINOTRANSFERASE 102 IU/L (13-69); ALBUMIN/GLOBULIN RATIO 0.88; ALKALINE PHOSPHATASE 226 IU/L (42-121); ANION GAP 12 (8-16); ASPARTATE AMINO TRANSFERASE 63 IU/L (15-46); BILIRUBIN,INDIRECT 0.5 mg/dl (0-1.1); BILIRUBIN,TOTAL 0.5 mg/dl (0.2-1.3); BLOOD UREA NITROGEN 17 mg/dl (7-20); CALCIUM 9.5 mg/dl (8.4-10.2); CARBON DIOXIDE 25 mmol/L (21-31); CHLORIDE 103 mmol/L (97-110); CREATININE 0.68 mg/dl (0.61-1.24); GLUCOSE 106 mg/dl (70-220); SODIUM 136 mmol/L (135-144); TOTAL PROTEIN 6.4 g/dl (6.1-8.1)
[2017-10-17] MEDS: CEFEPIME 1GM/50 ML (PMX) 50 ML IVPB (08:57)
[2017-10-17] MEDS: FUROSEMIDE 20 MG TAB PO (08:59)
[2017-10-17] MEDS: TRIAMCINOLONE ACET 0.1% 15 GM CR TOP ×2 (08:59→20:48)
[2017-10-17] MEDS: DULOXETINE 30 MG CAP DR PO (08:59)
[2017-10-17] MEDS: ZINC SULFATE 220 MG CAP PO (08:59)
[2017-10-17] MEDS: FERROUS SULFATE (EC) 325 MG TAB PO ×2 (08:59→20:48)
[2017-10-17] MEDS: LIDOCAINE 5% PATCH TD (08:59)
[2017-10-17] MEDS: FOLIC ACID 1 MG TAB PO (09:00)
[2017-10-17] MEDS: SPIRONOLACTONE 50 MG TAB PO (09:00)
[2017-10-17] MEDS: HYDROmorphONE 0.2 MG/ML PCA IV ×2 (11:00→20:32)
[2017-10-17] MEDS: CEFTRIAXONE 1 GM/50 ML (PMX) 50 ML IVPB (13:54)
[2017-10-18] MEDS: metroNIDAZOLE 250 MG TAB PO ×3 (05:21→21:27)
[2017-10-18] MEDS: CYCLOBENZAPRINE 10 MG TAB PO ×3 (05:21→21:27)
[2017-10-18] MEDS: VANCOMYCIN 1 GM 250 ML IVPB ×2 (05:22→17:42)
[2017-10-18 06:26] LABS: ALANINE AMINOTRANSFERASE 85 IU/L (13-69); ALBUMIN 2.8 g/dl (3.3-4.9); ALBUMIN/GLOBULIN RATIO 0.82; ALKALINE PHOSPHATASE 248 IU/L (42-121); ANION GAP 11 (8-16); ASPARTATE AMINO TRANSFERASE 48 IU/L (15-46); BILIRUBIN,INDIRECT 0.2 mg/dl (0-1.1); BILIRUBIN,TOTAL 0.2 mg/dl (0.2-1.3); BLOOD UREA NITROGEN 14 mg/dl (7-20); CALCIUM 9.3 mg/dl (8.4-10.2); CARBON DIOXIDE 25 mmol/L (21-31); CHLORIDE 103 mmol/L (97-110); CREATININE 0.65 mg/dl (0.61-1.24); GLUCOSE 101 mg/dl (70-220); SODIUM 135 mmol/L (135-144); TOTAL PROTEIN 6.2 g/dl (6.1-8.1)
[2017-10-18] MEDS: ZINC SULFATE 220 MG CAP PO (08:26)
[2017-10-18] MEDS: FUROSEMIDE 20 MG TAB PO (08:26)
[2017-10-18] MEDS: LIDOCAINE 5% PATCH TD (08:26)
[2017-10-18] MEDS: TRIAMCINOLONE ACET 0.1% 15 GM CR TOP ×2 (08:28→20:12)
[2017-10-18] MEDS: FERROUS SULFATE (EC) 325 MG TAB PO ×2 (08:28→20:12)
[2017-10-18] MEDS: DULOXETINE 30 MG CAP DR PO (08:28)
[2017-10-18] MEDS: FOLIC ACID 1 MG TAB PO (08:28)
[2017-10-18] MEDS: SPIRONOLACTONE 50 MG TAB PO (08:30)
[2017-10-18] MEDS: HYDROmorphONE 0.2 MG/ML PCA IV (10:57)
[2017-10-18] MEDS: CEFTRIAXONE 1 GM/50 ML (PMX) 50 ML IVPB (14:23)
[2017-10-19] MEDS: HYDROmorphONE 0.2 MG/ML PCA IV ×2 (00:37→09:28)
[2017-10-19] MEDS: CYCLOBENZAPRINE 10 MG TAB PO ×3 (05:53→22:54)
[2017-10-19] MEDS: metroNIDAZOLE 250 MG TAB PO ×3 (05:53→22:53)
[2017-10-19 06:10] LABS: ADD MAN DIFF? NO
[2017-10-19 06:13] LABS: WHITE BLOOD COUNT 8.3 10^3/ul (4.8-10.8)
[2017-10-19 06:13] LABS: BASOPHIL # 0.1 10^3/ul (0.0-0.1); BASOPHILS % 0.6 % (0.0-2.0); EOSINOPHILS # 0.4 10^3/ul (0.0-0.5); EOSINOPHILS % 5.3 % (0.0-7.0); HEMATOCRIT 29.3 % (42.0-52.0); HEMOGLOBIN 9.8 g/dl (14.0-18.0); LYMPHOCYTES # 1.4 10^3/ul (0.8-2.9); LYMPHOCYTES % 16.3 % (15.0-51.0); MEAN CORPUSCULAR HGB CONC 33.4 g/dl (32.0-37.0); MEAN CORPUSCULAR VOLUME 95.8 fl (82.0-101.0); MEAN PLATELET VOLUME 10.2 fl (7.4-10.4); MONOCYTE # 1.1 10^3/ul (0.3-0.9); MONOCYTES % 13.3 % (0.0-11.0); NEUTROPHIL # 5.3 10^3/ul (1.6-7.5); NEUTROPHILS % 63.5 % (39.0-77.0); PLATELET COUNT 174 10^3/UL (140-415); RED BLOOD COUNT 3.06 10^6/ul (4.70-6.10); RED CELL DISTRIBUTION WIDTH 15.7 % (11.5-14.5)
[2017-10-19 06:41] LABS: ALANINE AMINOTRANSFERASE 67 IU/L (13-69); ALBUMIN 2.9 g/dl (3.3-4.9); ALBUMIN/GLOBULIN RATIO 0.85; ALKALINE PHOSPHATASE 215 IU/L (42-121); ANION GAP 13 (8-16); ASPARTATE AMINO TRANSFERASE 32 IU/L (15-46); BILIRUBIN,INDIRECT 0.1 mg/dl (0-1.1); BILIRUBIN,TOTAL 0.1 mg/dl (0.2-1.3); BLOOD UREA NITROGEN 17 mg/dl (7-20); CALCIUM 9.3 mg/dl (8.4-10.2); CARBON DIOXIDE 25 mmol/L (21-31); CHLORIDE 104 mmol/L (97-110); CREATININE 0.78 mg/dl (0.61-1.24); GLUCOSE 138 mg/dl (70-220); POTASSIUM 3.9 mmol/L (3.5-5.1); SODIUM 138 mmol/L (135-144); TOTAL PROTEIN 6.3 g/dl (6.1-8.1)
[2017-10-19 06:44] LABS: VANCOMYCIN,TROUGH 14.5 ug/ml (10.0-20.0)
[2017-10-19] MEDS: VANCOMYCIN 1 GM 250 ML IVPB ×2 (08:19→17:40)
[2017-10-19] MEDS: ZINC SULFATE 220 MG CAP PO (08:20)
[2017-10-19] MEDS: DULOXETINE 30 MG CAP DR PO (08:20)
[2017-10-19] MEDS: FOLIC ACID 1 MG TAB PO (08:20)
[2017-10-19] MEDS: LIDOCAINE 5% PATCH TD (08:20)
[2017-10-19] MEDS: SPIRONOLACTONE 50 MG TAB PO (08:21)
[2017-10-19] MEDS: FUROSEMIDE 20 MG TAB PO (08:21)
[2017-10-19] MEDS: FERROUS SULFATE (EC) 325 MG TAB PO ×2 (08:22→22:53)
[2017-10-19] MEDS: TRIAMCINOLONE ACET 0.1% 15 GM CR TOP ×2 (08:22→22:55)
[2017-10-19] MEDS: CEFTRIAXONE 1 GM/50 ML (PMX) 50 ML IVPB (14:30)
[2017-10-19] MEDS: HYDROmorphONE 2 MG/ML SYG IV ×2 (17:40→22:54)
[2017-10-20] MEDS: CEPASTAT LOZENGE MT (01:27)
[2017-10-20] MEDS: HYDROmorphONE 2 MG/ML SYG IV ×2 (02:59→18:44)
[2017-10-20] MEDS ORDERED: HYDROmorphONE 0.5 MG/0.5 ML SYG IV (04:00)
[2017-10-20] MEDS ORDERED: HYDROCODONE/APAP (5/325) TAB PO (04:00)
[2017-10-20] MEDS ORDERED: ONDANSETRON 4 MG INJ IV (04:00)
[2017-10-20 06:10] LABS: ALANINE AMINOTRANSFERASE 61 IU/L (13-69); ALBUMIN 3.1 g/dl (3.3-4.9); ALBUMIN/GLOBULIN RATIO 0.91; ALKALINE PHOSPHATASE 233 IU/L (42-121); ANION GAP 13 (8-16); ASPARTATE AMINO TRANSFERASE 32 IU/L (15-46); BILIRUBIN,INDIRECT 0.1 mg/dl (0-1.1); BILIRUBIN,TOTAL 0.1 mg/dl (0.2-1.3); BLOOD UREA NITROGEN 18 mg/dl (7-20); CALCIUM 9.3 mg/dl (8.4-10.2); CARBON DIOXIDE 23 mmol/L (21-31); CHLORIDE 106 mmol/L (97-110); CREATININE 0.73 mg/dl (0.61-1.24); GLUCOSE 106 mg/dl (70-220); POTASSIUM 4.4 mmol/L (3.5-5.1); SODIUM 138 mmol/L (135-144); TOTAL PROTEIN 6.5 g/dl (6.1-8.1)
[2017-10-20] MEDS: CYCLOBENZAPRINE 10 MG TAB PO ×3 (06:43→21:04)
[2017-10-20] MEDS: metroNIDAZOLE 250 MG TAB PO ×3 (06:43→21:04)
[2017-10-20] MEDS: VANCOMYCIN 1 GM 250 ML IVPB ×2 (06:43→17:47)
[2017-10-20] MEDS: TRIAMCINOLONE ACET 0.1% 15 GM CR TOP ×2 (09:37→21:05)
[2017-10-20] MEDS: LIDOCAINE 5% PATCH TD (09:38)
[2017-10-20] MEDS: ZINC SULFATE 220 MG CAP PO (09:39)
[2017-10-20] MEDS: FOLIC ACID 1 MG TAB PO (09:39)
[2017-10-20] MEDS: FUROSEMIDE 20 MG TAB PO (09:39)
[2017-10-20] MEDS: FERROUS SULFATE (EC) 325 MG TAB PO ×2 (09:39→21:04)
[2017-10-20] MEDS: DULOXETINE 30 MG CAP DR PO (09:39)
[2017-10-20] MEDS: SPIRONOLACTONE 50 MG TAB PO (09:39)
[2017-10-20] MEDS: HYDROmorphONE 1 MG/ML SYG IV ×2 (10:19→14:41)
[2017-10-20] MEDS: CEFTRIAXONE 1 GM/50 ML (PMX) 50 ML IVPB (13:36)
[2017-10-20] MEDS: ZOLPIDEM 5 MG TAB PO (21:52)
[2017-10-21] MEDS: HYDROmorphONE 2 MG/ML SYG IV ×5 (01:48→20:29)
[2017-10-21] MEDS: metroNIDAZOLE 250 MG TAB PO ×3 (06:21→21:47)
[2017-10-21] MEDS: VANCOMYCIN 1 GM 250 ML IVPB ×2 (06:21→17:00)
[2017-10-21] MEDS: CYCLOBENZAPRINE 10 MG TAB PO ×3 (06:21→21:47)
[2017-10-21] MEDS: SPIRONOLACTONE 50 MG TAB PO (08:24)
[2017-10-21] MEDS: FUROSEMIDE 20 MG TAB PO (08:24)
[2017-10-21] MEDS: DULOXETINE 30 MG CAP DR PO (08:24)
[2017-10-21] MEDS: ZINC SULFATE 220 MG CAP PO (08:24)
[2017-10-21] MEDS: FERROUS SULFATE (EC) 325 MG TAB PO ×2 (08:24→20:29)
[2017-10-21] MEDS: FOLIC ACID 1 MG TAB PO (08:24)
[2017-10-21] MEDS: LIDOCAINE 5% PATCH TD (08:24)
[2017-10-21] MEDS: TRIAMCINOLONE ACET 0.1% 15 GM CR TOP ×2 (08:25→20:35)
[2017-10-21] MEDS: CEFTRIAXONE 1 GM/50 ML (PMX) 50 ML IVPB (13:22)
[2017-10-21] MEDS: HYDROmorphONE 2 MG TAB PO (16:59)
[2017-10-21] MEDS: CEPASTAT LOZENGE MT (21:47)
[2017-10-22] MEDS: HYDROmorphONE 2 MG/ML SYG IV ×5 (01:57→21:23)
[2017-10-22] MEDS: CYCLOBENZAPRINE 10 MG TAB PO ×3 (05:43→21:16)
[2017-10-22] MEDS: metroNIDAZOLE 250 MG TAB PO ×3 (05:43→21:16)
[2017-10-22] MEDS: VANCOMYCIN 1 GM 250 ML IVPB ×2 (05:43→17:25)
[2017-10-22 05:44] LABS: ADD MAN DIFF? NO
[2017-10-22 05:47] LABS: WHITE BLOOD COUNT 9.7 10^3/ul (4.8-10.8)
[2017-10-22 05:47] LABS: BASOPHIL # 0.1 10^3/ul (0.0-0.1); BASOPHILS % 0.5 % (0.0-2.0); EOSINOPHILS # 0.4 10^3/ul (0.0-0.5); EOSINOPHILS % 4.2 % (0.0-7.0); HEMATOCRIT 27.6 % (42.0-52.0); HEMOGLOBIN 9.1 g/dl (14.0-18.0); LYMPHOCYTES # 1.2 10^3/ul (0.8-2.9); LYMPHOCYTES % 12.1 % (15.0-51.0); MEAN CORPUSCULAR HEMOGLOBIN 31.6 pg (29.0-33.0); MEAN CORPUSCULAR VOLUME 95.8 fl (82.0-101.0); MONOCYTE # 1.1 10^3/ul (0.3-0.9); MONOCYTES % 11.3 % (0.0-11.0); NEUTROPHIL # 6.9 10^3/ul (1.6-7.5); NEUTROPHILS % 71.5 % (39.0-77.0); PLATELET COUNT 182 10^3/UL (140-415); RED BLOOD COUNT 2.88 10^6/ul (4.70-6.10)
[2017-10-22 06:11] LABS: ANION GAP 13 (8-16); BLOOD UREA NITROGEN 14 mg/dl (7-20); CALCIUM 9.4 mg/dl (8.4-10.2); CARBON DIOXIDE 23 mmol/L (21-31); CHLORIDE 105 mmol/L (97-110); CREATININE 0.72 mg/dl (0.61-1.24); GLUCOSE 112 mg/dl (70-220); SODIUM 137 mmol/L (135-144)
[2017-10-22] MEDS: ZINC SULFATE 220 MG CAP PO (09:03)
[2017-10-22] MEDS: FUROSEMIDE 20 MG TAB PO (09:03)
[2017-10-22] MEDS: FOLIC ACID 1 MG TAB PO (09:03)
[2017-10-22] MEDS: SPIRONOLACTONE 50 MG TAB PO (09:03)
[2017-10-22] MEDS: DULOXETINE 30 MG CAP DR PO (09:03)
[2017-10-22] MEDS: FERROUS SULFATE (EC) 325 MG TAB PO ×2 (09:03→21:16)
[2017-10-22] MEDS: LIDOCAINE 5% PATCH TD (09:07)
[2017-10-22] MEDS: TRIAMCINOLONE ACET 0.1% 15 GM CR TOP ×2 (09:08→21:17)
[2017-10-22] MEDS ORDERED: VITAMIN A & D 5 GM OINT PACKET TOP (11:45)
[2017-10-22] MEDS: CEFTRIAXONE 1 GM/50 ML (PMX) 50 ML IVPB (14:17)
[2017-10-22] MEDS: ZOLPIDEM 5 MG TAB PO (21:56)
[2017-10-23] MEDS: HYDROmorphONE 2 MG/ML SYG IV (02:02)
[2017-10-23] MEDS: VANCOMYCIN 1 GM 250 ML IVPB (06:00)
[2017-10-23 06:23] LABS: VANCOMYCIN,TROUGH 19.1 ug/ml (10.0-20.0)
[2017-10-23] MEDS: CYCLOBENZAPRINE 10 MG TAB PO ×3 (06:37→21:13)
[2017-10-23] MEDS: metroNIDAZOLE 250 MG TAB PO ×3 (06:37→21:13)
[2017-10-23] MEDS: HYDROmorphONE 1 MG/ML SYG IV ×4 (06:38→21:38)
[2017-10-23] MEDS: DULOXETINE 30 MG CAP DR PO (08:40)
[2017-10-23] MEDS: FOLIC ACID 1 MG TAB PO (08:40)
[2017-10-23] MEDS: SPIRONOLACTONE 50 MG TAB PO (08:40)
[2017-10-23] MEDS: FUROSEMIDE 20 MG TAB PO (08:41)
[2017-10-23] MEDS: ZINC SULFATE 220 MG CAP PO (08:41)
[2017-10-23] MEDS: FERROUS SULFATE (EC) 325 MG TAB PO ×2 (08:41→21:13)
[2017-10-23] MEDS: TRIAMCINOLONE ACET 0.1% 15 GM CR TOP ×2 (08:43→21:14)
[2017-10-23] MEDS: LIDOCAINE 5% PATCH TD (08:43)
[2017-10-23] MEDS: VANCOMYCIN 750 MG in DEXTROSE 5% 150 ML IVPB ×2 (11:13→23:22)
[2017-10-23] MEDS: CEFTRIAXONE 1 GM/50 ML (PMX) 50 ML IVPB (14:06)
[2017-10-23] MEDS: ZOLPIDEM 5 MG TAB PO (23:21)
[2017-10-24] MEDS: HYDROmorphONE 1 MG/ML SYG IV ×2 (01:38→06:41)
[2017-10-24] MEDS: CYCLOBENZAPRINE 10 MG TAB PO ×3 (05:41→21:20)
[2017-10-24] MEDS: metroNIDAZOLE 250 MG TAB PO ×3 (05:41→21:20)
[2017-10-24] MEDS: SPIRONOLACTONE 50 MG TAB PO (08:24)
[2017-10-24] MEDS: FOLIC ACID 1 MG TAB PO (08:24)
[2017-10-24] MEDS: HYDROCODONE/APAP (5/325) TAB PO (08:24)
[2017-10-24] MEDS: FUROSEMIDE 20 MG TAB PO (08:25)
[2017-10-24] MEDS: FERROUS SULFATE (EC) 325 MG TAB PO ×2 (08:25→20:55)
[2017-10-24] MEDS: DULOXETINE 30 MG CAP DR PO (08:25)
[2017-10-24] MEDS: ZINC SULFATE 220 MG CAP PO (08:25)
[2017-10-24] MEDS: LIDOCAINE 5% PATCH TD (08:26)
[2017-10-24] MEDS: TRIAMCINOLONE ACET 0.1% 15 GM CR TOP ×2 (08:31→20:56)
[2017-10-24] MEDS: VANCOMYCIN 750 MG in DEXTROSE 5% 150 ML IVPB ×2 (11:14→23:10)
[2017-10-24] MEDS: HYDROmorphONE 2 MG/ML SYG IV ×2 (11:14→17:46)
[2017-10-24 12:00] LABS: ADD MAN DIFF? NO
[2017-10-24 12:01] LABS: WHITE BLOOD COUNT 7.8 10^3/ul (4.8-10.8)
[2017-10-24 12:01] LABS: BASOPHIL # 0.1 10^3/ul (0.0-0.1); BASOPHILS % 0.6 % (0.0-2.0); EOSINOPHILS # 0.5 10^3/ul (0.0-0.5); EOSINOPHILS % 6.1 % (0.0-7.0); HEMATOCRIT 30.4 % (42.0-52.0); LYMPHOCYTES # 1.3 10^3/ul (0.8-2.9); LYMPHOCYTES % 16.4 % (15.0-51.0); MEAN CORPUSCULAR HEMOGLOBIN 32.3 pg (29.0-33.0); MEAN CORPUSCULAR HGB CONC 32.9 g/dl (32.0-37.0); MEAN CORPUSCULAR VOLUME 98.1 fl (82.0-101.0); MEAN PLATELET VOLUME 9.2 fl (7.4-10.4); MONOCYTES % 12.9 % (0.0-11.0); NEUTROPHIL # 4.9 10^3/ul (1.6-7.5); NEUTROPHILS % 63.5 % (39.0-77.0); PLATELET COUNT 211 10^3/UL (140-415); RED CELL DISTRIBUTION WIDTH 15.3 % (11.5-14.5)
[2017-10-24 12:07] LABS: ANION GAP 11 (8-16); BLOOD UREA NITROGEN 14 mg/dl (7-20); CALCIUM 9.9 mg/dl (8.4-10.2); CARBON DIOXIDE 26 mmol/L (21-31); CHLORIDE 108 mmol/L (97-110); CREATININE 0.87 mg/dl (0.61-1.24); GLUCOSE 103 mg/dl (70-220); POTASSIUM 3.8 mmol/L (3.5-5.1); SODIUM 141 mmol/L (135-144)
[2017-10-24] MEDS: CEFTRIAXONE 1 GM/50 ML (PMX) 50 ML IVPB (14:41)
[2017-10-24] MEDS: ALTEPLASE (CATHFLO) 2 MG INJ CATHETER (18:15)
[2017-10-24] MEDS: ZOLPIDEM 5 MG TAB PO (21:20)
[2017-10-24 22:47] LABS: VANCOMYCIN,TROUGH 14.9 ug/ml (10.0-20.0)
[2017-10-25] MEDS: HYDROmorphONE 1 MG/ML SYG IV ×2 (01:29→07:39)
[2017-10-25] MEDS: metroNIDAZOLE 250 MG TAB PO ×3 (05:12→21:16)
[2017-10-25] MEDS: CYCLOBENZAPRINE 10 MG TAB PO ×3 (05:13→21:16)
[2017-10-25] MEDS: LIDOCAINE 5% PATCH TD (09:07)
[2017-10-25] MEDS: DULOXETINE 30 MG CAP DR PO (09:07)
[2017-10-25] MEDS: FUROSEMIDE 20 MG TAB PO (09:07)
[2017-10-25] MEDS: FERROUS SULFATE (EC) 325 MG TAB PO ×2 (09:07→21:16)
[2017-10-25] MEDS: FOLIC ACID 1 MG TAB PO (09:07)
[2017-10-25] MEDS: ZINC SULFATE 220 MG CAP PO (09:07)
[2017-10-25] MEDS: SPIRONOLACTONE 50 MG TAB PO (09:07)
[2017-10-25] MEDS: TRIAMCINOLONE ACET 0.1% 15 GM CR TOP ×2 (09:08→21:18)
[2017-10-25] MEDS: VANCOMYCIN 750 MG in DEXTROSE 5% 150 ML IVPB ×2 (11:27→23:24)
[2017-10-25] MEDS: HYDROmorphONE 2 MG/ML SYG IV ×3 (11:45→21:17)
[2017-10-25] MEDS: CEFTRIAXONE 1 GM/50 ML (PMX) 50 ML IVPB (14:12)
[2017-10-25] MEDS: HYDROCODONE/APAP (5/325) TAB PO ×2 (14:22→20:14)
[2017-10-25] MEDS ORDERED: BISACODYL (EC) 5 MG TAB PO (15:00)
[2017-10-25] MEDS: DOCUSATE SODIUM 100 MG CAP PO (21:17)
[2017-10-25] MEDS: ZOLPIDEM 5 MG TAB PO (23:24)
[2017-10-26] MEDS: HYDROCODONE/APAP (5/325) TAB PO ×4 (00:42→20:36)
[2017-10-26] MEDS: HYDROmorphONE 2 MG/ML SYG IV ×2 (01:54→05:46)
[2017-10-26] MEDS: CYCLOBENZAPRINE 10 MG TAB PO ×3 (05:35→21:16)
[2017-10-26] MEDS: metroNIDAZOLE 250 MG TAB PO ×3 (05:35→21:16)
[2017-10-26 05:46] LABS: ADD MAN DIFF? NO
[2017-10-26 05:54] LABS: BASOPHIL # 0.1 10^3/ul (0.0-0.1); EOSINOPHILS # 0.5 10^3/ul (0.0-0.5); EOSINOPHILS % 6.9 % (0.0-7.0); HEMATOCRIT 28.3 % (42.0-52.0); HEMOGLOBIN 9.6 g/dl (14.0-18.0); LYMPHOCYTES # 1.4 10^3/ul (0.8-2.9); LYMPHOCYTES % 20.3 % (15.0-51.0); MEAN CORPUSCULAR HEMOGLOBIN 32.4 pg (29.0-33.0); MEAN CORPUSCULAR HGB CONC 33.9 g/dl (32.0-37.0); MEAN CORPUSCULAR VOLUME 95.6 fl (82.0-101.0); MEAN PLATELET VOLUME 9.1 fl (7.4-10.4); MONOCYTE # 0.8 10^3/ul (0.3-0.9); MONOCYTES % 12.1 % (0.0-11.0); NEUTROPHIL # 4.1 10^3/ul (1.6-7.5); NEUTROPHILS % 59.3 % (39.0-77.0); PLATELET COUNT 194 10^3/UL (140-415); RED BLOOD COUNT 2.96 10^6/ul (4.70-6.10); RED CELL DISTRIBUTION WIDTH 14.7 % (11.5-14.5)
[2017-10-26 05:54] LABS: WHITE BLOOD COUNT 6.9 10^3/ul (4.8-10.8)
[2017-10-26 06:12] LABS: ANION GAP 13 (8-16); BLOOD UREA NITROGEN 18 mg/dl (7-20); CALCIUM 9.9 mg/dl (8.4-10.2); CARBON DIOXIDE 23 mmol/L (21-31); CHLORIDE 106 mmol/L (97-110); CREATININE 0.82 mg/dl (0.61-1.24); GLUCOSE 110 mg/dl (70-220); POTASSIUM 4.2 mmol/L (3.5-5.1); SODIUM 138 mmol/L (135-144)
[2017-10-26] MEDS: LIDOCAINE 5% PATCH TD (08:11)
[2017-10-26] MEDS: ZINC SULFATE 220 MG CAP PO (08:12)
[2017-10-26] MEDS: FUROSEMIDE 20 MG TAB PO (08:12)
[2017-10-26] MEDS: SPIRONOLACTONE 50 MG TAB PO (08:12)
[2017-10-26] MEDS: DULOXETINE 30 MG CAP DR PO (08:12)
[2017-10-26] MEDS: DOCUSATE SODIUM 100 MG CAP PO ×2 (08:13→20:35)
[2017-10-26] MEDS: FERROUS SULFATE (EC) 325 MG TAB PO ×2 (08:13→20:35)
[2017-10-26] MEDS: FOLIC ACID 1 MG TAB PO (08:13)
[2017-10-26] MEDS: TRIAMCINOLONE ACET 0.1% 15 GM CR TOP ×2 (08:15→20:46)
[2017-10-26] MEDS: VANCOMYCIN 750 MG in DEXTROSE 5% 150 ML IVPB ×2 (11:12→22:26)
[2017-10-26] MEDS: HYDROmorphONE 1 MG/ML SYG IV ×3 (11:23→21:16)
[2017-10-26] MEDS: CEFTRIAXONE 1 GM/50 ML (PMX) 50 ML IVPB (13:21)
[2017-10-26] MEDS: ZOLPIDEM 5 MG TAB PO (22:23)
[2017-10-27] MEDS: HYDROCODONE/APAP (5/325) TAB PO ×2 (01:11→17:32)
[2017-10-27] MEDS: HYDROmorphONE 2 MG/ML SYG IV ×3 (02:34→20:12)
[2017-10-27 05:40] LABS: ADD MAN DIFF? NO
[2017-10-27 05:41] LABS: WHITE BLOOD COUNT 6.3 10^3/ul (4.8-10.8)
[2017-10-27 05:41] LABS: BASOPHIL # 0.1 10^3/ul (0.0-0.1); EOSINOPHILS # 0.5 10^3/ul (0.0-0.5); EOSINOPHILS % 7.7 % (0.0-7.0); HEMATOCRIT 27.5 % (42.0-52.0); HEMOGLOBIN 9.1 g/dl (14.0-18.0); LYMPHOCYTES # 1.6 10^3/ul (0.8-2.9); MEAN CORPUSCULAR HEMOGLOBIN 31.4 pg (29.0-33.0); MEAN CORPUSCULAR HGB CONC 33.1 g/dl (32.0-37.0); MEAN CORPUSCULAR VOLUME 94.8 fl (82.0-101.0); MEAN PLATELET VOLUME 9.3 fl (7.4-10.4); MONOCYTE # 0.7 10^3/ul (0.3-0.9); MONOCYTES % 11.5 % (0.0-11.0); NEUTROPHIL # 3.4 10^3/ul (1.6-7.5); NEUTROPHILS % 54.3 % (39.0-77.0); PLATELET COUNT 178 10^3/UL (140-415); RED CELL DISTRIBUTION WIDTH 14.6 % (11.5-14.5)
[2017-10-27 06:08] LABS: ANION GAP 10 (8-16); BLOOD UREA NITROGEN 18 mg/dl (7-20); CALCIUM 9.5 mg/dl (8.4-10.2); CARBON DIOXIDE 25 mmol/L (21-31); CHLORIDE 105 mmol/L (97-110); CREATININE 0.81 mg/dl (0.61-1.24); GLUCOSE 95 mg/dl (70-220); POTASSIUM 4.3 mmol/L (3.5-5.1); SODIUM 136 mmol/L (135-144)
[2017-10-27] MEDS: metroNIDAZOLE 250 MG TAB PO ×3 (06:35→22:22)
[2017-10-27] MEDS: CYCLOBENZAPRINE 10 MG TAB PO ×3 (06:35→22:23)
[2017-10-27] MEDS: FERROUS SULFATE (EC) 325 MG TAB PO ×2 (08:35→20:12)
[2017-10-27] MEDS: FOLIC ACID 1 MG TAB PO (08:35)
[2017-10-27] MEDS: DOCUSATE SODIUM 100 MG CAP PO ×2 (08:35→20:12)
[2017-10-27] MEDS: ZINC SULFATE 220 MG CAP PO (08:35)
[2017-10-27] MEDS: SPIRONOLACTONE 50 MG TAB PO (08:35)
[2017-10-27] MEDS: DULOXETINE 30 MG CAP DR PO (08:35)
[2017-10-27] MEDS: FUROSEMIDE 20 MG TAB PO (08:35)
[2017-10-27] MEDS: LIDOCAINE 5% PATCH TD (08:36)
[2017-10-27] MEDS: TRIAMCINOLONE ACET 0.1% 15 GM CR TOP ×2 (08:36→20:18)
[2017-10-27] MEDS: HYDROmorphONE 1 MG/ML SYG IV ×2 (10:28→15:45)
[2017-10-27] MEDS: VANCOMYCIN 750 MG in DEXTROSE 5% 150 ML IVPB ×2 (10:28→22:26)
[2017-10-27] MEDS: CEFTRIAXONE 1 GM/50 ML (PMX) 50 ML IVPB (13:21)
[2017-10-27] MEDS: ZOLPIDEM 5 MG TAB PO (22:22)
[2017-10-28] MEDS: HYDROmorphONE 2 MG/ML SYG IV ×6 (02:06→23:59)
[2017-10-28 04:53] LABS: ADD MAN DIFF? NO
[2017-10-28 05:06] LABS: BASOPHIL # 0.1 10^3/ul (0.0-0.1); BASOPHILS % 0.9 % (0.0-2.0); EOSINOPHILS # 0.5 10^3/ul (0.0-0.5); EOSINOPHILS % 5.4 % (0.0-7.0); HEMATOCRIT 28.4 % (42.0-52.0); HEMOGLOBIN 9.6 g/dl (14.0-18.0); LYMPHOCYTES # 1.4 10^3/ul (0.8-2.9); LYMPHOCYTES % 16.2 % (15.0-51.0); MEAN CORPUSCULAR HEMOGLOBIN 31.5 pg (29.0-33.0); MEAN CORPUSCULAR HGB CONC 33.8 g/dl (32.0-37.0); MEAN CORPUSCULAR VOLUME 93.1 fl (82.0-101.0); MEAN PLATELET VOLUME 9.1 fl (7.4-10.4); MONOCYTE # 0.8 10^3/ul (0.3-0.9); MONOCYTES % 8.9 % (0.0-11.0); NEUTROPHIL # 5.8 10^3/ul (1.6-7.5); NEUTROPHILS % 68.2 % (39.0-77.0); PLATELET COUNT 177 10^3/UL (140-415); RED BLOOD COUNT 3.05 10^6/ul (4.70-6.10); RED CELL DISTRIBUTION WIDTH 14.6 % (11.5-14.5)
[2017-10-28 05:06] LABS: WHITE BLOOD COUNT 8.6 10^3/ul (4.8-10.8)
[2017-10-28 05:34] LABS: ANION GAP 14 (8-16); BLOOD UREA NITROGEN 17 mg/dl (7-20); CALCIUM 10.3 mg/dl (8.4-10.2); CARBON DIOXIDE 25 mmol/L (21-31); CHLORIDE 107 mmol/L (97-110); CREATININE 0.79 mg/dl (0.61-1.24); GLUCOSE 99 mg/dl (70-220); POTASSIUM 4.3 mmol/L (3.5-5.1); SODIUM 142 mmol/L (135-144)
[2017-10-28] MEDS: CYCLOBENZAPRINE 10 MG TAB PO ×3 (06:12→22:28)
[2017-10-28] MEDS: metroNIDAZOLE 250 MG TAB PO ×2 (06:12→14:12)
[2017-10-28] MEDS: LIDOCAINE 5% PATCH TD (09:08)
[2017-10-28] MEDS: DULOXETINE 30 MG CAP DR PO (09:09)
[2017-10-28] MEDS: ZINC SULFATE 220 MG CAP PO (09:09)
[2017-10-28] MEDS: FERROUS SULFATE (EC) 325 MG TAB PO ×2 (09:09→22:28)
[2017-10-28] MEDS: FOLIC ACID 1 MG TAB PO (09:09)
[2017-10-28] MEDS: DOCUSATE SODIUM 100 MG CAP PO ×2 (09:09→22:28)
[2017-10-28] MEDS: FUROSEMIDE 20 MG TAB PO (09:10)
[2017-10-28] MEDS: SPIRONOLACTONE 50 MG TAB PO (09:10)
[2017-10-28] MEDS: TRIAMCINOLONE ACET 0.1% 15 GM CR TOP ×2 (09:11→22:30)
[2017-10-28] MEDS: VANCOMYCIN 750 MG in DEXTROSE 5% 150 ML IVPB (11:23)
[2017-10-28] MEDS: CEFTRIAXONE 1 GM/50 ML (PMX) 50 ML IVPB (14:11)
[2017-10-28] MEDS: VANCOMYCIN HCL 250 MG/5ML POSYG PO (18:25)
[2017-10-28 23:15] LABS: VANCOMYCIN,TROUGH 15.4 ug/ml (10.0-20.0)
[2017-10-29] MEDS: VANCOMYCIN HCL 250 MG/5ML POSYG PO ×4 (00:09→17:27)
[2017-10-29 01:35] LABS: ADD MAN DIFF? NO
[2017-10-29 01:36] LABS: WHITE BLOOD COUNT 7.7 10^3/ul (4.8-10.8)
[2017-10-29 01:36] LABS: BASOPHIL # 0.1 10^3/ul (0.0-0.1); BASOPHILS % 0.9 % (0.0-2.0); EOSINOPHILS # 0.4 10^3/ul (0.0-0.5); EOSINOPHILS % 5.6 % (0.0-7.0); HEMATOCRIT 28.7 % (42.0-52.0); HEMOGLOBIN 9.6 g/dl (14.0-18.0); LYMPHOCYTES # 1.4 10^3/ul (0.8-2.9); LYMPHOCYTES % 17.5 % (15.0-51.0); MEAN CORPUSCULAR HEMOGLOBIN 31.6 pg (29.0-33.0); MEAN CORPUSCULAR HGB CONC 33.4 g/dl (32.0-37.0); MEAN CORPUSCULAR VOLUME 94.4 fl (82.0-101.0); MEAN PLATELET VOLUME 8.9 fl (7.4-10.4); MONOCYTES % 12.4 % (0.0-11.0); NEUTROPHIL # 4.9 10^3/ul (1.6-7.5); NEUTROPHILS % 63.2 % (39.0-77.0); PLATELET COUNT 168 10^3/UL (140-415); RED BLOOD COUNT 3.04 10^6/ul (4.70-6.10); RED CELL DISTRIBUTION WIDTH 14.4 % (11.5-14.5)
[2017-10-29] MEDS: HYDROmorphONE 2 MG/ML SYG IV ×4 (05:37→20:25)
[2017-10-29] MEDS: CYCLOBENZAPRINE 10 MG TAB PO ×3 (05:40→21:43)
[2017-10-29 06:20] LABS: ANION GAP 10 (8-16); BLOOD UREA NITROGEN 20 mg/dl (7-20); CALCIUM 10.6 mg/dl (8.4-10.2); CARBON DIOXIDE 24 mmol/L (21-31); CHLORIDE 106 mmol/L (97-110); CREATININE 0.78 mg/dl (0.61-1.24); GLUCOSE 101 mg/dl (70-220); POTASSIUM 4.3 mmol/L (3.5-5.1); SODIUM 136 mmol/L (135-144)
[2017-10-29] MEDS: FOLIC ACID 1 MG TAB PO (10:01)
[2017-10-29] MEDS: FUROSEMIDE 20 MG TAB PO (10:01)
[2017-10-29] MEDS: LIDOCAINE 5% PATCH TD (10:01)
[2017-10-29] MEDS: DULOXETINE 30 MG CAP DR PO (10:01)
[2017-10-29] MEDS: ZINC SULFATE 220 MG CAP PO (10:01)
[2017-10-29] MEDS: SPIRONOLACTONE 50 MG TAB PO (10:01)
[2017-10-29] MEDS: TRIAMCINOLONE ACET 0.1% 15 GM CR TOP ×2 (10:02→20:25)
[2017-10-29] MEDS: DOCUSATE SODIUM 100 MG CAP PO ×2 (10:02→20:25)
[2017-10-29] MEDS: FERROUS SULFATE (EC) 325 MG TAB PO ×2 (10:02→20:25)
[2017-10-29] MEDS: VANCOMYCIN 750 MG in DEXTROSE 5% 150 ML IVPB ×3 (11:59→22:43)
[2017-10-29] MEDS: CEFTRIAXONE 1 GM/50 ML (PMX) 50 ML IVPB (15:40)
[2017-10-29] MEDS: HYDROmorphONE 2 MG TAB PO (15:49)
[2017-10-29] MEDS: METOCLOPRAMIDE 10 MG INJ IV (15:49)
[2017-10-29] MEDS: ZOLPIDEM 5 MG TAB PO (21:43)
[2017-10-30] MEDS: VANCOMYCIN HCL 250 MG/5ML POSYG PO ×4 (00:02→20:17)
[2017-10-30] MEDS: HYDROmorphONE 2 MG/ML SYG IV ×5 (05:20→22:36)
[2017-10-30] MEDS: CYCLOBENZAPRINE 10 MG TAB PO ×3 (05:22→22:36)
[2017-10-30 05:52] LABS: ANION GAP 10 (8-16); BLOOD UREA NITROGEN 22 mg/dl (7-20); CALCIUM 10.7 mg/dl (8.4-10.2); CARBON DIOXIDE 24 mmol/L (21-31); CHLORIDE 106 mmol/L (97-110); CREATININE 0.82 mg/dl (0.61-1.24); GLUCOSE 95 mg/dl (70-220); POTASSIUM 4.6 mmol/L (3.5-5.1); SODIUM 135 mmol/L (135-144)
[2017-10-30] MEDS: ZINC SULFATE 220 MG CAP PO (09:29)
[2017-10-30] MEDS: FERROUS SULFATE (EC) 325 MG TAB PO ×2 (09:30→20:17)
[2017-10-30] MEDS: FUROSEMIDE 20 MG TAB PO (09:30)
[2017-10-30] MEDS: DOCUSATE SODIUM 100 MG CAP PO ×2 (09:30→20:17)
[2017-10-30] MEDS: SPIRONOLACTONE 50 MG TAB PO (09:30)
[2017-10-30] MEDS: FOLIC ACID 1 MG TAB PO (09:30)
[2017-10-30] MEDS: LIDOCAINE 5% PATCH TD (09:31)
[2017-10-30] MEDS: DULOXETINE 30 MG CAP DR PO (09:39)
[2017-10-30] MEDS: HYDROmorphONE 2 MG TAB PO ×2 (12:18→17:12)
[2017-10-30] MEDS: VANCOMYCIN 750 MG in DEXTROSE 5% 150 ML IVPB ×2 (12:20→22:37)
[2017-10-30] MEDS: TRIAMCINOLONE ACET 0.1% 15 GM CR TOP ×2 (12:24→20:18)
[2017-10-30] MEDS: CEFTRIAXONE 1 GM/50 ML (PMX) 50 ML IVPB (13:38)
[2017-10-31] MEDS: VANCOMYCIN HCL 250 MG/5ML POSYG PO ×5 (00:49→23:37)
[2017-10-31] MEDS: HYDROmorphONE 2 MG/ML SYG IV ×5 (03:34→22:08)
[2017-10-31] MEDS: CYCLOBENZAPRINE 10 MG TAB PO ×3 (05:34→22:08)
[2017-10-31 06:37] LABS: ADD MAN DIFF? NO
[2017-10-31 06:40] LABS: WHITE BLOOD COUNT 8.4 10^3/ul (4.8-10.8)
[2017-10-31 06:40] LABS: BASOPHIL # 0.1 10^3/ul (0.0-0.1); BASOPHILS % 1.1 % (0.0-2.0); EOSINOPHILS # 0.5 10^3/ul (0.0-0.5); EOSINOPHILS % 5.5 % (0.0-7.0); HEMATOCRIT 27.1 % (42.0-52.0); HEMOGLOBIN 9.2 g/dl (14.0-18.0); LYMPHOCYTES # 1.4 10^3/ul (0.8-2.9); LYMPHOCYTES % 16.6 % (15.0-51.0); MEAN CORPUSCULAR HEMOGLOBIN 31.9 pg (29.0-33.0); MEAN CORPUSCULAR HGB CONC 33.9 g/dl (32.0-37.0); MEAN CORPUSCULAR VOLUME 94.1 fl (82.0-101.0); MEAN PLATELET VOLUME 9.4 fl (7.4-10.4); MONOCYTE # 0.9 10^3/ul (0.3-0.9); NEUTROPHIL # 5.5 10^3/ul (1.6-7.5); NEUTROPHILS % 65.6 % (39.0-77.0); PLATELET COUNT 160 10^3/UL (140-415); RED BLOOD COUNT 2.88 10^6/ul (4.70-6.10); RED CELL DISTRIBUTION WIDTH 14.5 % (11.5-14.5)
[2017-10-31 07:15] LABS: ANION GAP 11 (8-16); BLOOD UREA NITROGEN 22 mg/dl (7-20); CALCIUM 11.1 mg/dl (8.4-10.2); CARBON DIOXIDE 25 mmol/L (21-31); CHLORIDE 107 mmol/L (97-110); CREATININE 0.88 mg/dl (0.61-1.24); GLUCOSE 101 mg/dl (70-220); POTASSIUM 4.3 mmol/L (3.5-5.1); SODIUM 139 mmol/L (135-144)
[2017-10-31] MEDS: DULOXETINE 30 MG CAP DR PO (09:25)
[2017-10-31] MEDS: LIDOCAINE 5% PATCH TD (09:25)
[2017-10-31] MEDS: FUROSEMIDE 20 MG TAB PO (09:25)
[2017-10-31] MEDS: ZINC SULFATE 220 MG CAP PO (09:26)
[2017-10-31] MEDS: DOCUSATE SODIUM 100 MG CAP PO ×2 (09:26→20:20)
[2017-10-31] MEDS: FOLIC ACID 1 MG TAB PO (09:26)
[2017-10-31] MEDS: SPIRONOLACTONE 50 MG TAB PO (09:26)
[2017-10-31] MEDS: FERROUS SULFATE (EC) 325 MG TAB PO ×2 (09:26→20:20)
[2017-10-31] MEDS: TRIAMCINOLONE ACET 0.1% 15 GM CR TOP ×2 (09:28→20:20)
[2017-10-31] MEDS: VANCOMYCIN 750 MG in DEXTROSE 5% 150 ML IVPB ×2 (12:27→23:37)
[2017-10-31] MEDS: CEFTRIAXONE 1 GM/50 ML (PMX) 50 ML IVPB (16:59)
[2017-10-31] MEDS: HYDROCODONE/APAP (5/325) TAB PO (20:19)
[2017-11-01] MEDS: HYDROCODONE/APAP (5/325) TAB PO ×2 (01:28→20:58)
[2017-11-01] MEDS: HYDROmorphONE 2 MG/ML SYG IV ×4 (04:44→23:29)
[2017-11-01] MEDS: VANCOMYCIN HCL 250 MG/5ML POSYG PO ×4 (06:06→23:30)
[2017-11-01] MEDS: CYCLOBENZAPRINE 10 MG TAB PO ×3 (06:07→20:58)
[2017-11-01] MEDS: FOLIC ACID 1 MG TAB PO (08:25)
[2017-11-01] MEDS: SPIRONOLACTONE 50 MG TAB PO (08:25)
[2017-11-01] MEDS: LIDOCAINE 5% PATCH TD (08:25)
[2017-11-01] MEDS: DULOXETINE 30 MG CAP DR PO (08:25)
[2017-11-01] MEDS: ZINC SULFATE 220 MG CAP PO (08:26)
[2017-11-01] MEDS: FERROUS SULFATE (EC) 325 MG TAB PO ×2 (08:26→20:10)
[2017-11-01] MEDS: DOCUSATE SODIUM 100 MG CAP PO ×2 (08:26→20:10)
[2017-11-01] MEDS: FUROSEMIDE 20 MG TAB PO (08:26)
[2017-11-01 11:05] LABS: VANCOMYCIN,TROUGH 17.8 ug/ml (10.0-20.0)
[2017-11-01] MEDS: TRIAMCINOLONE ACET 0.1% 15 GM CR TOP ×2 (11:21→20:11)
[2017-11-01] MEDS: VANCOMYCIN 750 MG in DEXTROSE 5% 150 ML IVPB (11:21)
[2017-11-01] MEDS: CEFTRIAXONE 1 GM/50 ML (PMX) 50 ML IVPB (13:52)
[2017-11-01] MEDS: ZOLPIDEM 5 MG TAB PO (22:17)
[2017-11-01] MEDS: VANCOMYCIN 500MG/NS (PMX) 100 ML IVPB (23:30)
[2017-11-02] MEDS: HYDROmorphONE 2 MG/ML SYG IV ×5 (05:32→18:49)
[2017-11-02] MEDS: VANCOMYCIN HCL 250 MG/5ML POSYG PO ×3 (05:41→17:30)
[2017-11-02] MEDS: CYCLOBENZAPRINE 10 MG TAB PO ×3 (05:41→22:08)
[2017-11-02 07:11] LABS: ADD MAN DIFF? NO
[2017-11-02 07:15] LABS: BASOPHIL # 0.1 10^3/ul (0.0-0.1); BASOPHILS % 1.1 % (0.0-2.0); EOSINOPHILS # 0.5 10^3/ul (0.0-0.5); EOSINOPHILS % 8.6 % (0.0-7.0); HEMATOCRIT 28.1 % (42.0-52.0); HEMOGLOBIN 9.8 g/dl (14.0-18.0); LYMPHOCYTES # 1.5 10^3/ul (0.8-2.9); LYMPHOCYTES % 24.8 % (15.0-51.0); MEAN CORPUSCULAR HEMOGLOBIN 32.6 pg (29.0-33.0); MEAN CORPUSCULAR HGB CONC 34.9 g/dl (32.0-37.0); MEAN CORPUSCULAR VOLUME 93.4 fl (82.0-101.0); MEAN PLATELET VOLUME 9.7 fl (7.4-10.4); MONOCYTE # 0.7 10^3/ul (0.3-0.9); MONOCYTES % 11.8 % (0.0-11.0); NEUTROPHIL # 3.3 10^3/ul (1.6-7.5); NEUTROPHILS % 53.4 % (39.0-77.0); PLATELET COUNT 171 10^3/UL (140-415); RED BLOOD COUNT 3.01 10^6/ul (4.70-6.10); RED CELL DISTRIBUTION WIDTH 14.3 % (11.5-14.5)
[2017-11-02 07:15] LABS: WHITE BLOOD COUNT 6.2 10^3/ul (4.8-10.8)
[2017-11-02] MEDS: HYDROCODONE/APAP (5/325) TAB PO ×4 (07:30→22:16)
[2017-11-02 07:39] LABS: ANION GAP 11 (8-16); BLOOD UREA NITROGEN 25 mg/dl (7-20); CALCIUM 11.5 mg/dl (8.4-10.2); CARBON DIOXIDE 24 mmol/L (21-31); CHLORIDE 109 mmol/L (97-110); CREATININE 0.97 mg/dl (0.61-1.24); GLUCOSE 96 mg/dl (70-220); SODIUM 140 mmol/L (135-144)
[2017-11-02] MEDS: FERROUS SULFATE (EC) 325 MG TAB PO ×2 (08:33→20:56)
[2017-11-02] MEDS: DULOXETINE 30 MG CAP DR PO (08:33)
[2017-11-02] MEDS: ZINC SULFATE 220 MG CAP PO (08:33)
[2017-11-02] MEDS: SPIRONOLACTONE 50 MG TAB PO (08:33)
[2017-11-02] MEDS: FOLIC ACID 1 MG TAB PO (08:33)
[2017-11-02] MEDS: DOCUSATE SODIUM 100 MG CAP PO ×2 (08:33→20:57)
[2017-11-02] MEDS: FUROSEMIDE 20 MG TAB PO (08:33)
[2017-11-02] MEDS: LIDOCAINE 5% PATCH TD (08:58)
[2017-11-02] MEDS: TRIAMCINOLONE ACET 0.1% 15 GM CR TOP ×2 (11:17→20:57)
[2017-11-02] MEDS: VANCOMYCIN 500MG/NS (PMX) 100 ML IVPB ×2 (11:18→22:08)
[2017-11-02] MEDS: CEFTRIAXONE 1 GM/50 ML (PMX) 50 ML IVPB (14:30)
[2017-11-02] MEDS: ALTEPLASE (CATHFLO) 2 MG INJ CATHETER (20:56)
[2017-11-03] MEDS: HYDROmorphONE 2 MG/ML SYG IV ×5 (00:09→22:08)
[2017-11-03] MEDS: VANCOMYCIN HCL 250 MG/5ML POSYG PO ×4 (00:09→17:12)
[2017-11-03] MEDS: HYDROCODONE/APAP (5/325) TAB PO ×3 (02:28→20:06)
[2017-11-03] MEDS: CYCLOBENZAPRINE 10 MG TAB PO ×3 (05:11→22:08)
[2017-11-03] MEDS: DULOXETINE 30 MG CAP DR PO (09:15)
[2017-11-03] MEDS: LIDOCAINE 5% PATCH TD (09:15)
[2017-11-03] MEDS: FUROSEMIDE 20 MG TAB PO (09:15)
[2017-11-03] MEDS: DOCUSATE SODIUM 100 MG CAP PO ×2 (09:15→20:05)
[2017-11-03] MEDS: ZINC SULFATE 220 MG CAP PO (09:15)
[2017-11-03] MEDS: SPIRONOLACTONE 50 MG TAB PO (09:15)
[2017-11-03] MEDS: FOLIC ACID 1 MG TAB PO (09:15)
[2017-11-03] MEDS: FERROUS SULFATE (EC) 325 MG TAB PO ×2 (09:15→20:06)
[2017-11-03] MEDS: TRIAMCINOLONE ACET 0.1% 15 GM CR TOP ×2 (09:18→20:07)
[2017-11-03] MEDS: VANCOMYCIN 500MG/NS (PMX) 100 ML IVPB (10:37)
[2017-11-03] MEDS ORDERED: ALTEPLASE (CATHFLO) 2 MG INJ CATHETER (12:00)
[2017-11-03] MEDS: CEFTRIAXONE 1 GM/50 ML (PMX) 50 ML IVPB (13:09)
[2017-11-03] MEDS ORDERED: HYDROmorphONE 2 MG TAB PO (15:00)
[2017-11-03 23:46] LABS: VANCOMYCIN,TROUGH 11.8 ug/ml (10.0-20.0)
[2017-11-04] MEDS: VANCOMYCIN 500MG/NS (PMX) 100 ML IVPB ×3 (00:16→23:38)
[2017-11-04] MEDS: ZOLPIDEM 5 MG TAB PO (00:17)
[2017-11-04] MEDS: VANCOMYCIN HCL 250 MG/5ML POSYG PO ×5 (00:17→23:37)
[2017-11-04] MEDS: CYCLOBENZAPRINE 10 MG TAB PO ×3 (06:07→21:50)
[2017-11-04] MEDS: HYDROmorphONE 2 MG/ML SYG IV ×4 (06:10→18:52)
[2017-11-04] MEDS: FUROSEMIDE 20 MG TAB PO (10:00)
[2017-11-04] MEDS: ZINC SULFATE 220 MG CAP PO (10:00)
[2017-11-04] MEDS: SPIRONOLACTONE 50 MG TAB PO (10:00)
[2017-11-04] MEDS: LIDOCAINE 5% PATCH TD (10:01)
[2017-11-04] MEDS: FOLIC ACID 1 MG TAB PO (10:01)
[2017-11-04] MEDS: FERROUS SULFATE (EC) 325 MG TAB PO ×2 (10:01→20:34)
[2017-11-04] MEDS: DULOXETINE 30 MG CAP DR PO (10:01)
[2017-11-04] MEDS: DOCUSATE SODIUM 100 MG CAP PO ×2 (10:01→20:34)
[2017-11-04] MEDS: TRIAMCINOLONE ACET 0.1% 15 GM CR TOP ×2 (12:32→20:35)
[2017-11-04] MEDS: CEFTRIAXONE 1 GM/50 ML (PMX) 50 ML IVPB (14:07)
[2017-11-05] MEDS: HYDROmorphONE 2 MG/ML SYG IV ×5 (00:32→23:35)
[2017-11-05] MEDS: CYCLOBENZAPRINE 10 MG TAB PO ×3 (05:41→21:48)
[2017-11-05] MEDS: VANCOMYCIN HCL 250 MG/5ML POSYG PO ×4 (05:49→23:33)
[2017-11-05 06:39] LABS: ADD MAN DIFF? NO
[2017-11-05 06:41] LABS: WHITE BLOOD COUNT 6.6 10^3/ul (4.8-10.8)
[2017-11-05 06:41] LABS: BASOPHIL # 0.1 10^3/ul (0.0-0.1); BASOPHILS % 1.5 % (0.0-2.0); EOSINOPHILS # 0.6 10^3/ul (0.0-0.5); EOSINOPHILS % 9.7 % (0.0-7.0); HEMATOCRIT 27.4 % (42.0-52.0); HEMOGLOBIN 9.5 g/dl (14.0-18.0); LYMPHOCYTES # 1.4 10^3/ul (0.8-2.9); LYMPHOCYTES % 20.7 % (15.0-51.0); MEAN CORPUSCULAR HEMOGLOBIN 32.3 pg (29.0-33.0); MEAN CORPUSCULAR HGB CONC 34.7 g/dl (32.0-37.0); MEAN CORPUSCULAR VOLUME 93.2 fl (82.0-101.0); MEAN PLATELET VOLUME 9.6 fl (7.4-10.4); MONOCYTE # 0.8 10^3/ul (0.3-0.9); MONOCYTES % 12.1 % (0.0-11.0); NEUTROPHIL # 3.7 10^3/ul (1.6-7.5); NEUTROPHILS % 55.7 % (39.0-77.0); NUCLEATED RED BLOOD CELLS% 0.3 /100WBC (0.0-0.0); PLATELET COUNT 161 10^3/UL (140-415); RED BLOOD COUNT 2.94 10^6/ul (4.70-6.10)
[2017-11-05 06:59] LABS: ANION GAP 10 (8-16); BLOOD UREA NITROGEN 19 mg/dl (7-20); CALCIUM 11.9 mg/dl (8.4-10.2); CARBON DIOXIDE 26 mmol/L (21-31); CHLORIDE 106 mmol/L (97-110); CREATININE 0.96 mg/dl (0.61-1.24); GLUCOSE 101 mg/dl (70-220); POTASSIUM 4.2 mmol/L (3.5-5.1); SODIUM 138 mmol/L (135-144)
[2017-11-05] MEDS: ZINC SULFATE 220 MG CAP PO (08:33)
[2017-11-05] MEDS: FOLIC ACID 1 MG TAB PO (08:33)
[2017-11-05] MEDS: SPIRONOLACTONE 50 MG TAB PO (08:33)
[2017-11-05] MEDS: DOCUSATE SODIUM 100 MG CAP PO ×2 (08:33→21:48)
[2017-11-05] MEDS: DULOXETINE 30 MG CAP DR PO (08:33)
[2017-11-05] MEDS: FERROUS SULFATE (EC) 325 MG TAB PO ×2 (08:33→21:48)
[2017-11-05] MEDS: FUROSEMIDE 20 MG TAB PO (08:33)
[2017-11-05] MEDS: LIDOCAINE 5% PATCH TD (08:34)
[2017-11-05] MEDS: TRIAMCINOLONE ACET 0.1% 15 GM CR TOP ×2 (08:35→21:48)
[2017-11-05] MEDS: VANCOMYCIN 500MG/NS (PMX) 100 ML IVPB ×2 (10:16→23:33)
[2017-11-05] MEDS: CEFTRIAXONE 1 GM/50 ML (PMX) 50 ML IVPB (13:10)
[2017-11-05] MEDS: CEPASTAT LOZENGE MT (23:33)
[2017-11-06] MEDS: HYDROmorphONE 2 MG/ML SYG IV ×4 (04:32→20:39)
[2017-11-06] MEDS: VANCOMYCIN HCL 250 MG/5ML POSYG PO ×4 (06:38→23:30)
[2017-11-06] MEDS: CYCLOBENZAPRINE 10 MG TAB PO ×3 (06:39→22:17)
[2017-11-06] MEDS: DOCUSATE SODIUM 100 MG CAP PO ×2 (08:51→20:38)
[2017-11-06] MEDS: ZINC SULFATE 220 MG CAP PO (08:51)
[2017-11-06] MEDS: FERROUS SULFATE (EC) 325 MG TAB PO ×2 (08:51→20:38)
[2017-11-06] MEDS: DULOXETINE 30 MG CAP DR PO (08:51)
[2017-11-06] MEDS: SPIRONOLACTONE 50 MG TAB PO (08:51)
[2017-11-06] MEDS: FOLIC ACID 1 MG TAB PO (08:51)
[2017-11-06] MEDS: FUROSEMIDE 20 MG TAB PO (08:52)
[2017-11-06] MEDS: LIDOCAINE 5% PATCH TD (08:52)
[2017-11-06] MEDS: TRIAMCINOLONE ACET 0.1% 15 GM CR TOP ×2 (08:53→20:39)
[2017-11-06] MEDS: VANCOMYCIN 500MG/NS (PMX) 100 ML IVPB ×2 (10:10→23:30)
[2017-11-06] MEDS: CEFTRIAXONE 1 GM/50 ML (PMX) 50 ML IVPB (13:13)
[2017-11-07] MEDS: HYDROmorphONE 2 MG/ML SYG IV ×5 (02:24→21:54)
[2017-11-07] MEDS: HYDROCODONE/APAP (5/325) TAB PO (03:29)
[2017-11-07] MEDS: CYCLOBENZAPRINE 10 MG TAB PO ×3 (05:13→21:54)
[2017-11-07] MEDS: VANCOMYCIN HCL 250 MG/5ML POSYG PO ×4 (05:13→23:34)
[2017-11-07 05:59] LABS: ADD MAN DIFF? NO
[2017-11-07 06:08] LABS: WHITE BLOOD COUNT 6.1 10^3/ul (4.8-10.8)
[2017-11-07 06:08] LABS: BASOPHIL # 0.1 10^3/ul (0.0-0.1); BASOPHILS % 1.3 % (0.0-2.0); EOSINOPHILS # 0.7 10^3/ul (0.0-0.5); EOSINOPHILS % 12.1 % (0.0-7.0); HEMATOCRIT 28.6 % (42.0-52.0); HEMOGLOBIN 9.7 g/dl (14.0-18.0); LYMPHOCYTES # 1.4 10^3/ul (0.8-2.9); LYMPHOCYTES % 22.7 % (15.0-51.0); MEAN CORPUSCULAR HEMOGLOBIN 32.3 pg (29.0-33.0); MEAN CORPUSCULAR HGB CONC 33.9 g/dl (32.0-37.0); MEAN CORPUSCULAR VOLUME 95.3 fl (82.0-101.0); MEAN PLATELET VOLUME 9.4 fl (7.4-10.4); MONOCYTE # 0.9 10^3/ul (0.3-0.9); MONOCYTES % 14.7 % (0.0-11.0); NEUTROPHILS % 48.9 % (39.0-77.0); PLATELET COUNT 151 10^3/UL (140-415); RED CELL DISTRIBUTION WIDTH 13.6 % (11.5-14.5)
[2017-11-07 06:53] LABS: ANION GAP 11 (8-16); BLOOD UREA NITROGEN 19 mg/dl (7-20); CALCIUM 11.8 mg/dl (8.4-10.2); CARBON DIOXIDE 27 mmol/L (21-31); CHLORIDE 106 mmol/L (97-110); CREATININE 1.02 mg/dl (0.61-1.24); GLUCOSE 104 mg/dl (70-220); POTASSIUM 4.2 mmol/L (3.5-5.1); SODIUM 140 mmol/L (135-144)
[2017-11-07] MEDS: FERROUS SULFATE (EC) 325 MG TAB PO ×2 (08:48→21:01)
[2017-11-07] MEDS: DOCUSATE SODIUM 100 MG CAP PO ×2 (08:48→21:01)
[2017-11-07] MEDS: LIDOCAINE 5% PATCH TD (08:48)
[2017-11-07] MEDS: ZINC SULFATE 220 MG CAP PO (08:49)
[2017-11-07] MEDS: DULOXETINE 30 MG CAP DR PO (08:49)
[2017-11-07] MEDS: SPIRONOLACTONE 50 MG TAB PO (08:49)
[2017-11-07] MEDS: FOLIC ACID 1 MG TAB PO (08:49)
[2017-11-07] MEDS: FUROSEMIDE 20 MG TAB PO (08:50)
[2017-11-07] MEDS: TRIAMCINOLONE ACET 0.1% 15 GM CR TOP ×2 (08:57→21:00)
[2017-11-07] MEDS: VANCOMYCIN 500MG/NS (PMX) 100 ML IVPB ×2 (13:36→23:35)
[2017-11-07] MEDS: CEFTRIAXONE 1 GM/50 ML (PMX) 50 ML IVPB (13:37)
[2017-11-08] MEDS: HYDROmorphONE 2 MG/ML SYG IV ×5 (02:13→22:01)
[2017-11-08] MEDS: CYCLOBENZAPRINE 10 MG TAB PO ×3 (05:53→21:55)
[2017-11-08] MEDS: VANCOMYCIN HCL 250 MG/5ML POSYG PO ×4 (05:53→23:52)
[2017-11-08] MEDS: SPIRONOLACTONE 50 MG TAB PO (09:44)
[2017-11-08] MEDS: DULOXETINE 30 MG CAP DR PO (09:44)
[2017-11-08] MEDS: LIDOCAINE 5% PATCH TD (09:44)
[2017-11-08] MEDS: DOCUSATE SODIUM 100 MG CAP PO ×2 (09:44→19:56)
[2017-11-08] MEDS: ZINC SULFATE 220 MG CAP PO (09:44)
[2017-11-08] MEDS: FERROUS SULFATE (EC) 325 MG TAB PO ×2 (09:44→19:56)
[2017-11-08] MEDS: FOLIC ACID 1 MG TAB PO (09:44)
[2017-11-08] MEDS: FUROSEMIDE 20 MG TAB PO (09:45)
[2017-11-08] MEDS: TRIAMCINOLONE ACET 0.1% 15 GM CR TOP ×2 (09:46→19:57)
[2017-11-08] MEDS: HYDROCODONE/APAP (5/325) TAB PO ×4 (10:13→23:52)
[2017-11-08 11:13] LABS: VANCOMYCIN,TROUGH 10.1 ug/ml (10.0-20.0)
[2017-11-08] MEDS: VANCOMYCIN 500MG/NS (PMX) 100 ML IVPB (11:58)
[2017-11-08] MEDS: CEFTRIAXONE 1 GM/50 ML (PMX) 50 ML IVPB (14:43)
[2017-11-08] MEDS: VANCOMYCIN 650 MG in DEXTROSE 5% 150 ML IVPB (21:55)
[2017-11-09] MEDS: HYDROmorphONE 2 MG/ML SYG IV ×3 (02:03→14:32)
[2017-11-09] MEDS: HYDROCODONE/APAP (5/325) TAB PO ×2 (04:15→08:57)
[2017-11-09 05:48] LABS: ADD MAN DIFF? NO
[2017-11-09 05:57] LABS: WHITE BLOOD COUNT 6.7 10^3/ul (4.8-10.8)
[2017-11-09 05:57] LABS: BASOPHIL # 0.1 10^3/ul (0.0-0.1); BASOPHILS % 1.3 % (0.0-2.0); EOSINOPHILS # 0.8 10^3/ul (0.0-0.5); EOSINOPHILS % 12.4 % (0.0-7.0); HEMATOCRIT 29.7 % (42.0-52.0); HEMOGLOBIN 10.2 g/dl (14.0-18.0); LYMPHOCYTES # 1.4 10^3/ul (0.8-2.9); LYMPHOCYTES % 20.4 % (15.0-51.0); MEAN CORPUSCULAR HEMOGLOBIN 32.6 pg (29.0-33.0); MEAN CORPUSCULAR HGB CONC 34.3 g/dl (32.0-37.0); MEAN CORPUSCULAR VOLUME 94.9 fl (82.0-101.0); MEAN PLATELET VOLUME 9.9 fl (7.4-10.4); MONOCYTES % 15.2 % (0.0-11.0); NEUTROPHIL # 3.4 10^3/ul (1.6-7.5); NEUTROPHILS % 50.6 % (39.0-77.0); PLATELET COUNT 151 10^3/UL (140-415); RED BLOOD COUNT 3.13 10^6/ul (4.70-6.10); RED CELL DISTRIBUTION WIDTH 13.5 % (11.5-14.5)
[2017-11-09] MEDS: CYCLOBENZAPRINE 10 MG TAB PO ×2 (05:59→14:32)
[2017-11-09] MEDS: VANCOMYCIN HCL 250 MG/5ML POSYG PO ×2 (05:59→14:32)
[2017-11-09 06:19] LABS: ANION GAP 12 (8-16); BLOOD UREA NITROGEN 21 mg/dl (7-20); CALCIUM 12.1 mg/dl (8.4-10.2); CARBON DIOXIDE 24 mmol/L (21-31); CHLORIDE 107 mmol/L (97-110); CREATININE 1.08 mg/dl (0.61-1.24); GLUCOSE 110 mg/dl (70-220); POTASSIUM 4.1 mmol/L (3.5-5.1); SODIUM 139 mmol/L (135-144)
[2017-11-09] MEDS: FUROSEMIDE 20 MG TAB PO (08:56)
[2017-11-09] MEDS: FERROUS SULFATE (EC) 325 MG TAB PO (08:56)
[2017-11-09] MEDS: ZINC SULFATE 220 MG CAP PO (08:56)
[2017-11-09] MEDS: DOCUSATE SODIUM 100 MG CAP PO (08:56)
[2017-11-09] MEDS: DULOXETINE 30 MG CAP DR PO (08:57)
[2017-11-09] MEDS: SPIRONOLACTONE 50 MG TAB PO (08:57)
[2017-11-09] MEDS: LIDOCAINE 5% PATCH TD (08:57)
[2017-11-09] MEDS: FOLIC ACID 1 MG TAB PO (08:57)
[2017-11-09] MEDS: TRIAMCINOLONE ACET 0.1% 15 GM CR TOP (09:02)
[2017-11-09] MEDS: VANCOMYCIN 650 MG in DEXTROSE 5% 150 ML IVPB (09:03)
[2017-11-09] MEDS: CEFTRIAXONE 1 GM/50 ML (PMX) 50 ML IVPB (14:32)
== END 2017-11-09 17:37 | disposition home health service (06) | DRG 472 ==
LOC: MS2 09-15 01:12 → ICU 10-12 14:03 → TEL 10-14 18:18 → PP2 10-16 22:00 → E/R 02:58 → MS2 05:52
PROC: 0RG20AJ Fusion of 2 or more Cervical Vertebral Joints with Interbody Fusion Device, Posterior Approach, Anterior Column, Open Approach (ICD-10-PCS; principal; 2017-10-12 08:00)
PROC: 01N10ZZ Release Cervical Nerve, Open Approach (ICD-10-PCS; 2017-10-12 08:00)
PROC: 02HV33Z Insertion of Infusion Device into Superior Vena Cava, Percutaneous Approach (ICD-10-PCS; 2017-10-12 08:25)
PROC: 30243N1 Transfusion of Nonautologous Red Blood Cells into Central Vein, Percutaneous Approach (ICD-10-PCS; 2017-10-12 08:25)
PROC: 0HQKXZZ Repair Right Lower Leg Skin, External Approach (ICD-10-PCS; 2017-10-12 08:25)
PROC: 3E0U33Z Introduction of Anti-inflammatory into Joints, Percutaneous Approach (ICD-10-PCS; 2017-10-12 08:25)
PROC: 3E0U3BZ Introduction of Anesthetic Agent into Joints, Percutaneous Approach (ICD-10-PCS; 2017-10-12 08:25)
DX: T87.89 Other complications of amputation stump (principal); N17.9 Acute kidney failure, unspecified; A04.72 Enterocolitis due to Clostridium difficile, not specified as recurrent; M50.01 Cervical disc disorder with myelopathy, high cervical region; D62 Acute posthemorrhagic anemia; L97.819 Non-pressure chronic ulcer of other part of right lower leg with unspecified severity; M46.22 Osteomyelitis of vertebra, cervical region; K74.69 Other cirrhosis of liver; S42.292A Other displaced fracture of upper end of left humerus, initial encounter for closed fracture; T87.43 Infection of amputation stump, right lower extremity; S81.811A Laceration without foreign body, right lower leg, initial encounter; E87.5 Hyperkalemia; I12.9 Hypertensive chronic kidney disease with stage 1 through stage 4 chronic kidney disease, or unspecified chronic kidney disease; N18.9 Chronic kidney disease, unspecified; B19.20 Unspecified viral hepatitis C without hepatic coma; D50.9 Iron deficiency anemia, unspecified; M75.42 Impingement syndrome of left shoulder; R60.0 Localized edema; F32.9 Major depressive disorder, single episode, unspecified; Z59.0 Homelessness; W06.XXXA Fall from bed, initial encounter; Y92.193 Bedroom in other specified residential institution as the place of occurrence of the external cause; M48.02 Spinal stenosis, cervical region; M54.12 Radiculopathy, cervical region; M47.22 Other spondylosis with radiculopathy, cervical region; M46.42 Discitis, unspecified, cervical region; R20.0 Anesthesia of skin
CPT/HCPCS: 36415; 36430; 36569; 71045; 72020; 72050; 72125; 72156; 73030; 76937; 80048; 80053; 80061; 80202; 81001; 82270; 82607; 82728; 82746; 83540; 83615; 83690; 84484; 85025; 85049; 85610; 85670; 85730; 86850; 86900; 86901; 86920; 87040; 87075; 87081; 87086; 93005; 93306; 93971; 96374; 96375; 96376; 97110; 97116; 97162; 97163; 97166; 97530; 97535; 97542; 99285-25

== ENCOUNTER 2018-11-18 18:40 | Inpatient (IN) | payer OTHER ==
[2018-11-18] MEDS ORDERED: DOCUSATE SODIUM 100 MG CAP PO (19:30)
[2018-11-18] MEDS ORDERED: MAGNESIUM HYDROXIDE 30ML CUP PO (19:30)
[2018-11-18] MEDS ORDERED: ALBUTEROL 0.083% (NEB) 2.5 MG/3 ML AMP NEB (19:30)
[2018-11-18] MEDS ORDERED: HYDROCODONE/APAP (5/325) TAB PO (19:30)
[2018-11-18] MEDS ORDERED: ONDANSETRON 4 MG INJ IV (19:30)
[2018-11-18] MEDS ORDERED: NACL 0.9% 3 ML SYG IV (19:30)
[2018-11-18] MEDS: ALBUTEROL 0.083% (NEB) 2.5 MG/3 ML AMP NEB (20:00)
[2018-11-18 21:05] LABS: ADD MAN DIFF? NO
[2018-11-18 21:08] LABS: WHITE BLOOD COUNT 15.1 10^3/ul (4.8-10.8)
[2018-11-18 21:08] LABS: BASOPHILS % 0.1 % (0.0-2.0); HEMATOCRIT 34.3 % (42.0-52.0); HEMOGLOBIN 11.1 g/dl (14.0-18.0); LYMPHOCYTES # 1.3 10^3/ul (0.8-2.9); LYMPHOCYTES % 8.3 % (15.0-51.0); MEAN CORPUSCULAR HEMOGLOBIN 28.2 pg (29.0-33.0); MEAN CORPUSCULAR HGB CONC 32.4 g/dl (32.0-37.0); MEAN CORPUSCULAR VOLUME 87.3 fl (82.0-101.0); MEAN PLATELET VOLUME 10.1 fl (7.4-10.4); MONOCYTES % 6.4 % (0.0-11.0); NEUTROPHIL # 12.8 10^3/ul (1.6-7.5); NEUTROPHILS % 84.7 % (39.0-77.0); PLATELET COUNT 192 10^3/UL (140-415); RED BLOOD COUNT 3.93 10^6/ul (4.70-6.10); RED CELL DISTRIBUTION WIDTH 16.8 % (11.5-14.5)
[2018-11-18 21:24] LABS: MAGNESIUM 1.8 mg/dl (1.7-2.5)
[2018-11-18 21:25] LABS: ALANINE AMINOTRANSFERASE 26 IU/L (13-69); ALBUMIN 3.2 g/dl (3.3-4.9); ALKALINE PHOSPHATASE 132 IU/L (42-121); ANION GAP 10 (5-13); ASPARTATE AMINO TRANSFERASE 47 IU/L (15-46); BLOOD UREA NITROGEN 16 mg/dl (7-20); CALCIUM 8.7 mg/dl (8.4-10.2); CARBON DIOXIDE 21 mmol/L (21-31); CHLORIDE 109 mmol/L (97-110); CREATININE 0.86 mg/dl (0.61-1.24); Estimated GFR > 60 mL/min (>60); GLUCOSE 160 mg/dl (70-220); POTASSIUM 4.8 mmol/L (3.5-5.1); SODIUM 140 mmol/L (135-144); TOTAL PROTEIN 7.2 g/dl (6.1-8.1)
[2018-11-18] MEDS: morphine 2 MG INJ IV (21:57)
[2018-11-18] MEDS: FERROUS SULFATE (EC) 325 MG TAB PO (22:00)
[2018-11-18] MEDS: METHYLPREDNISOLONE 40 MG INJ IV (22:00)
[2018-11-18] MEDS: AZITHROMYCIN 500MG/NS (PMX) 250 ML IV (22:01)
[2018-11-18] MEDS: CEFTRIAXONE 1 GM/50 ML (PMX) 50 ML IVPB (23:58)
[2018-11-19] MEDS: MAGNESIUM SULFATE 1 GM/D5W 100 ML IVPB (00:44)
[2018-11-19] MEDS: oxyCODONE 5 MG TAB PO ×3 (00:44→17:46)
[2018-11-19] MEDS: CYCLOBENZAPRINE 10 MG TAB PO ×3 (00:44→21:12)
[2018-11-19] MEDS: PANTOPRAZOLE (EC) 40 MG TAB PO (05:58)
[2018-11-19] MEDS: METHYLPREDNISOLONE 40 MG INJ IV ×3 (05:58→21:12)
[2018-11-19 06:09] LABS: ADD MAN DIFF? NO
[2018-11-19 06:12] LABS: BASOPHILS % 0.1 % (0.0-2.0); HEMATOCRIT 32.2 % (42.0-52.0); HEMOGLOBIN 10.5 g/dl (14.0-18.0); LYMPHOCYTES # 1.4 10^3/ul (0.8-2.9); LYMPHOCYTES % 8.7 % (15.0-51.0); MEAN CORPUSCULAR HEMOGLOBIN 28.6 pg (29.0-33.0); MEAN CORPUSCULAR HGB CONC 32.6 g/dl (32.0-37.0); MEAN CORPUSCULAR VOLUME 87.7 fl (82.0-101.0); MEAN PLATELET VOLUME 10.6 fl (7.4-10.4); MONOCYTE # 0.7 10^3/ul (0.3-0.9); MONOCYTES % 4.4 % (0.0-11.0); NEUTROPHIL # 13.4 10^3/ul (1.6-7.5); NEUTROPHILS % 86.4 % (39.0-77.0); PLATELET COUNT 179 10^3/UL (140-415); RED BLOOD COUNT 3.67 10^6/ul (4.70-6.10); RED CELL DISTRIBUTION WIDTH 16.9 % (11.5-14.5)
[2018-11-19 06:12] LABS: WHITE BLOOD COUNT 15.5 10^3/ul (4.8-10.8)
[2018-11-19 06:44] LABS: CHOL/HDL RATIO 2.9 RATIO; HDL CHOLESTEROL 41 mg/dl (28-71); LDL CHOLESTEROL,CALCULATED 66 mg/dl; TRIGLYCERIDES 62 mg/dl (0-149)
[2018-11-19 06:44] LABS: CHOLESTEROL 119 mg/dl (100-200)
[2018-11-19 07:03] LABS: ALANINE AMINOTRANSFERASE 22 IU/L (13-69); ALBUMIN 2.9 g/dl (3.3-4.9); ALKALINE PHOSPHATASE 114 IU/L (42-121); ANION GAP 10 (5-13); ASPARTATE AMINO TRANSFERASE 42 IU/L (15-46); BILIRUBIN,INDIRECT 0.1 mg/dl (0-1.1); BILIRUBIN,TOTAL 0.1 mg/dl (0.2-1.3); BLOOD UREA NITROGEN 18 mg/dl (7-20); CALCIUM 8.3 mg/dl (8.4-10.2); CARBON DIOXIDE 20 mmol/L (21-31); CHLORIDE 109 mmol/L (97-110); CREATININE 0.76 mg/dl (0.61-1.24); Estimated GFR > 60 mL/min (>60); GLUCOSE 154 mg/dl (70-220); MAGNESIUM 2.1 mg/dl (1.7-2.5); POTASSIUM 3.9 mmol/L (3.5-5.1); SODIUM 139 mmol/L (135-144); TOTAL PROTEIN 6.5 g/dl (6.1-8.1)
[2018-11-19 07:13] LABS: THYROID STIMULATING HORMONE 0.161 MIU/L (0.465-4.680)
[2018-11-19] MEDS: ALBUTEROL 0.083% (NEB) 2.5 MG/3 ML AMP NEB ×3 (07:32→21:09)
[2018-11-19] MEDS: METOPROLOL 50 MG TAB PO ×2 (09:37→21:13)
[2018-11-19] MEDS: FOLIC ACID 1 MG TAB PO (09:37)
[2018-11-19] MEDS: SPIRONOLACTONE 50 MG TAB PO (09:38)
[2018-11-19] MEDS: FUROSEMIDE 20 MG TAB PO (09:38)
[2018-11-19] MEDS: FERROUS SULFATE (EC) 325 MG TAB PO ×2 (09:38→21:13)
[2018-11-19] MEDS: ENOXAPARIN 40 MG/0.4 ML SYG SC (09:44)
[2018-11-19 10:01] LABS: LACTIC ACID 1.2 mmol/L (0.5-2.0)
[2018-11-19] MEDS: SERTRALINE 50 MG TAB PO (10:07)
[2018-11-19 11:29] LABS: ADD UMIC YES; UR ASCORBIC ACID NEGATIVE (NEGATIVE); UR BILIRUBIN (Dip) NEGATIVE (NEGATIVE); UR BLOOD (Dip) 1+ mg/dL (NEGATIVE); UR CLARITY CLEAR (CLEAR); UR COLOR YELLOW (YELLOW); UR GLUCOSE (Dip) NEGATIVE (NEGATIVE); UR KETONES (Dip) NEGATIVE (NEGATIVE); UR LEUKOCYTE ESTERASE (Dip) NEGATIVE Leu/ul (NEGATIVE); UR NITRITE (Dip) NEGATIVE (NEGATIVE); UR RBC 1 /HPF (0-5); UR SPECIFIC GRAVITY (Dip) 1.015 (1.003-1.030); UR TOTAL PROTEIN (Dip) NEGATIVE (NEGATIVE); UR UROBILINOGEN (Dip) NEGATIVE (NEGATIVE); UR WBC 0 /HPF (0-5)
[2018-11-19 14:46] LABS: HEMOGLOBIN A1C 5.5 % (0-5.9)
[2018-11-19] MEDS: DOCUSATE SODIUM 100 MG CAP PO (19:48)
[2018-11-19] MEDS: CEFTRIAXONE 1 GM/50 ML (PMX) 50 ML IVPB (19:49)
[2018-11-19] MEDS: AZITHROMYCIN 500MG/NS (PMX) 250 ML IV (21:13)
[2018-11-20] MEDS: oxyCODONE 5 MG TAB PO ×3 (01:41→18:23)
[2018-11-20 05:32] LABS: ADD MAN DIFF? NO
[2018-11-20 05:34] LABS: WHITE BLOOD COUNT 12.4 10^3/ul (4.8-10.8)
[2018-11-20 05:34] LABS: BASOPHILS % 0.1 % (0.0-2.0); HEMATOCRIT 33.3 % (42.0-52.0); HEMOGLOBIN 10.8 g/dl (14.0-18.0); LYMPHOCYTES # 1.2 10^3/ul (0.8-2.9); LYMPHOCYTES % 9.3 % (15.0-51.0); MEAN CORPUSCULAR HEMOGLOBIN 28.4 pg (29.0-33.0); MEAN CORPUSCULAR HGB CONC 32.4 g/dl (32.0-37.0); MEAN CORPUSCULAR VOLUME 87.6 fl (82.0-101.0); MEAN PLATELET VOLUME 10.8 fl (7.4-10.4); MONOCYTE # 0.8 10^3/ul (0.3-0.9); MONOCYTES % 6.3 % (0.0-11.0); NEUTROPHIL # 10.4 10^3/ul (1.6-7.5); NEUTROPHILS % 83.8 % (39.0-77.0); PLATELET COUNT 191 10^3/UL (140-415)
[2018-11-20] MEDS: METHYLPREDNISOLONE 40 MG INJ IV ×2 (06:06→14:56)
[2018-11-20] MEDS: PANTOPRAZOLE (EC) 40 MG TAB PO (06:06)
[2018-11-20 06:26] LABS: ANION GAP 9 (5-13); BLOOD UREA NITROGEN 22 mg/dl (7-20); CALCIUM 8.2 mg/dl (8.4-10.2); CARBON DIOXIDE 20 mmol/L (21-31); CHLORIDE 109 mmol/L (97-110); CREATININE 0.85 mg/dl (0.61-1.24); Estimated GFR > 60 mL/min (>60); GLUCOSE 213 mg/dl (70-220); PHOSPHORUS 3.4 mg/dl (2.5-4.9); POTASSIUM 3.8 mmol/L (3.5-5.1); SODIUM 138 mmol/L (135-144)
[2018-11-20 07:24] LABS: FREE T4 (FREE THYROXINE) 1.15 ng/dl (0.64-1.79)
[2018-11-20] MEDS: ALBUTEROL 0.083% (NEB) 2.5 MG/3 ML AMP NEB ×2 (08:00→13:40)
[2018-11-20] MEDS: CYCLOBENZAPRINE 10 MG TAB PO (08:40)
[2018-11-20] MEDS: SPIRONOLACTONE 50 MG TAB PO (08:40)
[2018-11-20] MEDS: FUROSEMIDE 20 MG TAB PO (08:41)
[2018-11-20] MEDS: DOCUSATE SODIUM 100 MG CAP PO (08:41)
[2018-11-20] MEDS: SERTRALINE 50 MG TAB PO (08:41)
[2018-11-20] MEDS: METOPROLOL 50 MG TAB PO (08:42)
[2018-11-20] MEDS: FOLIC ACID 1 MG TAB PO (08:42)
[2018-11-20] MEDS: FERROUS SULFATE (EC) 325 MG TAB PO (08:42)
[2018-11-20] MEDS: ENOXAPARIN 40 MG/0.4 ML SYG SC (08:44)
[2018-11-20] MEDS: DICLOFENAC SODIUM 1% GEL 100 GM TUBE TP (14:58)
[2018-11-20] MEDS: LIDOCAINE 5% PATCH TD (15:35)
[2018-11-24] MEDS ORDERED: METHYLPREDNISOLONE 125 MG INJ IV (12:00)
== END 2018-11-20 19:55 | disposition home health service (06) | DRG 871 ==
LOC: 2NE 18:40
DX: A41.9 Sepsis, unspecified organism (principal); J18.9 Pneumonia, unspecified organism; E87.1 Hypo-osmolality and hyponatremia; M50.022 Cervical disc disorder at C5-C6 level with myelopathy; K74.60 Unspecified cirrhosis of liver; B18.2 Chronic viral hepatitis C; E87.6 Hypokalemia; D50.9 Iron deficiency anemia, unspecified; F32.9 Major depressive disorder, single episode, unspecified; M75.42 Impingement syndrome of left shoulder; Y95 Nosocomial condition; E66.9 Obesity, unspecified; Z68.30 Body mass index [BMI] 30.0-30.9, adult; Z98.1 Arthrodesis status; Z89.511 Acquired absence of right leg below knee
CPT/HCPCS: 71045; 80048; 80053; 80061; 81001; 83036; 83605; 83735; 84100; 84439; 84443; 85025; 94640; 94664

== ENCOUNTER 2018-11-24 07:24 | Inpatient (IN) | payer OTHER ==
[2018-11-24] MEDS: HYDROmorphONE 2 MG/ML SYG IM (07:59)
[2018-11-24] MEDS: ONDANSETRON (ODT) 4 MG TAB ODT (07:59)
[2018-11-24 08:42] LABS: ADD MAN DIFF? NO
[2018-11-24 08:44] LABS: BASOPHILS % 0.1 % (0.0-2.0); EOSINOPHILS % 0.1 % (0.0-7.0); HEMATOCRIT 40.3 % (42.0-52.0); LYMPHOCYTES # 0.7 10^3/ul (0.8-2.9); MEAN CORPUSCULAR HGB CONC 32.3 g/dl (32.0-37.0); MEAN CORPUSCULAR VOLUME 86.7 fl (82.0-101.0); MEAN PLATELET VOLUME 10.8 fl (7.4-10.4); MONOCYTE # 0.6 10^3/ul (0.3-0.9); MONOCYTES % 9.1 % (0.0-11.0); NEUTROPHIL # 5.3 10^3/ul (1.6-7.5); NEUTROPHILS % 79.2 % (39.0-77.0); PLATELET COUNT 253 10^3/UL (140-415); RED BLOOD COUNT 4.65 10^6/ul (4.70-6.10); RED CELL DISTRIBUTION WIDTH 16.3 % (11.5-14.5)
[2018-11-24 08:44] LABS: WHITE BLOOD COUNT 6.7 10^3/ul (4.8-10.8)
[2018-11-24 09:00] LABS: INR 1.04; PARTIAL THROMBOPLASTIN TIME 24.2 Sec (23.0-35.0); PROTIME 13.7 Sec (11.9-14.9); PT RATIO 1.1
[2018-11-24 09:06] LABS: ALANINE AMINOTRANSFERASE 48 IU/L (13-69); ALBUMIN 3.7 g/dl (3.3-4.9); ALBUMIN/GLOBULIN RATIO 0.88; ALKALINE PHOSPHATASE 228 IU/L (42-121); ANION GAP 11 (5-13); ASPARTATE AMINO TRANSFERASE 45 IU/L (15-46); BILIRUBIN,INDIRECT 0.2 mg/dl (0-1.1); BILIRUBIN,TOTAL 0.2 mg/dl (0.2-1.3); BLOOD UREA NITROGEN 17 mg/dl (7-20); CALCIUM 8.9 mg/dl (8.4-10.2); CARBON DIOXIDE 21 mmol/L (21-31); CHLORIDE 109 mmol/L (97-110); Estimated GFR > 60 mL/min (>60); GLUCOSE 186 mg/dl (70-220); POTASSIUM 4.8 mmol/L (3.5-5.1); SODIUM 141 mmol/L (135-144); TOTAL PROTEIN 7.9 g/dl (6.1-8.1)
[2018-11-24 09:18] LABS: TROPONIN-I < 0.012 ng/ml (0.000-0.120)
[2018-11-24] MEDS: HYDROmorphONE 1 MG/ML SYG IV ×3 (10:58→23:43)
[2018-11-24] MEDS: ONDANSETRON 4 MG INJ IV (10:58)
[2018-11-24] MEDS: HYDROmorphONE 0.5 MG/0.5 ML SYG IV (11:52)
[2018-11-24] MEDS ORDERED: NACL 0.9% 3 ML SYG IV (12:00)
[2018-11-24] MEDS ORDERED: ONDANSETRON 4 MG INJ IV ×2 (12:00→16:30)
[2018-11-24] MEDS: METHYLPREDNISOLONE 125 MG INJ IV (12:04)
[2018-11-24] MEDS ORDERED: HYDROmorphONE 0.5 MG/0.5 ML SYG IV ×2 (14:26→16:00)
[2018-11-24] MEDS: SOD CHLORIDE 0.9% 1,000 ML IV ×2 (14:28→21:18)
[2018-11-24] MEDS ORDERED: PROPOFOL 20 ML (16:23)
[2018-11-24] MEDS ORDERED: ROCURONIUM 50 MG INJ (16:23)
[2018-11-24] MEDS ORDERED: ROPIVACAINE 0.5 % 30 ML VIAL (16:24)
[2018-11-24] MEDS ORDERED: MIDAZOLAM 1 MG/ML 2 ML INJ ×2 (16:24)
[2018-11-24] MEDS ORDERED: HYDROmorphONE 2 MG/ML SYG (16:24)
[2018-11-24] MEDS ORDERED: morphine (1 MG/ML) 10ML SYRINGE IV ×2 (16:30)
[2018-11-24] MEDS ORDERED: EPHEDrine SULFATE 50 MG/5 ML SYG IV (16:30)
[2018-11-24] MEDS ORDERED: MEPERIDINE 25 MG INJ IV (16:30)
[2018-11-24] MEDS ORDERED: OXYCODONE/ACETAMINOPHEN (5/325) TAB PO ×2 (16:30)
[2018-11-24] MEDS ORDERED: METOCLOPRAMIDE 10 MG INJ IV (16:30)
[2018-11-24] MEDS ORDERED: HYDROmorphONE 1 MG/5 ML IV SYRINGE IV ×2 (16:30)
[2018-11-24] MEDS ORDERED: METOCLOPRAMIDE 10 MG INJ (17:35)
[2018-11-24] MEDS ORDERED: DEXAMETHASONE 4 MG/ML 5 ML INJ (17:35)
[2018-11-24] MEDS ORDERED: ONDANSETRON 4 MG INJ (17:35)
[2018-11-24] MEDS ORDERED: GLYCOPYRROLATE 0.4 MG INJ ×2 (19:44)
[2018-11-24] MEDS ORDERED: NEOSTIGMINE 10 MG INJ (19:44)
[2018-11-24] MEDS: LABETALOL HCL 20MG INJ IV (20:03)
[2018-11-24] MEDS: HYDROmorphONE 1 MG/5 ML IV SYRINGE IV ×2 (20:17→20:24)
[2018-11-24] MEDS: DIPHENHYDRAMINE 50 MG INJ IV (20:26)
[2018-11-24] MEDS: CEFAZOLIN 2 GM/50 ML (PMX) 50 ML IVPB (21:17)
[2018-11-25] MEDS: HYDROmorphONE 1 MG/ML SYG IV (04:14)
[2018-11-25] MEDS: CEFAZOLIN 2 GM/50 ML (PMX) 50 ML IVPB ×2 (05:34→14:18)
[2018-11-25 05:37] LABS: ADD MAN DIFF? NO
[2018-11-25 05:46] LABS: WHITE BLOOD COUNT 12.2 10^3/ul (4.8-10.8)
[2018-11-25 05:46] LABS: BASOPHILS % 0.2 % (0.0-2.0); HEMATOCRIT 35.1 % (42.0-52.0); HEMOGLOBIN 11.2 g/dl (14.0-18.0); LYMPHOCYTES # 0.6 10^3/ul (0.8-2.9); LYMPHOCYTES % 4.9 % (15.0-51.0); MEAN CORPUSCULAR HEMOGLOBIN 27.9 pg (29.0-33.0); MEAN CORPUSCULAR HGB CONC 31.9 g/dl (32.0-37.0); MEAN CORPUSCULAR VOLUME 87.5 fl (82.0-101.0); MEAN PLATELET VOLUME 10.7 fl (7.4-10.4); MONOCYTE # 1.2 10^3/ul (0.3-0.9); MONOCYTES % 9.5 % (0.0-11.0); NEUTROPHIL # 10.3 10^3/ul (1.6-7.5); NEUTROPHILS % 84.4 % (39.0-77.0); PLATELET COUNT 236 10^3/UL (140-415); RED BLOOD COUNT 4.01 10^6/ul (4.70-6.10); RED CELL DISTRIBUTION WIDTH 16.1 % (11.5-14.5)
[2018-11-25] MEDS ORDERED: HYDROmorphONE 1 MG/ML SYG IV (06:00)
[2018-11-25] MEDS: HYDROmorphONE 2 MG/ML SYG IV ×5 (06:16→22:43)
[2018-11-25 06:27] LABS: MAGNESIUM 1.9 mg/dl (1.7-2.5)
[2018-11-25 06:27] LABS: PHOSPHORUS 3.3 mg/dl (2.5-4.9)
[2018-11-25 06:54] LABS: ALANINE AMINOTRANSFERASE 31 IU/L (13-69); ALBUMIN 3.2 g/dl (3.3-4.9); ALBUMIN/GLOBULIN RATIO 0.91; ALKALINE PHOSPHATASE 133 IU/L (42-121); ANION GAP 11 (5-13); ASPARTATE AMINO TRANSFERASE 27 IU/L (15-46); BILIRUBIN,INDIRECT 0.6 mg/dl (0-1.1); BILIRUBIN,TOTAL 0.6 mg/dl (0.2-1.3); BLOOD UREA NITROGEN 19 mg/dl (7-20); CALCIUM 8.7 mg/dl (8.4-10.2); CARBON DIOXIDE 22 mmol/L (21-31); CHLORIDE 106 mmol/L (97-110); CREATININE 0.78 mg/dl (0.61-1.24); Estimated GFR > 60 mL/min (>60); GLUCOSE 158 mg/dl (70-220); POTASSIUM 4.4 mmol/L (3.5-5.1); SODIUM 139 mmol/L (135-144); TOTAL PROTEIN 6.7 g/dl (6.1-8.1)
[2018-11-25] MEDS: SERTRALINE 50 MG TAB PO (08:42)
[2018-11-25] MEDS ORDERED: oxyCODONE 5 MG TAB PO ×4 (09:30→10:30)
[2018-11-25] MEDS ORDERED: oxyCODONE 15 MG TAB PO (09:30)
[2018-11-25] MEDS: oxyCODONE 15 MG TAB PO ×3 (11:55→21:13)
[2018-11-25] MEDS: SOD CHLORIDE 0.9% 1,000 ML IV (15:40)
[2018-11-25] MEDS ORDERED: ACETAMINOPHEN 325 MG TAB PO (19:00)
[2018-11-25] MEDS: LACTOBACILLUS RHAMNOSUS CAP PO (21:12)
[2018-11-26] MEDS: oxyCODONE 15 MG TAB PO ×5 (01:11→23:41)
[2018-11-26] MEDS: HYDROmorphONE 2 MG/ML SYG IV ×5 (03:05→20:25)
[2018-11-26 05:14] LABS: ADD MAN DIFF? NO
[2018-11-26 05:17] LABS: WHITE BLOOD COUNT 15.4 10^3/ul (4.8-10.8)
[2018-11-26 05:17] LABS: ABNORMAL IP MESSAGE 1; BASOPHILS % 0.2 % (0.0-2.0); EOSINOPHILS % 0.1 % (0.0-7.0); HEMATOCRIT 35.2 % (42.0-52.0); HEMOGLOBIN 11.1 g/dl (14.0-18.0); LYMPHOCYTES # 1.5 10^3/ul (0.8-2.9); LYMPHOCYTES % 9.9 % (15.0-51.0); MEAN CORPUSCULAR HEMOGLOBIN 27.6 pg (29.0-33.0); MEAN CORPUSCULAR HGB CONC 31.5 g/dl (32.0-37.0); MEAN CORPUSCULAR VOLUME 87.6 fl (82.0-101.0); MEAN PLATELET VOLUME 10.5 fl (7.4-10.4); MONOCYTE # 3.3 10^3/ul (0.3-0.9); MONOCYTES % 21.6 % (0.0-11.0); NEUTROPHIL # 10.3 10^3/ul (1.6-7.5); NEUTROPHILS % 66.7 % (39.0-77.0); PLATELET COUNT 241 10^3/UL (140-415); POSITIVE DIFF @See below; RED BLOOD COUNT 4.02 10^6/ul (4.70-6.10); RED CELL DISTRIBUTION WIDTH 16.2 % (11.5-14.5)
[2018-11-26 05:34] LABS: ALANINE AMINOTRANSFERASE 37 IU/L (13-69); ALBUMIN 3.4 g/dl (3.3-4.9); ALBUMIN/GLOBULIN RATIO 0.91; ALKALINE PHOSPHATASE 161 IU/L (42-121); ANION GAP 10 (5-13); ASPARTATE AMINO TRANSFERASE 25 IU/L (15-46); BILIRUBIN,INDIRECT 0.7 mg/dl (0-1.1); BILIRUBIN,TOTAL 0.7 mg/dl (0.2-1.3); BLOOD UREA NITROGEN 22 mg/dl (7-20); CALCIUM 8.9 mg/dl (8.4-10.2); CARBON DIOXIDE 25 mmol/L (21-31); CHLORIDE 101 mmol/L (97-110); CREATININE 0.87 mg/dl (0.61-1.24); Estimated GFR > 60 mL/min (>60); GLUCOSE 123 mg/dl (70-220); POTASSIUM 4.1 mmol/L (3.5-5.1); SODIUM 136 mmol/L (135-144); TOTAL PROTEIN 7.1 g/dl (6.1-8.1)
[2018-11-26 05:43] LABS: HEMOGLOBIN A1C 5.7 % (0-5.9)
[2018-11-26 05:53] LABS: MAGNESIUM 1.9 mg/dl (1.7-2.5)
[2018-11-26 05:53] LABS: PHOSPHORUS 3.9 mg/dl (2.5-4.9)
[2018-11-26] MEDS: SERTRALINE 50 MG TAB PO (08:51)
[2018-11-26] MEDS: FAMOTIDINE 20 MG TAB PO (08:51)
[2018-11-26] MEDS: LACTOBACILLUS RHAMNOSUS CAP PO ×2 (08:51→20:25)
[2018-11-26] MEDS: ENOXAPARIN 30 MG/0.3 ML SYG SC (08:58)
[2018-11-26] MEDS ORDERED: DOCUSATE SODIUM 100 MG CAP PO (14:30)
[2018-11-27] MEDS: HYDROmorphONE 2 MG/ML SYG IV ×2 (03:19→08:10)
[2018-11-27] MEDS: oxyCODONE 15 MG TAB PO ×4 (04:42→19:51)
[2018-11-27] MEDS: LACTOBACILLUS RHAMNOSUS CAP PO ×2 (08:48→21:28)
[2018-11-27] MEDS: FAMOTIDINE 20 MG TAB PO (08:48)
[2018-11-27] MEDS: SERTRALINE 50 MG TAB PO (08:48)
[2018-11-27] MEDS: ENOXAPARIN 30 MG/0.3 ML SYG SC (08:50)
[2018-11-27] MEDS ORDERED: BISACODYL 10 MG SUPP PR (15:00)
[2018-11-27] MEDS: BISACODYL (EC) 5 MG TAB PO (15:25)
[2018-11-27] MEDS: HYDROmorphONE 1 MG/ML SYG IV ×2 (17:36→23:58)
[2018-11-28] MEDS: oxyCODONE 15 MG TAB PO ×4 (03:53→22:11)
[2018-11-28] MEDS: HYDROmorphONE 1 MG/ML SYG IV ×3 (06:59→18:58)
[2018-11-28] MEDS: LACTOBACILLUS RHAMNOSUS CAP PO ×2 (09:02→20:50)
[2018-11-28] MEDS: FAMOTIDINE 20 MG TAB PO (09:03)
[2018-11-28] MEDS: SERTRALINE 50 MG TAB PO (09:03)
[2018-11-28] MEDS: ENOXAPARIN 30 MG/0.3 ML SYG SC (09:03)
[2018-11-29] MEDS: HYDROmorphONE 1 MG/ML SYG IV ×4 (00:32→19:53)
[2018-11-29] MEDS: oxyCODONE 15 MG TAB PO ×5 (02:34→21:28)
[2018-11-29 04:59] LABS: ADD MAN DIFF? NO
[2018-11-29 05:06] LABS: WHITE BLOOD COUNT 12.7 10^3/ul (4.8-10.8)
[2018-11-29 05:06] LABS: ABNORMAL IP MESSAGE 1; BASOPHILS % 0.2 % (0.0-2.0); EOSINOPHILS # 0.5 10^3/ul (0.0-0.5); EOSINOPHILS % 3.9 % (0.0-7.0); HEMATOCRIT 31.9 % (42.0-52.0); HEMOGLOBIN 10.3 g/dl (14.0-18.0); LYMPHOCYTES # 1.9 10^3/ul (0.8-2.9); LYMPHOCYTES % 14.6 % (15.0-51.0); MEAN CORPUSCULAR HEMOGLOBIN 28.6 pg (29.0-33.0); MEAN CORPUSCULAR HGB CONC 32.3 g/dl (32.0-37.0); MEAN CORPUSCULAR VOLUME 88.6 fl (82.0-101.0); MEAN PLATELET VOLUME 10.2 fl (7.4-10.4); MONOCYTE # 1.7 10^3/ul (0.3-0.9); MONOCYTES % 13.3 % (0.0-11.0); NEUTROPHIL # 8.6 10^3/ul (1.6-7.5); NEUTROPHILS % 67.2 % (39.0-77.0); PLATELET COUNT 246 10^3/UL (140-415); POSITIVE DIFF @See below; RED CELL DISTRIBUTION WIDTH 16.7 % (11.5-14.5)
[2018-11-29 05:28] LABS: ALANINE AMINOTRANSFERASE 39 IU/L (13-69); ALBUMIN 3.2 g/dl (3.3-4.9); ALBUMIN/GLOBULIN RATIO 0.94; ALKALINE PHOSPHATASE 179 IU/L (42-121); ANION GAP 6 (5-13); ASPARTATE AMINO TRANSFERASE 39 IU/L (15-46); BILIRUBIN,INDIRECT 0.8 mg/dl (0-1.1); BILIRUBIN,TOTAL 0.8 mg/dl (0.2-1.3); BLOOD UREA NITROGEN 14 mg/dl (7-20); CALCIUM 8.4 mg/dl (8.4-10.2); CARBON DIOXIDE 28 mmol/L (21-31); CHLORIDE 98 mmol/L (97-110); CREATININE 0.76 mg/dl (0.61-1.24); Estimated GFR > 60 mL/min (>60); GLUCOSE 105 mg/dl (70-220); MAGNESIUM 1.7 mg/dl (1.7-2.5); PHOSPHORUS 3.3 mg/dl (2.5-4.9); SODIUM 132 mmol/L (135-144); TOTAL PROTEIN 6.6 g/dl (6.1-8.1)
[2018-11-29] MEDS: LACTOBACILLUS RHAMNOSUS CAP PO ×2 (08:31→19:53)
[2018-11-29] MEDS: SERTRALINE 50 MG TAB PO (08:31)
[2018-11-29] MEDS: FAMOTIDINE 20 MG TAB PO (08:32)
[2018-11-29] MEDS: ENOXAPARIN 40 MG/0.4 ML SYG SC (08:34)
[2018-11-29] MEDS: AZITHROMYCIN 250 MG TAB PO (21:53)
[2018-11-29] MEDS: predniSONE 20 MG TAB PO (21:53)
[2018-11-30] MEDS: HYDROmorphONE 1 MG/ML SYG IV ×3 (02:08→17:26)
[2018-11-30] MEDS: oxyCODONE 15 MG TAB PO ×4 (05:26→22:50)
[2018-11-30] MEDS: predniSONE 20 MG TAB PO (08:33)
[2018-11-30] MEDS: FAMOTIDINE 20 MG TAB PO (08:33)
[2018-11-30] MEDS: SERTRALINE 50 MG TAB PO (08:34)
[2018-11-30] MEDS: LACTOBACILLUS RHAMNOSUS CAP PO ×2 (08:35→20:36)
[2018-11-30] MEDS: ENOXAPARIN 40 MG/0.4 ML SYG SC (08:41)
[2018-11-30] MEDS: AZITHROMYCIN 250 MG TAB PO (20:36)
[2018-12-01] MEDS: HYDROmorphONE 1 MG/ML SYG IV ×4 (00:46→19:01)
[2018-12-01] MEDS: oxyCODONE 15 MG TAB PO ×4 (03:10→20:57)
[2018-12-01] MEDS: ALBUTEROL HFA 8 GM INHALER INH ×2 (08:03→22:10)
[2018-12-01] MEDS: SERTRALINE 50 MG TAB PO (10:08)
[2018-12-01] MEDS: FAMOTIDINE 20 MG TAB PO (10:08)
[2018-12-01] MEDS: LACTOBACILLUS RHAMNOSUS CAP PO ×2 (10:08→20:57)
[2018-12-01] MEDS: predniSONE 20 MG TAB PO (10:08)
[2018-12-01] MEDS: CEPASTAT LOZENGE MT (10:09)
[2018-12-01] MEDS: ENOXAPARIN 40 MG/0.4 ML SYG SC (10:16)
[2018-12-01] MEDS: AZITHROMYCIN 250 MG TAB PO (20:56)
[2018-12-02] MEDS: HYDROmorphONE 1 MG/ML SYG IV ×4 (01:05→19:44)
[2018-12-02] MEDS: oxyCODONE 15 MG TAB PO ×4 (02:43→22:01)
[2018-12-02] MEDS: CEPASTAT LOZENGE MT (02:43)
[2018-12-02] MEDS: LACTOBACILLUS RHAMNOSUS CAP PO ×2 (08:32→21:09)
[2018-12-02] MEDS: FAMOTIDINE 20 MG TAB PO (08:32)
[2018-12-02] MEDS: predniSONE 20 MG TAB PO (08:32)
[2018-12-02] MEDS: SERTRALINE 50 MG TAB PO (08:34)
[2018-12-02] MEDS: ENOXAPARIN 40 MG/0.4 ML SYG SC (08:34)
[2018-12-02] MEDS ORDERED: ZOLPIDEM 5 MG TAB PO (21:00)
[2018-12-03] MEDS: HYDROmorphONE 1 MG/ML SYG IV ×4 (01:30→13:51)
[2018-12-03] MEDS: oxyCODONE 15 MG TAB PO ×3 (02:53→12:35)
[2018-12-03 05:23] LABS: ADD MAN DIFF? NO
[2018-12-03 05:27] LABS: BASOPHILS % 0.3 % (0.0-2.0); EOSINOPHILS % 0.1 % (0.0-7.0); HEMATOCRIT 34.5 % (42.0-52.0); HEMOGLOBIN 10.8 g/dl (14.0-18.0); LYMPHOCYTES # 2.2 10^3/ul (0.8-2.9); MEAN CORPUSCULAR HEMOGLOBIN 28.3 pg (29.0-33.0); MEAN CORPUSCULAR HGB CONC 31.3 g/dl (32.0-37.0); MEAN CORPUSCULAR VOLUME 90.3 fl (82.0-101.0); MEAN PLATELET VOLUME 10.1 fl (7.4-10.4); MONOCYTE # 1.3 10^3/ul (0.3-0.9); MONOCYTES % 12.1 % (0.0-11.0); NEUTROPHIL # 7.3 10^3/ul (1.6-7.5); NEUTROPHILS % 66.9 % (39.0-77.0); PLATELET COUNT 221 10^3/UL (140-415); RED BLOOD COUNT 3.82 10^6/ul (4.70-6.10); RED CELL DISTRIBUTION WIDTH 17.2 % (11.5-14.5)
[2018-12-03 05:27] LABS: WHITE BLOOD COUNT 10.9 10^3/ul (4.8-10.8)
[2018-12-03 05:41] LABS: PHOSPHORUS 3.1 mg/dl (2.5-4.9)
[2018-12-03 05:41] LABS: MAGNESIUM 1.6 mg/dl (1.7-2.5)
[2018-12-03 05:44] LABS: ANION GAP 7 (5-13); BLOOD UREA NITROGEN 15 mg/dl (7-20); CALCIUM 8.9 mg/dl (8.4-10.2); CARBON DIOXIDE 30 mmol/L (21-31); CHLORIDE 102 mmol/L (97-110); CREATININE 0.73 mg/dl (0.61-1.24); Estimated GFR > 60 mL/min (>60); GLUCOSE 89 mg/dl (70-220); POTASSIUM 3.8 mmol/L (3.5-5.1); SODIUM 139 mmol/L (135-144)
[2018-12-03] MEDS: CEPASTAT LOZENGE MT ×3 (05:52→08:38)
[2018-12-03] MEDS: SERTRALINE 50 MG TAB PO (08:38)
[2018-12-03] MEDS: FAMOTIDINE 20 MG TAB PO (08:39)
[2018-12-03] MEDS: predniSONE 20 MG TAB PO (08:39)
[2018-12-03] MEDS: LACTOBACILLUS RHAMNOSUS CAP PO (08:39)
[2018-12-03] MEDS: ENOXAPARIN 40 MG/0.4 ML SYG SC (08:42)
[2018-12-03] MEDS: GUAIFENESIN 20 MG/ML 5ML CUP PO (12:38)
[2018-12-03] MEDS: MAGNESIUM SULFATE 2 GM/50 ML 50 ML IVPB (12:38)
== END 2018-12-03 15:00 | DRG 502 ==
LOC: E/R 07:24 → MS1 11:28
PROC: 0PSK04Z Reposition Right Ulna with Internal Fixation Device, Open Approach (ICD-10-PCS; principal; 2018-11-24 16:00)
PROC: 0LQ30ZZ Repair Right Upper Arm Tendon, Open Approach (ICD-10-PCS; 2018-11-24 16:00)
DX: S52.021A Displaced fracture of olecranon process without intraarticular extension of right ulna, initial encounter for closed fracture (principal); F32.9 Major depressive disorder, single episode, unspecified; N50.819 Testicular pain, unspecified; B19.20 Unspecified viral hepatitis C without hepatic coma; K74.69 Other cirrhosis of liver; M67.823 Other specified disorders of tendon, right elbow; R53.81 Other malaise; R05 Cough; V00.148A Other scooter (nonmotorized) accident, initial encounter; D64.9 Anemia, unspecified; Z99.3 Dependence on wheelchair; Z89.511 Acquired absence of right leg below knee
CPT/HCPCS: 71045; 73070; 73080-RT; 73090-RT; 73200; 76870; 80048; 80053; 83036; 83735; 84100; 84443; 84484; 85025; 85610; 85730; 93005; 96372; 97110; 97161; 97165; 97530; 97535; 99285-25

== ENCOUNTER → 2018-12-20 | Outpatient (CLI) | payer OTHER | END | disposition home or self-care (01) | LOC: HKI 14:29 | DX: S52.021D Displaced fracture of olecranon process without intraarticular extension of right ulna, subsequent encounter for closed fracture with routine healing (principal); X58.XXXD Exposure to other specified factors, subsequent encounter; Z96.651 Presence of right artificial knee joint | CPT/HCPCS: 73080; 73080-RT ==

== ENCOUNTER → 2019-01-16 | Outpatient (CLI) | payer OTHER | END | disposition home or self-care (01) | LOC: HKI 13:46 | DX: S52.021D Displaced fracture of olecranon process without intraarticular extension of right ulna, subsequent encounter for closed fracture with routine healing (principal); X58.XXXD Exposure to other specified factors, subsequent encounter; Z89.511 Acquired absence of right leg below knee | CPT/HCPCS: 73080; 73080-RT ==

== ENCOUNTER → 2019-02-13 | Outpatient (CLI) | payer OTHER | END | disposition home or self-care (01) | LOC: HKI 13:54 | DX: S52.021D Displaced fracture of olecranon process without intraarticular extension of right ulna, subsequent encounter for closed fracture with routine healing (principal); X58.XXXD Exposure to other specified factors, subsequent encounter; Z89.511 Acquired absence of right leg below knee ==